=== PATIENT | female | born 1970 | race Caucasian/White ===

== ENCOUNTER 2020-01-11 13:20 | Outpatient (REF) | payer OTHER, SELFPAY | END 2020-01-11 13:21 | disposition home or self-care (01) | LOC: HO.LAB 13:20 | PROVIDERS: PCP Family Medicine; Visit Provider Internal Medicine | DX: Z20.828 Contact with and (suspected) exposure to other viral communicable diseases (principal) | CPT/HCPCS: C9803; U0003 ==

== ENCOUNTER 2020-12-12 12:24 | Outpatient (REF) | payer MEDICAID, SELFPAY | END 2020-12-12 12:25 | disposition home or self-care (01) | LOC: HO.LAB 12:24 | PROVIDERS: PCP Family Medicine; Visit Provider Internal Medicine | DX: Z20.822 Contact with and (suspected) exposure to COVID-19 (principal) | CPT/HCPCS: C9803; U0003; U0005 ==

== ENCOUNTER 2020-12-20 11:20 | Outpatient (REF) | payer MEDICAID, SELFPAY | END 2020-12-20 11:21 | disposition home or self-care (01) | LOC: HO.LAB 11:20 | PROVIDERS: PCP Family Medicine; Visit Provider Internal Medicine | DX: Z20.822 Contact with and (suspected) exposure to COVID-19 (principal) | CPT/HCPCS: C9803; U0003; U0005 ==

== ENCOUNTER 2021-02-26 10:32 | Outpatient (REF) | payer MEDICAID, SELFPAY ==
--- NOTE | ~2021-02-26 | MM_ITS ---
EXAMINATION: MM SCREENING DIGITAL BREAST TOMOSYNTHESIS, BILATERAL CLINICAL INFORMATION: Screening. Asymptomatic. The lifetime risk of breast cancer based on the Tyrer-Cuzick Model is 6%. COMPARISON: Mammography: 12/16/2018, 02/19/2015, 08/07/2014, 07/09/2014; right breast ultrasound 08/07/2014. TECHNIQUE: Digital breast tomosynthesis is performed in both the craniocaudal and mediolateral oblique views along with computer-aided detection (CAD). Synthesized 2D images are generated from the tomosynthesis. FINDINGS: There are scattered areas of fibroglandular density (ACR BI-RADS breast composition Category b). There are no significant masses, abnormal calcifications, or other abnormalities. No developing density. No significant changes. The axilla and skin contours are unremarkable. MM/MM tomosynthesis screening BI IMPRESSION: No mammographic evidence of malignancy. ASSESSMENT: BI-RADS 1: Negative RECOMMENDATION: Routine annual mammography screening. This patient's information was entered into a reminder system with a target due date for their next mammogram.
== END 2021-02-26 10:33 | disposition home or self-care (01) ==
LOC: HO.MAMMO 10:32
PROVIDERS: Visit Provider Family Medicine
DX: Z12.31 Encounter for screening mammogram for malignant neoplasm of breast (principal)
CPT/HCPCS: 77063; 77067

== ENCOUNTER → 2021-03-26 09:41 | Outpatient (BNVA) | payer MEDICAID, SELFPAY | PROVIDERS: PCP Family Medicine; Referring Provider Family Medicine; Visit Provider Nurse Practitioner Family | DX: K58.1 Irritable bowel syndrome with constipation (principal); K21.9 Gastro-esophageal reflux disease without esophagitis; R14.0 Abdominal distension (gaseous); E55.9 Vitamin D deficiency, unspecified | CPT/HCPCS: 99202 ==

== ENCOUNTER 2021-04-18 17:00 | Outpatient (RCR) | payer MEDICAID, SELFPAY | END 2021-05-02 11:32 | disposition home or self-care (01) | LOC: HO.PT 17:00 | PROVIDERS: PCP Family Medicine; Visit Provider Family Medicine | DX: M72.2 Plantar fascial fibromatosis (principal) | CPT/HCPCS: 97110; 97140; 97162 ==

== ENCOUNTER 2021-04-26 09:57 | Outpatient (REF) | payer MEDICAID, SELFPAY ==
[2021-04-26 11:25] LABS: TSH reflex Free T4 0.96 uIU/mL (0.32-4.0)
[2021-04-26 11:37] LABS: Folate 14.4 ng/mL (> or = 4.0); Vitamin B12 892 pg/mL (200-900)
[2021-04-29 15:17] LABS: Transglutaminase Ab IgG 1.2 U/mL; Transglutaminase IgA <1.0 U/mL
[2021-05-02 11:47] LABS: Vitamin D 25-OH, D2 <4 ng/mL; Vitamin D 25-OH, D3 31 ng/mL; Vitamin D 25-OH, Total 31 ng/mL (30-100)
== END 2021-04-26 09:58 | disposition home or self-care (01) ==
LOC: HO.LAB 09:57
PROVIDERS: PCP Family Medicine; Visit Provider Nurse Practitioner Family
DX: R10.11 Right upper quadrant pain (principal); R14.0 Abdominal distension (gaseous); E55.9 Vitamin D deficiency, unspecified; R19.7 Diarrhea, unspecified; K21.9 Gastro-esophageal reflux disease without esophagitis
CPT/HCPCS: 36415; 82306; 82607; 82746; 84443; 86364; 87338

== ENCOUNTER 2021-04-30 08:18 | Outpatient (REF) | payer MEDICAID, SELFPAY ==
[2021-04-30 09:42] LABS: Hematocrit 41.9 % (37.0-47.0); Hemoglobin 13.4 g/dl (12.0-16.0); Mean Corpuscular Volume 90.7 fL (80.0-98.0); Mean Platelet Volume 12.4 fL (9.4-12.3); Platelet Count 251 X10*3/uL (160-400); Red Blood Count 4.62 X10*6/uL (4.20-5.50); Red Cell Distribution Width 14.2 % (11.0-16.0); White Blood Count 7.1 X10*3/uL (4.8-10.8)
[2021-04-30 10:22] LABS: Alanine Aminotransferase 19 U/L (0-31); Albumin Level 3.8 g/dL (3.5-5.0); Alkaline Phosphatase 81 U/L (39-117); Anion Gap 8 (12-20); Aspartate Amino Transferase 20 U/L (5-31); Bilirubin Total 0.4 mg/dL (0.0-1.0); Blood Urea Nitrogen 9 mg/dL (9-16); Calcium 9.4 mg/dL (8.4-10.2); Carbon Dioxide 31 mmol/L (22-29); Chloride 107 mmol/L (96-108); Estimated Glomerular Filt Rate > 60; Glucose Random 97 mg/dL (60-115); Sodium 141 mmol/L (135-145); Total Protein 6.8 g/dL (6.5-8.0)
== END 2021-04-30 08:19 | disposition home or self-care (01) ==
LOC: HO.LAB 08:18
PROVIDERS: PCP Family Medicine; Referring Provider Family Medicine; Visit Provider Nurse Practitioner Family
DX: K58.1 Irritable bowel syndrome with constipation (principal); K21.9 Gastro-esophageal reflux disease without esophagitis
CPT/HCPCS: 36415; 80053; 85027; 99212

== ENCOUNTER 2021-06-18 10:05 | Outpatient (REF) | payer MEDICAID, SELFPAY ==
--- NOTE | ~2021-06-18 | XR_ITS ---
EXAMINATION: XR FOOT, LEFT CLINICAL INFORMATION: Pain in the left foot. COMPARISON: Left ankle x-ray September 2015. TECHNIQUE: AP, lateral, and oblique views of the left foot. FINDINGS: Small plantar calcaneal spur. Bones, joints and soft tissues otherwise unremarkable. XR/XR foot LT min 3V IMPRESSION: Small plantar calcaneal spur.
== END 2021-06-18 10:06 | disposition home or self-care (01) ==
LOC: HO.XRAY 10:05
PROVIDERS: Absent Provider Family Medicine; PCP Family Medicine; Visit Provider Emergency Medicine
DX: M79.672 Pain in left foot (principal)
CPT/HCPCS: 73630

== ENCOUNTER 2021-07-12 09:35 | Day surgery (SDC) | payer MEDICAID, SELFPAY ==
[2021-07-08 10:09] VITALS: BMI 32.8
--- NOTE | 2021-07-11 12:05 | P.CONAN_ITS ---
Documented by User: Cindy James NP 07/11/21 12:06 HPI - Anesthesia Eval Consult details Narrative: 51yo F for Upper Endoscopy and Colonoscopy [facility] Past Medical History Medical History (Updated 07/08/21 @ 10:02 by Tamiko Madrid RN) Asthma Elevated cholesterol Fibromyalgia Gastritis History of COVID-19 HTN (hypertension) Family History Family History (Updated 03/26/21 @ 10:28 by Solange Bowden) Mother HTN (hypertension) Brother HTN (hypertension) Surgical History Surgical History (Updated 07/08/21 @ 10:02 by Tamiko Madrid RN) History of esophagogastroduodenoscopy (EGD) Hx of meniscectomy of right knee Social History Social History Alcohol intake: never Patient Tobacco Use Status: Never used Tobacco Substance Use Type Other:: last used yesterday Substance Use Frequency: Daily Are you DNR?: No Advance Directives: No Advance Directives Information Provided: Yes Recently lost weight without trying: No Meds Allergies Allergy/AdvReac Type Severity Reaction Status Date / Time trazodone [TRAZODONE] Allergy Severe SEIZURE Verified 04/30/21 08:23 tramadol Allergy Unknown seizures Verified 04/30/21 08:23 Home Medications Medication Instructions Recorded Confirmed Last Taken Type amlodipine 10 mg tablet 10 mg PO DAILY 03/26/21 03/26/21 Unknown History cholecalciferol (vitamin D3) 50 50 mcg PO DAILY 03/26/21 03/26/21 Unknown History mcg (2,000 unit) capsule mecobalamin (vitamin B12) 1,000 1,000 mcg SUBLINGUAL BEDTIME 03/26/21 03/26/21 Unknown History mcg disintegrating tablet,sublingual pregabalin 150 mg capsule (Lyrica) 150 mg PO BID 03/26/21 03/26/21 Unknown History quetiapine 50 mg tablet (Seroquel) 50 mg PO BEDTIME 03/26/21 03/26/21 Unknown [facility] Exam Exam Date and Time: July 11, 2021 1205 Height,Weight and Vital Signs: Height 5 ft 7 in Weight 94.971 kg Pertinent Lab Results Pertinent Lab Results: Laboratory Tests 04/30/21 04/30/21 09:15 09:15 WBC 7.1 Hgb 13.4 Hct 41.9 Plt Count 251 Sodium 141 Potassium 5.0 Chloride 107 Carbon Dioxide 31 H BUN 9 Creatinine 0.83 Assessment and Plan Assessment Anesthesia Assessment: Chart Reviewed Documented by User: Shirley Rod MD 07/12/21 10:59 [facility] Past Medical History Medical History (Updated 07/08/21 @ 10:02 by Tamiko Madrid, CHYNA) Asthma Elevated cholesterol Fibromyalgia Gastritis History of COVID-19 HTN (hypertension) Family History Family History (Updated 03/26/21 @ 10:28 by Solange Bowden) Mother HTN (hypertension) Brother HTN (hypertension) Family history of problems with anesthesia: No Surgical History Surgical History (Updated 07/08/21 @ 10:02 by Tamiko Madrid RN) History of esophagogastroduodenoscopy (EGD) Hx of meniscectomy of right knee History of Problems with Anesthesia: No Social History Social History Alcohol intake: never Patient Tobacco Use Status: Never used Tobacco Substance Use Type Other:: last used yesterday Substance Use Frequency: Daily Are you DNR?: No Advance Directives: No Advance Directives Information Provided: Yes Recently lost weight without trying: No Meds Allergies Allergy/AdvReac Type Severity Reaction Status Date / Time trazodone [TRAZODONE] Allergy Severe SEIZURE Verified 04/30/21 08:23 tramadol Allergy Unknown seizures Verified 04/30/21 08:23 Home Medications Medication Instructions Recorded Confirmed Last Taken Type amlodipine 10 mg tablet 10 mg PO DAILY 03/26/21 03/26/21 Unknown History cholecalciferol (vitamin D3) 50 50 mcg PO DAILY 03/26/21 03/26/21 Unknown History mcg (2,000 unit) capsule mecobalamin (vitamin B12) 1,000 1,000 mcg SUBLINGUAL BEDTIME 03/26/21 03/26/21 Unknown History mcg disintegrating tablet,sublingual pregabalin 150 mg capsule (Lyrica) 150 mg PO BID 03/26/21 03/26/21 Unknown History quetiapine 50 mg tablet (Seroquel) 50 mg PO BEDTIME 03/26/21 03/26/21 Unknown History Exam Airway Mallampati Class: II TM Dist: >3cm Neck ROM: Full Heart: rrr Lungs: cta Assessment and Plan Assessment Anesthesia Assessment: Anesthesia Plan Discussed and Chart Reviewed Final Anesthetic Review Family History of Problems with Anesthesia: No History of Problems with Anesthesia: No NPO: Yes ASA Class: II Final Preanesthetic Review: No Changes in Pt Med Stat, Meds/Allgs Chart Reviewed and Consent Obtained/Reviewed Patient Risk: Intermediate Procedure Risk: Intermediate Anesthetic Plan Anesthetic Plan: MAC: Disposition: Standard PACU
[2021-07-12 10:50] VITALS: BMI 34.4
--- NOTE | 2021-07-12 10:56 | MHC.SHP ---
Pre-Procedural Eval Section A Date of Service: 07/12/21 The History & Physical has been completed within 30 days and I have reviewed it.: No Section B Chief Complaint: screening,reflux Details of Present Illness: Colon cancer screen, GERD, IBS Relevant Family History (Specify if Yes): No Relevant Social History: None Present Medications: see Short Stay Collaborative assessment Medical History: Significant History (asthma, fibromyalgia, history of COVID 19 infection) History of Previous Operations: Relevant previous surgery/procedure and date(s) (History of EGD) Allergies: Allergies Allergy/AdvReac Type Severity Reaction Status Date / Time trazodone [TRAZODONE] Allergy Severe SEIZURE Verified 04/30/21 08:23 tramadol Allergy Unknown seizures Verified 04/30/21 08:23 Review of Systems Sugical H&P ROS: Negative: Constitution, Cardiovascular, Respiratory and Gastrointestinal Exam Surgical H&P Exam: Normal: Heart, Normal: Lungs, Normal: Extremities and Normal: Abdomen Plan Diagnosis/Plan: Unchanged I have reviewed the history and physical and performed a pertinent physical examination on my patient. No changes have occurred unless specified.
--- NOTE | 2021-07-12 11:09 | P.BOP_ITS ---
Brief Operative Note Date of Service: 07/12/21 Pre-op diagnosis: Colon cancer screening, GERD, IBS Post-op diagnosis: other (gastritis, colon polyps, hemorrhoids) Procedure: FLEXIBLE TRANSORAL UPPER GASTROINTESTINAL ENDOSCOPY WITH BIOPSIES AND COLONOSCOPY TILL CECUM WITH BIOPSIES AND SNARE POLYPECTOMY UPPER ENDOSCOPY Consent: Indications for the procedure and potential complications of bleeding, perforation, reaction to medications and missed diagnosis were discussed with the patient and informed consent was obtained. Instrument: Olympus GIF H 190 mid size upper endoscope Monitoring: Vital signs and clinical assessment, continuous EKG monitoring, Pulse oximetry, Carbon Dioxide monitoring and blood pressure monitoring were done throughout the procedure. Procedure: The patient was placed in the left lateral decubitis position and pre-procedure medications were administered and a bite block was placed. The endoscope was inserted into the mouth and advanced under direct vision to the third part of duodenum. A careful inspection was made as the upper endoscope was withdrawn including a retroflexed examination of the proximal stomach; Findings and interventions are described below. Findings: Larynx: Normal Esophagus: GE junction at 40 cms. No esophagitis or Roman's. Stomach: Moderate diffuse gastric erythema with chronic appearing 1-2 mm erosions in the antrum. Biopsies were obtained from the antrum and body of the stomach. Grade 2 flap valve on retroflexed examination of the cardia. Duodenum: Normal bulb and descending duodenum. Biopsies were obtained from 3rd part of the duodenum to check for celiac sprue Intervention: Biopsies as noted above COLONOSCOPY PROCEDURE NOTE Consent: Indications for the procedure and potential complications of bleeding, perforation, reaction to medications and missed diagnosis were discussed with the patient and informed consent was obtained. Instrument: Olympus PCF H 190 L variable stiffness pediatric colonoscope Monitoring: Vital signs and clinical assessment, intermittent blood pressure monitoring, continuous EKG monitoring, Pulse oximetry and Carbon Dioxide monitoring were done throughout the procedure. Colon withdrawl time was 24 minutes. Procedure: The patient was placed in the left lateral decubitis position and pre-procedure medications were administered. After a digital rectal examination of the ano-rectum, the video colonoscope was inserted into the rectum and advanced through the colon to the cecum. The colonoscope was slowly withdrawn in a retrograde panoramic fashion and the colon mucosa was carefully examined including a retroflexed view of the rectum. Findings and interventions are described below. Procedure Difficulty: : Without difficulty Findings: Terminal Ileum: Distal 5 cms was examined and appeared normal Cecum: Normal Ascending Colon: Normal Transverse Colon: A 10 mm sessile polyp in the proximal TC removed with a cold snare. Residual polyp was removed with a cold biopsy Descending Colon: Normal Sigmoid Colon: A 7-8 mm sessile polyp removed with the cold snare Rectum: Normal Ano-rectum: Moderate internal hemorrhoids Colon preparation: Good to Fair despite copious irrigation Impression and Post Procedure Diagnosis: Endoscopy Findings: STOMACH: Moderate diffuse gastric erythema with chronic appearing 1-2 mm erosions in the antrum. Biopsies were obtained from the antrum and body of the stomach. DUODENUM: Normal - biopsied to check for celiac sprue Colonoscopy Findings: One small and one medium sized polyps removed Random biopsies obtained from the right colon. Moderate hemorrhoids on retroflexed exam. Plan: Await pathology results Patient has an appointment on 07/26/21 in the GI Clinic with Janel Lai FNP- BC . Repeat Colonoscopy interval based on path results - in 3 years if polyps are adenomatous and due to fair prep. Above findings were reviewed with the patient and colon polyps and GERD handouts were given in the discharge area Surgeon: Mary Ortega MD Anesthesia: MAC (Dr Gunn) Was an Society Reporter used for this Procedure?: Yes Society Reporter: Debbie Elizabeth Estimated blood loss (mL): 0 Pathology: other (A. SMALL BOWEL BXS, R/O CELIAC B. GASTRIC ANTRUM BXS, R/O H. PYLORI C. GASTRIC BODY BXS D. TRANSVERSE COLON POLYP E. RANDOM RIGHT COLON F. SIGMOID COLON POLYP) Condition: stable Disposition: PACU
--- NOTE | 2021-07-12 11:10 | P.OP_ITS ---
Operative Note Operative Note Date of Service: 07/12/21 Narrative: Pre-op diagnosis: Colon cancer screening, GERD, IBS Post-op diagnosis:?other (gastritis, colon polyps, hemorrhoids) Procedure: FLEXIBLE TRANSORAL UPPER GASTROINTESTINAL ENDOSCOPY WITH BIOPSIES AND COLONOSCOPY TILL CECUM WITH BIOPSIES AND SNARE POLYPECTOMY UPPER ENDOSCOPY Consent:?Indications for the procedure and potential complications of bleeding, perforation, reaction to medications and missed diagnosis were discussed with the patient and informed consent was obtained. Instrument:?Olympus GIF H 190 mid size upper endoscope Monitoring: Vital signs and clinical assessment, continuous EKG monitoring, Pulse oximetry, Carbon Dioxide monitoring and blood pressure monitoring were done throughout the procedure. Procedure:?The patient was placed in the left lateral decubitis position and pre-procedure medications were administered and a bite block was placed. The endoscope was inserted into the mouth and advanced under direct vision to the third part of duodenum. A careful inspection was made as the upper endoscope was withdrawn including a retroflexed examination of the proximal stomach; Findings and interventions are described below. Findings: Larynx:? Normal Esophagus:?GE junction at 40 cms. No esophagitis or Roman's. Stomach:?Moderate diffuse gastric erythema with chronic appearing 1-2 mm erosions in the antrum. Biopsies were obtained from the antrum and body of the stomach. Grade 2 flap valve on retroflexed examination of the cardia. Duodenum:?Normal bulb and descending duodenum.? Biopsies were obtained from 3rd part of the duodenum to check for celiac sprue Intervention:?Biopsies as noted above COLONOSCOPY PROCEDURE NOTE Consent:?Indications for the procedure and potential complications of bleeding, perforation, reaction to medications and missed diagnosis were discussed with the patient and informed consent was obtained. Instrument:?Olympus PCF H 190 L variable stiffness pediatric colonoscope Monitoring:?Vital signs and clinical assessment, intermittent blood pressure monitoring, continuous EKG monitoring, Pulse oximetry and Carbon Dioxide monitoring were done throughout the procedure. Colon withdrawl time was 24 minutes. Procedure:?The patient was placed in the left lateral decubitis position and pre-procedure medications were administered. After a digital rectal examination of the ano-rectum, the video colonoscope was inserted into the rectum and advanced through the colon to the cecum. The colonoscope was slowly withdrawn in a retrograde panoramic fashion and the colon mucosa was carefully examined including a retroflexed view of the rectum. Findings and interventions are described below. Procedure Difficulty:?: Without difficulty Findings: Terminal Ileum: Distal 5 cms was examined and appeared normal Cecum:? Normal Ascending Colon:??Normal Transverse Colon:??A 10 mm sessile polyp in the proximal TC removed with a cold snare.? Residual polyp was removed with a cold biopsy Descending Colon:? Normal Sigmoid Colon:??A 7-8 mm sessile polyp removed with the cold snare Rectum:??Normal Ano-rectum:??Moderate internal hemorrhoids Colon preparation:? Good to Fair despite copious irrigation Impression and Post Procedure Diagnosis: Endoscopy Findings: STOMACH: Moderate diffuse gastric erythema with chronic appearing 1-2 mm erosions in the antrum. Biopsies were obtained from the antrum and body of the stomach. DUODENUM: Normal - biopsied to check for celiac sprue Colonoscopy Findings: One small and one medium sized polyps removed Random biopsies obtained from the right colon. Moderate hemorrhoids on retroflexed exam. Plan: Await pathology results Patient has an appointment on 07/26/21 in the GI Clinic with Janel Lai FNP- [place] . Repeat Colonoscopy interval based on path results - in 3 years if polyps are adenomatous and due to fair prep. Above findings were reviewed with the patient and colon polyps and GERD handouts were given in the discharge area Surgeon: Mary Ortega MD Anesthesia:?MAC (Dr Gunn) Was an Mortician Helper used for this Procedure?:?Yes Mortician Helper:?Debbie Elizabeth Estimated blood loss (mL):?0 Pathology:?other (A. SMALL BOWEL BXS, R/O CELIAC? B. GASTRIC ANTRUM BXS, R/O H. PYLORI? C. GASTRIC BODY BXS? D. TRANSVERSE COLON POLYP? E. RANDOM RIGHT COLON? F. SIGMOID COLON POLYP) Condition:?stable Disposition:?PACU
[2021-07-12] MEDS: Lactated Ringers 1,000 ML 100 ML IVCONT (11:11)
[2021-07-12 12:05] VITALS: BP 128/73; PULSE 67; RESP 16; TEMP 36.2; O2SAT 97
[2021-07-12 12:20] VITALS: BP 147/79; PULSE 56; RESP 16; TEMP 36.2; O2SAT 100
== END 2021-07-12 12:52 | disposition home or self-care (01) ==
PROVIDERS: PCP Family Medicine; Visit Provider Internal Medicine Gastroenterology
PROC: (CPT 45385; principal; 2021-07-12 11:40)
DX: Z12.11 Encounter for screening for malignant neoplasm of colon (principal); D12.5 Benign neoplasm of sigmoid colon; K63.5 Polyp of colon; K58.1 Irritable bowel syndrome with constipation; K21.9 Gastro-esophageal reflux disease without esophagitis; K29.50 Unspecified chronic gastritis without bleeding; K64.8 Other hemorrhoids; I10 Essential (primary) hypertension; J45.909 Unspecified asthma, uncomplicated; E78.00 Pure hypercholesterolemia, unspecified; M79.7 Fibromyalgia; Z79.899 Other long term (current) drug therapy; Z88.8 Allergy status to other drugs, medicaments and biological substances; Z86.16 Personal history of COVID-19
CPT/HCPCS: 45385; 45380; 43239; 88305; 88342

== ENCOUNTER → 2021-09-05 16:14 | Outpatient (BNVA) | payer MEDICAID, SELFPAY | PROVIDERS: PCP Family Medicine; Visit Provider Nurse Practitioner Family | DX: K58.0 Irritable bowel syndrome with diarrhea (principal); D12.5 Benign neoplasm of sigmoid colon; K21.9 Gastro-esophageal reflux disease without esophagitis; E11.9 Type 2 diabetes mellitus without complications; Z98.890 Other specified postprocedural states | CPT/HCPCS: 99212 ==

== ENCOUNTER 2021-12-10 10:50 | Outpatient (REF) | payer MEDICAID, SELFPAY | END 2021-12-10 10:51 | disposition home or self-care (01) | LOC: HO.XRAY 10:50 | PROVIDERS: PCP Family Medicine; Visit Provider Emergency Medicine | DX: M54.41 Lumbago with sciatica, right side (principal) | CPT/HCPCS: 72110 ==

== ENCOUNTER 2022-03-27 09:39 | Outpatient (REF) | payer MEDICAID, SELFPAY ==
[2022-03-27 10:42] LABS: Estimated Average Glucose 123 mg/dL; Hemoglobin A1c % 5.9 %
[2022-03-27 11:16] LABS: Lipase 20 U/L (8-78)
== END 2022-03-27 09:40 | disposition home or self-care (01) ==
LOC: HO.LAB 09:39
PROVIDERS: PCP Family Medicine; Visit Provider Nurse Practitioner Family
DX: E11.9 Type 2 diabetes mellitus without complications (principal); R10.9 Unspecified abdominal pain
CPT/HCPCS: 36415; 83036; 83690

== ENCOUNTER 2022-03-29 12:01 | Outpatient (REF) | payer MEDICAID, SELFPAY ==
[2022-04-05 17:17] LABS: Pancreatic Elastase-1 >500 mcg/g
== END 2022-03-29 12:02 | disposition home or self-care (01) ==
LOC: HO.LNP 12:01
PROVIDERS: Visit Provider Nurse Practitioner Family
DX: K21.9 Gastro-esophageal reflux disease without esophagitis (principal); R10.9 Unspecified abdominal pain
CPT/HCPCS: 82656; 87338

== ENCOUNTER → 2022-04-21 10:18 | Outpatient (BNVA) | payer MEDICAID, SELFPAY | PROVIDERS: PCP Family Medicine; Visit Provider Nurse Practitioner Family | DX: K58.2 Mixed irritable bowel syndrome (principal); K21.9 Gastro-esophageal reflux disease without esophagitis | CPT/HCPCS: 99212 ==

== ENCOUNTER 2022-04-30 02:58 | Emergency (ER) | payer MEDICAID, SELFPAY ==
[2022-04-30 03:19] VITALS: BP 127/84; PULSE 72; RESP 18; TEMP 36.6; O2SAT 97; BMI 37.5
--- NOTE | 2022-04-30 03:57 | ED.NECK ---
HPI - Neck Pain/Injury General Chief Complaint: Neck Pain/Injury Stated Complaint: Neck pain into back Time Seen by Provider: 04/30/22 03:57 Source: patient Mode of arrival: ambulatory Limitations: no limitations History of Present Illness HPI Narrative: Patient with history of fibromyalgia woke of with pain upper back similar to that in the past no muscle weakness no paresthesia no fever no chills no URI symptoms Related Data Home Medications Medication Instructions Recorded Confirmed amlodipine 10 mg tablet 10 mg PO DAILY 03/26/21 03/26/21 cholecalciferol (vitamin D3) 50 50 mcg PO DAILY 03/26/21 03/26/21 mcg (2,000 unit) capsule mecobalamin (vitamin B12) 1,000 1,000 mcg sublingual BEDTIME 03/26/21 03/26/21 mcg disintegrating tablet,sublingual pregabalin 150 mg capsule (Lyrica) 150 mg PO BID 03/26/21 03/26/21 quetiapine 50 mg tablet (Seroquel) 50 mg PO BEDTIME 03/26/21 03/26/21 Previous Rx's Medication Instructions Recorded sennosides 8.6 mg tablet (Natural 8.6 mg PO BEDTIME constipation #30 07/24/21 Senna Laxative) tabs methylcellulose (laxative) 500 mg 500 mg PO DAILY #30 tabs 10/04/21 tablet (Citrucel) esomeprazole magnesium 40 mg 40 mg PO DAILY #30 caps 04/21/22 capsule,delayed release (Nexium) polyethylene glycol 3350 17 17 g PO DAILY #510 grams 04/21/22 gram/dose oral powder (Miralax) simethicone 125 mg capsule (Gas 125 mg PO TID-QID PRN abdominal 04/21/22 Relief (simethicone)) distention #120 caps tramadol 50 mg tablet 50 mg PO Q6H PRN pain #20 tabs 04/30/22 Allergies Allergy/AdvReac Type Severity Reaction Status Date / Time trazodone [TRAZODONE] Allergy Severe SEIZURE Verified 04/30/22 03:24 Review of Systems Review of Systems: Yes all other systems are reviewed and are negative PMFSH Past Medical History Medical History Asthma Elevated cholesterol Fibromyalgia Gastritis History of COVID-19 HTN (hypertension) Tubular adenoma Surgical History History of esophagogastroduodenoscopy (EGD) Hx of colonoscopy Hx of meniscectomy of right knee Family History Family History Mother HTN (hypertension) Brother HTN (hypertension) Social History Social History Alcohol intake: current Alcohol intake frequency: a few times a week Alcohol type: beer Patient Tobacco Use Status: Never used Tobacco Smoked in Last 30 Days: Yes Use of substances other than those prescribed or required for medical reasons: No Advance Directives: No Advance Directives Information Provided: Yes Physical Exam Vital Signs: Vital Signs: Last Vital Signs Temp 98 F 04/30/22 03:59 Pulse 63 04/30/22 03:59 Resp 15 04/30/22 03:59 BP 147/88 H 04/30/22 03:59 Pulse Ox 97 04/30/22 03:59 O2 Del Method 04/30/22 03:59 BMI result Body Mass Index 37.5 Appearance: Alert. Oriented X3. No acute distress. Eyes: PERRLA, No Nystagmus ENT: Pharynx normal. Oral Mucosa moist Neck: Normal inspection. Neck supple. No midline tenderness diffuse tenderness trapezius area bilaterally CVS: Normal heart rate and rhythm. Pulses normal. Respiratory: No respiratory distress. Equal air entry bilateral, no wheezing/rales/rhonchi Abdomen: Soft and nontender. Bowel sounds are present, Skin: Skin warm and dry. Normal skin color. Normal skin turgor. Extremities: No lower extremity edema. No calf tenderness Neuro: Oriented X 3. No motor deficit. No sensory deficit.No cerebellar signs , cranial nerves II-XII intact Medications Administered Discontinued Medications Generic Name Dose Route Start Last Admin Trade Name Freq PRN Reason Stop Dose Admin Cyclobenzaprine HCl 10 mg 04/30/22 04:12 04/30/22 04:22 Cyclobenzaprine Hcl 10 Mg Tablet PO 04/30/22 04:13 10 mg ONCE ONE Administration Morphine Sulfate 4 mg 04/30/22 04:12 04/30/22 04:23 Morphine Sulfate 4 Mg/Ml Cartridge IM 04/30/22 04:13 4 mg ONCE ONE Administration Protocol Tramadol HCl 50 mg 04/30/22 04:12 04/30/22 04:22 Tramadol Hcl 50 Mg Tablet PO 04/30/22 04:13 50 mg ONCE ONE Administration Medical Decision Making Medical Decision Making [facility] Narrative: Patient with fibromyalgia with pain in upper back area discharge patient home on tramadol patient is on Lyrica Discharge Plan Discharge Clinical Impression: Fibromyalgia Patient Disposition: Home, Self-Care Instructions: Fibromyalgia (ED) Additional Instructions: Continue Lyrica Tramadol for increased pain as needed For the PCP Prescriptions: New tramadol 50 mg tablet 50 mg PO Q6H PRN (Reason: pain) Qty: 20 0RF No Action sennosides [Natural Senna Laxative] 8.6 mg tablet 8.6 mg PO BEDTIME Qty: 30 3RF Citrucel 500 mg tablet 500 mg PO DAILY Qty: 30 2RF Rx Instructions: take it with full glass of water esomeprazole magnesium [Nexium] 40 mg capsule,delayed release(DR/EC) 40 mg PO DAILY Qty: 30 5RF simethicone [Gas Relief (simethicone)] 125 mg capsule 125 mg PO TID-QID PRN (Reason: abdominal distention) Qty: 120 2RF polyethylene glycol 3350 [Miralax] 17 gram/dose powder 17 g PO DAILY Qty: 510 2RF pregabalin [Lyrica] 150 mg capsule 150 mg PO BID cholecalciferol (vitamin D3) 50 mcg (2,000 unit) capsule 50 mcg PO DAILY mecobalamin (vitamin B12) 1,000 mcg tablet,disintegrating 1,000 mcg sublingual BEDTIME Rx Instructions: place tablet under tongue and allow to dissolve for at least30 secs before swallowing amlodipine 10 mg tablet 10 mg PO DAILY quetiapine [Seroquel] 50 mg tablet 50 mg PO BEDTIME Stand Alone Forms: Work/School Release Interventions: ED Discharge Assessment Last Done: 04/30/22 05:21 Discharge Date/Time: 04/30/22 05:22
[2022-04-30 03:59] VITALS: BP 147/88; PULSE 63; RESP 15; TEMP 36.6; O2SAT 97
[2022-04-30] MEDS: Cyclobenzaprine HCl 10 MG TABLET PO (04:22)
[2022-04-30] MEDS: traMADoL HCL 50 MG TABLET PO (04:22)
[2022-04-30] MEDS: Morphine Sulfate 4 MG/ML CARTRIDGE IM (04:23)
== END 2022-04-30 05:22 | disposition home or self-care (01) ==
PROVIDERS: Emergency Provider Internal Medicine; PCP Family Medicine
DX: M54.2 Cervicalgia (principal); M79.7 Fibromyalgia; Z79.899 Other long term (current) drug therapy
CPT/HCPCS: 96372; 99284; J2270

== ENCOUNTER 2022-08-13 10:14 | Emergency (ER) | payer MEDICAID, SELFPAY ==
[2022-08-13 11:32] VITALS: BP 146/90; PULSE 65; RESP 16; TEMP 36; O2SAT 96; BMI 38.7
--- NOTE | 2022-08-13 11:37 | ED.GENADULT ---
HPI - General Adult General Chief complaint: General Medical Stated complaint: sharp neck/ side pain History of Present Illness HPI narrative: 52-year-old female with past medical history significant for fibromyalgia presents for evaluation of right shoulder pain. She states her symptoms started yesterday. Her pain radiates to the right side of her head and into her right lower back. She reports some numbness and tingling in the right arm Reports history of similar Denies any heavy lifting, trauma to head or neck. She took 1 Flexeril earlier without any improvement Her pain is an 10/16 Related Data Home Medications Medication Instructions Recorded Confirmed amlodipine 10 mg tablet 10 mg PO DAILY 03/26/21 03/26/21 cholecalciferol (vitamin D3) 50 50 mcg PO DAILY 03/26/21 03/26/21 mcg (2,000 unit) capsule mecobalamin (vitamin B12) 1,000 1,000 mcg sublingual BEDTIME 03/26/21 03/26/21 mcg disintegrating tablet,sublingual pregabalin 150 mg capsule (Lyrica) 150 mg PO BID 03/26/21 03/26/21 quetiapine 50 mg tablet (Seroquel) 50 mg PO BEDTIME 03/26/21 03/26/21 Previous Rx's Medication Instructions Recorded sennosides 8.6 mg tablet (Natural 8.6 mg PO BEDTIME constipation #30 07/24/21 Senna Laxative) tabs methylcellulose (laxative) 500 mg 500 mg PO DAILY #30 tabs 10/04/21 tablet (Citrucel) esomeprazole magnesium 40 mg 40 mg PO DAILY #30 caps 04/21/22 capsule,delayed release (Nexium) simethicone 125 mg capsule (Gas 125 mg PO TID-QID PRN abdominal 04/21/22 Relief (simethicone)) distention #120 caps tramadol 50 mg tablet 50 mg PO Q6H PRN pain #20 tabs 04/30/22 polyethylene glycol 3350 17 17 g PO DAILY #510 grams 08/05/22 gram/dose oral powder (Miralax) cyclobenzaprine 10 mg tablet 10 mg PO TID PRN muscle spasm #15 08/13/22 tabs ibuprofen 600 mg tablet 600 mg PO TID PRN pain #15 tabs 08/13/22 Allergies Allergy/AdvReac Type Severity Reaction Status Date / Time trazodone [TRAZODONE] Allergy Severe SEIZURE Verified 04/30/22 03:24 Review of Systems Constitutional: Constitutional: Reports headache(s) ENT: Reports headache(s) and Reports neck pain Musculoskeletal: Musculoskeletal: Reports muscle cramps, Reports neck pain, Reports numbness and Reports stiffness Neurologic: Reports headache(s) and Reports numbness PMFSH Past Medical History Medical History Asthma Elevated cholesterol Fibromyalgia Gastritis History of COVID-19 HTN (hypertension) Tubular adenoma Surgical History History of esophagogastroduodenoscopy (EGD) Hx of colonoscopy Hx of meniscectomy of right knee Family History Family History Mother HTN (hypertension) Brother HTN (hypertension) Social History Social History Alcohol intake: current Alcohol intake frequency: a few times a week Alcohol type: beer Patient Tobacco Use Status: Never used Tobacco Physical Exam ED Vital Signs: Vital Signs - 24 hr 08/13/22 11:32 Temperature 96.8 F Pulse Rate 65 Respiratory Rate 16 Blood Pressure 146/90 H Pulse Oximetry 96 Oxygen Delivery Method Room Air BMI result Body Mass Index 38.7 Const General: healthy appearing, comfortable, no acute distress, alert and awake Nutritional Appearance: well nourished Orientation/consciousness: patient oriented x3 HENMT Head: Yes normocephalic and Yes atraumatic Eyes Eyelids: Yes eyelids normal Conjunctivae: conjunctivae normal Sclerae: sclerae normal Corneas: corneas normal Pupils: Equal, round and reactive pupils present EOM: EOMs intact bilaterally Neck Neck: Yes full ROM Resp Effort & Inspection: normal respiratory effort, no audible wheezes and not labored Back/Spine/Pelvis Other: Tenderness in the right trapezius muscle group. No obvious deformities. Moving all extremities well including the right upper extremity. No spinal tenderness Skin General skin exam: no rashes or lesions noted Neuro General: patient oriented x3 Cranial nerves: Yes Equal, round and reactive pupils present and Yes Bilaterally intact EOM present Cognition (Neuro): normal cognition Extrem Other: Moving all extremities well without any obvious deformities Medical Decision Making Medical Decision Making MDM Narrative: 52-year-old female presents for evaluation of right-sided cervical pain, trapezius muscle group pain that radiates up into her neck, consistent with tension headache. Patient has a negative neuro exam. There was no trauma, no indication for emergent imaging at this time. We will treat with ibuprofen in addition to her Flexeril. Differential Diagnosis Muscle strain Spasmodic torticollis Trapezius muscle group tenderness Cervical strain Tension headache Discharge Plan Discharge Clinical Impression: Strain of cervical portion of right trapezius muscle, Acute tension headache Patient Disposition: Home, Self-Care Instructions: Acute Headache (ED) Additional Instructions: Use ibuprofen as needed for your pain. You may use Flexeril as needed for muscle spasms Use warm compresses to the sore area Follow-up with your primary doctor Prescriptions: New ibuprofen 600 mg tablet 600 mg PO TID PRN (Reason: pain) Qty: 15 0RF cyclobenzaprine 10 mg tablet 10 mg PO TID PRN (Reason: muscle spasm) Qty: 15 0RF No Action sennosides [Natural Senna Laxative] 8.6 mg tablet 8.6 mg PO BEDTIME Qty: 30 3RF Citrucel 500 mg tablet 500 mg PO DAILY Qty: 30 2RF Rx Instructions: take it with full glass of water polyethylene glycol 3350 [Miralax] 17 gram/dose powder 17 g PO DAILY Qty: 510 6RF tramadol 50 mg tablet 50 mg PO Q6H PRN (Reason: pain) Qty: 20 0RF esomeprazole magnesium [Nexium] 40 mg capsule,delayed release(DR/EC) 40 mg PO DAILY Qty: 30 5RF simethicone [Gas Relief (simethicone)] 125 mg capsule 125 mg PO TID-QID PRN (Reason: abdominal distention) Qty: 120 2RF pregabalin [Lyrica] 150 mg capsule 150 mg PO BID cholecalciferol (vitamin D3) 50 mcg (2,000 unit) capsule 50 mcg PO DAILY mecobalamin (vitamin B12) 1,000 mcg tablet,disintegrating 1,000 mcg sublingual BEDTIME Rx Instructions: place tablet under tongue and allow to dissolve for at least30 secs before swallowing amlodipine 10 mg tablet 10 mg PO DAILY quetiapine [Seroquel] 50 mg tablet 50 mg PO BEDTIME
== END 2022-08-13 11:51 | disposition home or self-care (01) ==
PROVIDERS: Emergency Provider Internal Medicine; PCP Family Medicine
DX: S46.811A Strain of other muscles, fascia and tendons at shoulder and upper arm level, right arm, initial encounter (principal); X58.XXXA Exposure to other specified factors, initial encounter; G44.209 Tension-type headache, unspecified, not intractable; I10 Essential (primary) hypertension; E78.5 Hyperlipidemia, unspecified; Z79.899 Other long term (current) drug therapy; Y93.9 Activity, unspecified; Y92.9 Unspecified place or not applicable; Y99.9 Unspecified external cause status
CPT/HCPCS: 99282; 99283

== ENCOUNTER 2022-11-05 14:19 | Outpatient (REF) | payer MEDICAID, SELFPAY ==
--- NOTE | 2022-11-05 14:27 | EMG_ITS ---
Chief complaint: Right hand numbness, neck pain, history of fibromyalgia Reason for referral: Evaluate for Carpal Tunnel Syndrome Referred by: Dr. Robert Bahena Procedure done: Right upper extremity NCS/EMG Precautions and/or limitations: None The limb temperature was monitored continuously and remained between 32-36 degrees C during the performance of the NCS. Nerve Conduction Studies Anti Sensory Summary Table ?Stim Site NR Onset (ms) Norm Onset (ms) Peak (ms) Norm Peak (ms) O-P Amp (?V) Norm O-P Amp Site1 Site2 Delta-0 (ms) Dist (cm) Mert (m/s) Norm Mert (m/s) Right Median Anti Sensory (2nd Digit) Wrist ? 3.5 4.1 <3.6 14.5 >10 Wrist 2nd Digit 3.5 14.0 40 Right Radial Anti Sensory (Thumb) Forearm ? 1.9 2.3 <3.1 15.9 Forearm Thumb 1.9 0.0 Right Ulnar Anti Sensory (5th Digit) Wrist ? 2.6 3.1 <3.7 15.3 >15.0 Wrist 5th Digit 2.6 14.0 54 Motor Summary Table ?Stim Site NR Onset (ms) Norm Onset (ms) O-P Amp (mV) Norm O-P Amp iAmp (mV) Amp (1st) (%) Site1 Site2 Delta-0 (ms) Dist (cm) Mert (m/s) Norm Mert (m/s) Right Median Motor (Abd Poll Brev) Wrist ? 4.3 <3.9 7.8 >4.5 9.6 100.0 Elbow Wrist 3.6 20.0 56 >45 Elbow ? 7.9 7.9 9.7 101.3 Right Ulnar Motor Run #2 (Abd Dig Minimi) Wrist ? 2.7 <3.0 6.1 >5 7.3 100.0 B Elbow Wrist 2.9 19.0 66 >45 B Elbow ? 5.6 6.1 7.4 100.0 A Elbow B Elbow 1.4 10.0 71 >45 A Elbow ? 7.0 5.9 7.5 96.7 EMG ?Side Muscle Nerve Root Ins Act Fibs Psw Amp Dur Poly Recrt Int Pat Comment Right FlexCarRad Median C6-7 Nml Nml Nml Nml Nml 0 Nml Complete Right Biceps Musculocut C5-6 Nml Nml Nml Nml Nml 0 Nml Complete Right Triceps Radial C6-7-8 Nml Nml Nml Nml Nml 0 Nml Complete Right Deltoid Axillary C5-6 Nml Nml Nml Nml Nml 0 Nml Complete Right Abd Poll Brev Median C8-T1 Nml Nml Nml Nml Nml 0 Nml Complete Paraspinal EMG ?Side Muscle Nerve Root Ins Act Fibs Psw Comment Right Cervical Upper Rami Nml Nml Nml Right Cervical Mid Rami Nml Nml Nml Right Cervical Lower Rami Nml Nml Nml FINDINGS: Right median motor nerve showed prolonged distal latency, normal amplitude and normal conduction velocity. Right median sensory nerve showed prolonged peak latency. All other nerves tested were within normal. Concentric needle EMG was performed in selected muscles of the right upper extremity and cervical paraspinals. Study did not reveal signs of electric abnormalities as shown in the table below. IMPRESSION: 1. This is an abnormal study. 2. There is electrodiagnostic evidence for right moderate-severe median neuropathy at the wrists, consistent with carpal tunnel syndrome. 3. There is no electrodiagnostic evidence for ulnar neuropathy, brachial plexopathy, or cervical radiculopathy. Thank you for your kind referral. Deysi Ruvalcaba MD, EL Board Certified, [place] [employer] and [employer] (ABPMR) Board Certified, [place] Board [employer] Electro[employer] (ABEM) [facility]
== END 2022-11-05 14:20 | disposition home or self-care (01) ==
LOC: HO.NEURO 14:19
PROVIDERS: PCP Family Medicine; Visit Provider Family Medicine
DX: R20.0 Anesthesia of skin (principal); R20.2 Paresthesia of skin
CPT/HCPCS: 95886; 95909

== ENCOUNTER 2022-12-17 09:53 | Outpatient (AMB) | payer MEDICAID, SELFPAY ==
[2022-12-17 10:08] VITALS: BMI 38.7
--- NOTE | 2022-12-17 10:08 | MHC.OFFVIS ---
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 States she is experiencing numbness and tingling for the past 2 months and has worsen. Patient has seen her PCP who Rx'd hand brace and reports brace helps at night time. Denies past hand injections or therapy. EMG done. Allergies trazodone [TRAZODONE] Allergy (Severe, Verified 12/17/22 10:17) SEIZURE Medication List - Last Reconciled 12/17/22 by Deysi Ruvalcaba MD amlodipine 10 mg PO DAILY cholecalciferol (vitamin D3) 50 mcg PO DAILY cyclobenzaprine 10 mg PO TID PRN esomeprazole magnesium (Nexium) 40 mg PO DAILY ibuprofen 600 mg PO TID PRN mecobalamin (vitamin B12) 1,000 mcg sublingual BEDTIME methylcellulose (laxative) (Citrucel) 500 mg PO DAILY polyethylene glycol 3350 (Miralax) 17 grams PO DAILY pregabalin (Lyrica) 150 mg PO BID quetiapine (Seroquel) 50 mg PO BEDTIME sennosides (Natural Senna Laxative) 8.6 mg PO BEDTIME simethicone (Gas Relief (simethicone)) 125 mg PO TID-QID PRN tramadol 50 mg PO Q6H PRN HPI HPI Comments History of Present Illness Details Pain on wrist and elbow. 3rd and 4th fingers numb. Drops things. Bothering her for more than 6 months, before that more on and off. Treatment done so far: wrist splints at night help with pain NSAIDs but can't take half-way due to gastritis PFSH Medical History (Updated 12/17/22 @ 10:47 by Deysi Ruvalcaba MD) Carpal tunnel syndrome of right wrist Tubular adenoma Fibromyalgia History of COVID-19 Gastritis Elevated cholesterol HTN (hypertension) Asthma Surgical History Hx of colonoscopy Hx of meniscectomy of right knee History of esophagogastroduodenoscopy (EGD) Family History Mother HTN (hypertension) Brother HTN (hypertension) Social History Alcohol intake: current Alcohol intake frequency: a few times a week Alcohol type: beer Patient Tobacco Use Status: Never used Tobacco Review of Systems Const All systems reviewed & are unremarkable except as noted in HPI and below Physical Exam Vital Signs: BMI result Body Mass Index 38.7 Constitutional: Patient appears to be in no acute distress, well nourished and well developed. MSK: Inspection reveals appropriate head and neck positioning. No pain with palpation over the neck musculature. Cervical ROM was full. Spurling's sign negative. Bilateral shoulder ROM WNL. No ligamentous laxity or crepitance. No increased effusion. Hawkin's test is negative. No joint effusion noted. No deformity noted. No intrinsic hand weakness noted. No atrophy noted. Aria test right positive. Tender on right CMC joint. Carpal compression test positive right. Tinel sign negative. Mildly tender on right common extensor tendons. No tenderness or bursitis on elbow. Strength is 5/5 in all muscle groups tested. No increased tone noted. Neurological: Neurologic examination of the upper and lower extremities was nonfocal with intact sensation, muscle stretch reflexes and without focal motor deficits . Kendrick?s negative bilaterally. Gait is non-antalgic without loss of balance. Results Reviewed Results Reviewed: EMG done by me: FINDINGS: Right median motor nerve showed prolonged distal latency, normal amplitude and normal conduction velocity. Right median sensory nerve showed prolonged peak latency. All other nerves tested were within normal. Concentric needle EMG was performed in selected muscles of the right upper extremity and cervical paraspinals. Study did not reveal signs of electric abnormalities as shown in the table below. IMPRESSION: 1. This is an abnormal study. 2. There is electrodiagnostic evidence for right moderate-severe median neuropathy at the wrists, consistent with carpal tunnel syndrome. 3. There is no electrodiagnostic evidence for ulnar neuropathy, brachial plexopathy, or cervical radiculopathy. Assessment & Plan Assessment & Plan (1) Wrist pain, right: Code(s): M25.531 - Pain in right wrist (2) Carpal tunnel syndrome of right wrist: Code(s): G56.01 - Carpal tunnel syndrome, right upper limb (3) De Quervain's tenosynovitis, right: Code(s): M65.4 - Radial styloid tenosynovitis [de Quervain] (4) Right tennis elbow: Code(s): M77.11 - Lateral epicondylitis, right elbow Plan I believe the numbness is from the Carpal Tunnel Syndrome as documented in the EMG done. However the pain could be multifactorial, right de Quervain tenosynovitis, CMC joint arthritis and a secondary lateral epicondylitis. We agreed to do conservative treatment of Carpal Tunnel Syndrome 1st and also address the other issues before considering surgery. Continue wrist splints at night. Referring her to OT. X-ray of right hand/wrist today. Wear a counterforce brace on the right. We might consider injection as temporary relief. Assessment and plan discussed with patient, and patient was agreeable. All questions were answered thoroughly. Follow-up 2 months. Deysi Ruvalcaba MD, EL Board Certified, [place] [employer] and [employer] (ABPMR) Board Certified, [place] [employer] (ABEM) Orders: Orders XR hand RT min 3V Today G56.01 - Carpal tunnel syndrome, right upper limb, M25.531 - Pain in right wrist, M65.4 - Radial styloid tenosynovitis [de Quervain] OT Evaluation and Treatment Today G56.01 - Carpal tunnel syndrome, right upper limb, M25.531 - Pain in right wrist, M65.4 - Radial styloid tenosynovitis [de Quervain], M77.11 - Lateral epicondylitis, right elbow Coding Level of Care Code Est Pt Level 4 (20683) Diagnoses Wrist pain, right M25.531 Carpal tunnel syndrome of right wrist G56.01 De Quervain's tenosynovitis, right M65.4 Right tennis elbow M77.11
== END 2022-12-17 12:06 | disposition home or self-care (01) ==
PROVIDERS: PCP Family Medicine; Visit Provider Physical Medicine & Rehabilitation
DX: M25.531 Pain in right wrist (principal); G56.01 Carpal tunnel syndrome, right upper limb; M65.4 Radial styloid tenosynovitis [de Quervain]; M77.11 Lateral epicondylitis, right elbow
CPT/HCPCS: 99214

== ENCOUNTER 2022-12-17 09:53 | Outpatient (REF) | payer MEDICAID, SELFPAY ==
--- NOTE | ~2022-12-17 | XR_ITS ---
EXAMINATION: XR HAND, RIGHT CLINICAL INFORMATION: Pain COMPARISON: None available. TECHNIQUE: PA, lateral, and oblique views of the right hand. FINDINGS: No acute visible fracture or dislocation. Mild multi joint arthritic changes. 1 mm lucent focus along the radial margin of the distal radial metadiaphysis with sclerotic rim nonspecific though may reflect an osteoid osteoma. Joint spaces and alignment are otherwise maintained. Soft tissues are unremarkable. XR/XR hand RT min 3V IMPRESSION: 1. No acute visible fracture or dislocation. 2. Mild multi joint arthritic changes. 3. 1 mm lucent focus along the radial margin of the distal radial metadiaphysis with sclerotic rim nonspecific though may reflect an osteoid osteoma.
== END 2022-12-17 09:54 | disposition home or self-care (01) ==
LOC: HO.HOSX 09:53
PROVIDERS: PCP Family Medicine; Visit Provider Physical Medicine & Rehabilitation
DX: G56.01 Carpal tunnel syndrome, right upper limb (principal); M25.531 Pain in right wrist; M65.4 Radial styloid tenosynovitis [de Quervain]; M77.11 Lateral epicondylitis, right elbow
CPT/HCPCS: 73130; 99202; 99212

== ENCOUNTER 2023-03-30 15:12 | Outpatient (AMB) | payer MEDICAID, SELFPAY ==
--- NOTE | 2023-03-30 15:19 | A.OFFVIS_ITS ---
Intake Vital Signs 03/30/23 15:20 Height 5 ft 6 in Weight 240 lb BMI 38.7 Intake Visit Reasons: OV-right hand CTS discuss surgery Intake Note: oJdi a 53 year old female presents today for a follow up of right hand CTS. Patient reports that she was last seen with Dr. Lara who ordered an EMG and discussed results. She would like to discuss surgical options today. Allergies trazodone [TRAZODONE] Allergy (Severe, Verified 03/30/23 15:20) SEIZURE Medication List - Last Reconciled 03/30/23 by Ishan Wyman PA-C amlodipine 10 mg PO DAILY cholecalciferol (vitamin D3) 50 mcg PO DAILY cyclobenzaprine 10 mg PO TID PRN esomeprazole magnesium (Nexium) 40 mg PO DAILY ibuprofen 600 mg PO TID PRN mecobalamin (vitamin B12) 1,000 mcg sublingual BEDTIME methylcellulose (laxative) (Citrucel) 500 mg PO DAILY polyethylene glycol 3350 (Miralax) 17 grams PO DAILY pregabalin (Lyrica) 150 mg PO BID quetiapine (Seroquel) 50 mg PO BEDTIME sennosides (Natural Senna Laxative) 8.6 mg PO BEDTIME simethicone (Gas Relief (simethicone)) 125 mg PO TID-QID PRN tramadol 50 mg PO Q6H PRN HPI OV-right hand CTS discuss surgery HPI Details 53-year-old right hand dominant female alberto finnegan returns to the office today for a follow-up of right hand. She was seen with Dr. Lara who ordered an EMG and discussed results. She would like to discuss surgical options today. SHe states her symptoms have been present for a little under a year but have been worsening over the last 2 months. She states her symptoms are not constant. She does not have a history of diabetes. 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 [facility] Medical History (Updated 12/17/22 @ 10:47 by Deysi Ruvalcaba MD) Carpal tunnel syndrome of right wrist Tubular adenoma Fibromyalgia History of COVID-19 Gastritis Elevated cholesterol HTN (hypertension) Asthma Surgical History Hx of colonoscopy Hx of meniscectomy of right knee History of esophagogastroduodenoscopy (EGD) Family History Mother HTN (hypertension) Brother HTN (hypertension) Social History Alcohol intake: current Alcohol intake frequency: a few times a week Alcohol type: beer Patient Tobacco Use Status: Never used Tobacco Review of Systems Const All systems reviewed & are unremarkable except as noted in HPI and below Physical Exam Vital Signs: BMI result Body Mass Index 38.7 Const General: cooperative and no acute distress Orientation/consciousness: patient oriented x3 Resp Effort & Inspection: normal respiratory effort and able to speak in complete sentences Cardio Peripheral pulses: Peripheral pulses 2+ throughout Neuro General: patient oriented x3 Extrem Other: Right wrist: Normal to inspection. Tenderness over the carpal canal. Numbness and tingling over the median nerve distribution of the right hand. Able to make a full fist and fully extend all fingers. Positive Tinel's. Results Reviewed Results Reviewed: EMG/NCS 11/05/22 IMPRESSION: 1. This is an abnormal study. 2. There is electrodiagnostic evidence for right moderate-severe median neuropathy at the wrists, consistent with carpal tunnel syndrome. 3. There is no electrodiagnostic evidence for ulnar neuropathy, brachial plexopathy, or cervical radiculopathy. Assessment & Plan Assessment & Plan (1) Carpal tunnel syndrome of right wrist: Code(s): G56.01 - Carpal tunnel syndrome, right upper limb Plan We discussed options which include conservative vs operative treatment. Since the patient has been symptomatic for several months and it is impacting their daily life, the decision was made to undergo right carpal tunnel release. We discussed risk, benefits and alternatives. Risk including but not limited to infection, weakness, stiffness, ongoing numbness or tingling. The patient does understand all this and would like to proceed with right carpal tunnel release with Dr. Alcala. They will be booked accordingly. Patient Instructions: Scribed for Ishan Wyman PA-C, by Russ Harvey medical record clerk, on 03/30/2023 at 3:15 PM EST. IIshan PA-C, have personally reviewed and agree with the information entered by the scribe. Coding Level of Care Code Est Pt Level 3 (04470) Diagnoses Carpal tunnel syndrome of right wrist G56.01
[2023-03-30 15:20] VITALS: BMI 38.7
== END 2023-03-30 19:21 | disposition home or self-care (01) ==
PROVIDERS: PCP Family Medicine; Visit Provider Physician Assistant
DX: G56.01 Carpal tunnel syndrome, right upper limb (principal)
CPT/HCPCS: 99213

== ENCOUNTER → 2023-03-30 15:12 | Outpatient (BNVA) | payer MEDICAID, SELFPAY | PROVIDERS: PCP Family Medicine; Visit Provider Physician Assistant | DX: G56.01 Carpal tunnel syndrome, right upper limb (principal) | CPT/HCPCS: 99212 ==

== ENCOUNTER 2023-06-04 09:40 | Day surgery (SDC) | payer MEDICAID, SELFPAY ==
--- NOTE | 2023-06-04 09:42 | W.PM.OPN ---
Operative Note Operative Note Date of Service: 06/04/23 Narrative: Preop diagnosis: 1. Right Carpal tunnel syndrome Postop diagnosis: same Procedure: 1. Right Carpal tunnel release Surgeon: Marisel Alcala MD Anesthesia: local block using 1% lidocaine with epinephrine Findings: Thickened transverse carpal ligament. EBL: Less than 5 mL Specimens: None Complications: None Disposition: Brought to recovery room in stable condition Plan: Follow-up for 10-14 days for wound check and suture removal Indications: The patient is 53 years old, with right carpal tunnel syndrome that has been unresponsive to nonoperative management. The risks and benefits of operative treatment including but not limited to risk of damage to blood vessels, nerves, tendons, infection, persistent pain, persistent symptoms, or possible need for additional surgery were discussed with the patient and the patient wishes to proceed with surgery. Procedure: Once consent was obtained a local block was performed using a combination of 1% lidocaine with epinephrine. The patient was then brought back to the operating suite and placed on the operative table in supine position. The right upper extremity was prepped and draped in a standard surgical fashion. Once assured that we had a good block, a 2.0 cm longitudinal incision was made centered over the carpal tunnel. The incision was made through the skin to the subcutaneous tissues using a #15 blade. Dissection was made down to the level of the transverse carpal ligament with care being taken to protect the palmar cutaneous nerve. Once the transverse carpal ligament was clearly visualized, a longitudinal incision was made in the transverse carpal ligament 1st using a #15 blade, then using tenotomy scissors under direct visualization. Care was taken to look for and protect the motor branch of the median nerve when seen in this area. Once satisfied with our carpal tunnel release the wound was copiously irrigated with normal saline and hemostasis was obtained with a brief period of local pressure. The skin edges were reapproximated with some 5.0 nylon suture material and a sterile dressing was applied. The patient appears to have tolerated the procedure well and with no complications. All digits were well vascularized at the conclusion of the case.
[2023-06-04 09:57] VITALS: BP 118/71; PULSE 67; RESP 18; TEMP 36.2; O2SAT 96; BMI 34.6
--- NOTE | 2023-06-04 10:43 | MHC.SHP ---
Pre-Procedural Eval Section A - 24 Hr Update-Section A only Date of Service: 06/04/23 The patient is an INPATIENT: No Changes since office visit: No Cold of Flu in the past 2 weeks, No New Medical Problems, No Changes in Medication and No Patient answered all questions The patient has been examined within 24 hours of the surgical procedure. The History & Physical has been completed within 30 days and I have reviewed it.: Yes Section B - Complete if H&P > 30 days Chief Complaint: Carpal tunnel syndrome, right upper limb Allergies: Allergies Allergy/AdvReac Type Severity Reaction Status Date / Time trazodone [TRAZODONE] Allergy Severe SEIZURE Verified 03/30/23 15:20 Exam Exam Comment: Right carpal tunnel syndrome, intermittent but daily Plan Diagnosis/Plan: Unchanged I have reviewed the history and physical and performed a pertinent physical examination on my patient. No changes have occurred unless specified. Time Spent With Patient Time: Total time managing care of this patient today ____ minutes.
[2023-06-04 12:50] VITALS: BP 139/74; PULSE 75; RESP 16; O2SAT 98
[2023-06-04 14:57] VITALS: BP 139/74; PULSE 75; RESP 16; O2SAT 98
== END 2023-06-04 11:25 | disposition home or self-care (01) ==
PROVIDERS: PCP Family Medicine; Visit Provider Orthopaedic Surgery
PROC: (CPT 64721; principal; 2023-06-04 12:10)
DX: G56.01 Carpal tunnel syndrome, right upper limb (principal); M79.7 Fibromyalgia; I10 Essential (primary) hypertension; E78.00 Pure hypercholesterolemia, unspecified; J45.909 Unspecified asthma, uncomplicated; Z86.16 Personal history of COVID-19; Z79.899 Other long term (current) drug therapy; Z79.1 Long term (current) use of non-steroidal anti-inflammatories (NSAID); Z88.8 Allergy status to other drugs, medicaments and biological substances
CPT/HCPCS: 64721; J0171

== ENCOUNTER → 2023-06-04 09:40 | Outpatient (BNV) | payer MEDICAID, SELFPAY | PROVIDERS: PCP Family Medicine; Visit Provider Orthopaedic Surgery | DX: G56.01 Carpal tunnel syndrome, right upper limb (principal) | CPT/HCPCS: 64721 ==

== ENCOUNTER 2023-06-17 14:22 | Outpatient (AMB) | payer MEDICAID, SELFPAY ==
[2023-06-17 14:36] VITALS: BMI 34.6
--- NOTE | 2023-06-17 14:36 | A.OFFVIS_ITS ---
Intake Vital Signs 06/17/23 14:36 Height 5 ft 7 in Weight 221 lb BMI 34.6 Intake Visit Reasons: PO-Rt CTS 06/04/23 Intake Note: Jodi 53 yr old female presents today for her PO visit for her right hand CTR 06/04/[address] Alcala. States symptoms haven't changed yet, however patient is doing well. She communicates that she still feels numb on the volar aspect of the wrist where the incision site is. Sutures removed and steri strips applied. Allergies trazodone [TRAZODONE] Allergy (Severe, Verified 06/17/23 14:36) SEIZURE HPI PO-Rt CTS 06/04/23 HPI Details Jodi is a 53 year old right hand dominant woman who presents S/P right carpal tunnel release, DOS: 06/04/23. She says she is doing well and has had good improvement in her sensation. She noticed that she does have some numbness right around the incision. [facility] Medical History (Updated 12/17/22 @ 10:47 by Deysi Ruvalcaba MD) Carpal tunnel syndrome of right wrist Tubular adenoma Fibromyalgia History of COVID-19 Gastritis Elevated cholesterol HTN (hypertension) Asthma Surgical History Hx of colonoscopy Hx of meniscectomy of right knee History of esophagogastroduodenoscopy (EGD) Family History Mother HTN (hypertension) Brother HTN (hypertension) Social History Alcohol intake: current Alcohol intake frequency: a few times a week Alcohol type: beer Patient Tobacco Use Status: Never used Tobacco Review of Systems Const All systems reviewed & are unremarkable except as noted in HPI and below Physical Exam Vital Signs: BMI result Body Mass Index 34.6 Const General: no acute distress and alert Orientation/consciousness: patient oriented x3 Neuro General: patient oriented x3 Extrem Other: The patient was alert oriented and in no acute distress The incision is healing well with no erythema drainage or evidence of infection. Sutures removed and Steri-Strips applied She can make a fist and extend all her digits Not normal sensation in the median nerve distribution Cap refill is brisk Nerve Conduction Study: IMPRESSION: 1. This is an abnormal study. 2. There is electrodiagnostic evidence for right moderate-severe median neuropathy at the wrists, consistent with carpal tunnel syndrome. 3. There is no electrodiagnostic evidence for ulnar neuropathy, brachial plexopathy, or cervical radiculopathy. Deysi Ruvalcaba MD, EL 11/05/22 Psych Appearance: grossly normal Affect: normal affect Attitude: cooperative Assessment & Plan Assessment & Plan (1) Carpal tunnel syndrome of right wrist: Code(s): G56.01 - Carpal tunnel syndrome, right upper limb Plan Assessment & Plan: 1. Right carpal tunnel syndrome, S/P release DOS: 06/04/23 Pre-operative symptoms intermittent but daily Now with normal sensation and good resolution of her nighttime symptoms The patient appears to be doing well post-operatively I educated her about the post-operative course I explained the signs and symptoms of infection, if the patient develops any new or worsening erythema, drainage, pain, or warmth they should contact the clinic or attend the ED. I discussed activity modifications, she is to lift nothing heavier than a cellphone for the next two weeks She will perform gentle ROM exercises at home She should avoid any underwater activities for the next 5 days She should gently massage about the incision site to reduce the risk of hypersensitivity She can follow up prn Scribed for Marisel Alcala MD by Bartolome Mobley, medical record librarians teacher, on 06/17/23 at 2:45 PM, EST. Coding Level of Care Code Global (25596) Diagnoses Carpal tunnel syndrome of right wrist G56.01
== END 2023-06-17 15:15 | disposition home or self-care (01) ==
PROVIDERS: PCP Family Medicine; Visit Provider Orthopaedic Surgery
DX: G56.01 Carpal tunnel syndrome, right upper limb (principal)
CPT/HCPCS: 99024

== ENCOUNTER → 2023-06-17 14:22 | Outpatient (BNVA) | payer MEDICAID, SELFPAY | PROVIDERS: PCP Family Medicine; Visit Provider Orthopaedic Surgery | DX: G56.01 Carpal tunnel syndrome, right upper limb (principal) | CPT/HCPCS: 99212 ==

== ENCOUNTER 2023-07-09 09:15 | Outpatient (REF) | payer MEDICAID, SELFPAY ==
--- NOTE | ~2023-07-09 | MM_ITS ---
EXAMINATION: MM SCREENING DIGITAL BREAST TOMOSYNTHESIS, BILATERAL CLINICAL INFORMATION: Screening. Asymptomatic. COMPARISON: Mammography: 02/26/2021, 12/16/2018, 02/19/2015, 08/07/2014, 07/09/2014; right breast ultrasound 08/07/2014. TECHNIQUE: Digital breast tomosynthesis is performed in both the craniocaudal and mediolateral oblique views along with computer-aided detection (CAD). Synthesized 2D images are generated from the tomosynthesis. FINDINGS: There are scattered areas of fibroglandular density (ACR BI-RADS breast composition Category b). Stable intramammary lymph node right breast 12:00 axis, anterior one third. There are no suspicious masses, suspicious grouped calcifications, or areas of architectural distortion in either breast. The parenchymal pattern is stable from prior exams. There are no suspicious skin or axillary abnormalities. MM/MM tomosynthesis screening BI IMPRESSION: No mammographic evidence of malignancy. Significant interval change. ASSESSMENT: BI-RADS BI-RADS 2 - Benign Findings RECOMMENDATION: Routine annual mammography screening. 1 year F/U This examination should not preclude the clinical evaluation of a suspicious palpable abnormality. This patient's information was entered into a reminder system with a target due date for their next mammogram.
== END 2023-07-09 09:16 | disposition home or self-care (01) ==
LOC: HO.MAMMO 09:15
PROVIDERS: PCP Family Medicine; Visit Provider Family Medicine
DX: Z12.31 Encounter for screening mammogram for malignant neoplasm of breast (principal)
CPT/HCPCS: 77063; 77067

== ENCOUNTER → 2023-07-09 10:15 | Outpatient (BNV) | payer MEDICAID, SELFPAY | PROVIDERS: PCP Family Medicine; Visit Provider Radiology Diagnostic Radiology | DX: Z12.31 Encounter for screening mammogram for malignant neoplasm of breast (principal) | CPT/HCPCS: 77063; 77067 ==

== ENCOUNTER 2023-07-13 08:28 | Outpatient (REF) | payer MEDICAID, SELFPAY ==
[2023-07-13 11:27] LABS: MANUAL DIFF FLAG NO
[2023-07-13 11:36] LABS: Basophils Absolute Auto 0.1 X10*3/uL (0.0-0.2); Basophils Percent Auto 0.8 % (0-2); Eosinophils Absolute Auto 0.2 X10*3/uL (0.0-0.4); Eosinophils Percent Auto 2.9 % (0-4); Hematocrit 42.7 % (37.0-47.0); Imm Gran Abs Auto 0.01 X10*3/uL (0.00-0.03); Imm Gran Pct Auto 0.1 % (0.0-0.4); Lymphocytes Absolute Auto 3.2 X10*3/uL (1.2-4.9); Lymphocytes Percent Auto 40.4 % (20-40); Mean Corpuscular HGB Conc 32.8 g/dl (31.0-35.0); Mean Corpuscular Volume 88.6 fL (80.0-98.0); Mean Platelet Volume 12.7 fL (9.4-12.3); Monocytes Absolute Auto 0.7 X10*3/uL (0.1-1.2); Monocytes Percent Auto 8.3 % (2-11); Neutrophils Absolute Auto 3.7 x10*3/uL (2.0-8.3); Neutrophils Percent Auto 47.5 % (45-73); Platelet Count 254 X10*3/uL (160-400); Red Blood Count 4.82 X10*6/uL (4.20-5.50); Red Cell Distribution Width 14.4 % (11.0-16.0); White Blood Count 7.8 X10*3/uL (4.8-10.8)
[2023-07-13 11:48] LABS: B Type Natriuretic Peptide 46 pg/mL (<100)
[2023-07-13 11:54] LABS: Alanine Aminotransferase 16 U/L (0-31); Albumin Level 3.8 g/dL (3.5-5.0); Alkaline Phosphatase 86 U/L (39-117); Anion Gap 12 (12-20); Aspartate Amino Transferase 25 U/L (5-31); Bilirubin Direct < 0.2 mg/dL (0.0-0.5); Bilirubin Total 0.2 mg/dL (0.0-1.0); Blood Urea Nitrogen 9 mg/dL (9-16); Calcium 9.8 mg/dL (8.4-10.2); Carbon Dioxide 25 mmol/L (22-29); Chloride 110 mmol/L (96-108); Cholesterol 245 mg/dL (<200); Estimated Glomerular Filt Rate > 60; Glucose Random 110 mg/dL (60-115); HDL Cholesterol 35 mg/dL (>40); LDL Cholesterol Calculated 164 mg/dL (<100); Sodium 143 mmol/L (135-145); Total Protein 7.2 g/dL (6.5-8.0); Triglycerides 231 mg/dL (<150)
[2023-07-13 12:11] LABS: TSH reflex Free T4 1.67 uIU/mL (0.32-4.0)
[2023-07-13 12:19] LABS: Creatinine Urine 32.94 mg/dL; Microalbumin Urine < 5.0 mg/L
== END 2023-07-13 08:29 | disposition home or self-care (01) ==
LOC: HO.HHCL 08:28
PROVIDERS: Visit Provider Family Medicine
DX: E55.9 Vitamin D deficiency, unspecified (principal); R60.0 Localized edema; E78.5 Hyperlipidemia, unspecified
CPT/HCPCS: 36415; 80048; 80061; 80076; 82043; 82306; 82570; 83880; 84443; 85025

== ENCOUNTER 2023-08-28 09:40 | Outpatient (AMB) | payer MEDICAID, SELFPAY ==
--- NOTE | 2023-08-28 07:43 | A.OFFVIS_ITS ---
Intake Visit Reasons: LDCT SD Allergies trazodone [TRAZODONE] Allergy (Severe, Verified 06/17/23 14:36) SEIZURE HPI HPI LDCT SD: Details: Initial visit for this 53yo smoker with a 22PYH. Patient has been smoking since age 16 for 37 years at 1/2-3/4ppd. . Reports marijuana use. Denies second hand smoke exposure. Denies exposure to chemicals or substances like asbestos. . Denies known family history of lung cancer. Denies personal history of cancers. Denies chest CT in last year. . Denies recent travel outside the [place]. Denies recent respiratory illness or recent hospitalization for respiratory issues. Reports testing positive for COVID. Admits receiving COVID Vaccine. x3. . Denies fever, chills, new/worsening cough, hemoptysis, hoarseness or dysphagia. Denies significant chest pain, significant dyspnea or unintentional weight loss. Patient Lung Cancer Screening Questionnaire reviewed with patient by provider. . Shared Decision Making Completed. Patient meets criteria. Discussed in detail with patient, the risk vs benefit of LDCT screening. Patient consents to proceed with scan. Discussed smoking cessation. [facility] Medical History (Updated 08/28/23 @ 09:53 by Kisha Green PA-C) Fibromyalgia HTN (hypertension) Elevated cholesterol Asthma Nicotine dependence, cigarettes, uncomplicated History of COVID-19 Gastritis Tubular adenoma of colon Carpal tunnel syndrome of right wrist Surgical History (Updated 08/25/23 @ 11:55 by Kisha Green PA-C) History of carpal tunnel surgery of right wrist History of colonoscopy History of esophagogastroduodenoscopy (EGD) History of meniscectomy of right knee History of bilateral salpingectomy Family History Mother HTN (hypertension) Brother HTN (hypertension) Social History (Updated 08/28/23 @ 09:54 by Kisha Green PA-C) Alcohol intake: current Alcohol intake frequency: a few times a week Alcohol type: beer Patient Tobacco Use Status: Current everyday Tobacco user Years Smoked: (onset 16yo, 1/2-3/4ppd x 37yrs - 22pyh) Assessment & Plan Assessment & Plan (1) Nicotine dependence, cigarettes, uncomplicated: Comment: (onset 16yo, 1/2-3/4ppd x 37yrs - 22pyh) Code(s): F17.210 - Nicotine dependence, cigarettes, uncomplicated Category: Medical Plan: - SDM visit completed today in office. - Patient meets criteria for LDCT for lung cancer screening purposes and is asymptomatic. - Smoking cessation counseling offered. Patients can always call [phone]. - Will arrange for a LDCT scan of the chest for screening purposes at [facility]. - Risks, benefits, and alternatives were discussed in detail and the patient agrees to proceed. - Risks discussed include but are not limited to: radiation exposure, anxiety during testing and while awaiting results, false negatives, false positives and possibility of additional intervention such as further imaging or surgical procedures for benign disease. - Benefits are obviously detection of lung cancer at an early stage which can lead to improved outcomes. - Discussed the importance of screening program compliance with adherence to yearly LDCT scan as scheduled - or sooner interval scans for personalized screening regimen. - Discussed follow up plan. Our office will send a letter discussing results and if needed set up phone call and office visit based on CT findings. - Patient educated on results categorization and the management decisions for suspicious findings potentially found on the screening LDCT scan. Any patient with a Lung RADS score of 3 or 4 will be reviewed by a multidisciplinary team at [facility] to form a plan of action in regards to scan findings. - If further work up is warranted for a suspicious lung finding this will be followed by the Lung Cancer Screening program in conjunction with the Thoracic Surgery Department at [facility]. - A copy of the office note and LDCT will be sent to the patient's PCP - as well as documentation on any associated further plans of care. - Incidental findings on LDCT are the PCP's responsibility. These findings are indicated with an S finding on the LDCT Assessment. A note discussing the findings will be sent to the PCP who is then responsible for further management. - All questions answered.? Coding Level of Care Code Lung Cancer Screening G0296 Diagnoses Nicotine dependence, cigarettes, uncomplicated F17.210
== END 2023-08-28 10:00 | disposition home or self-care (01) ==
PROVIDERS: PCP Family Medicine; Referring Provider Family Medicine; Visit Provider Physician Assistant Medical
DX: F17.210 Nicotine dependence, cigarettes, uncomplicated (principal)
CPT/HCPCS: G0296

== ENCOUNTER → 2023-08-28 09:40 | Outpatient (BNVA) | payer MEDICAID, SELFPAY | PROVIDERS: PCP Family Medicine; Visit Provider Physician Assistant Medical | DX: F17.210 Nicotine dependence, cigarettes, uncomplicated (principal); Z12.2 Encounter for screening for malignant neoplasm of respiratory organs | CPT/HCPCS: G0296 ==

== ENCOUNTER 2023-08-28 10:09 | Outpatient (REF) | payer MEDICAID, SELFPAY ==
--- NOTE | ~2023-08-28 | CT_ITS ---
EXAMINATION: CT LOW-DOSE SCREENING CHEST WITHOUT CONTRAST CLINICAL INFORMATION: Nicotine dependence, cigarettes, uncomplicated. The patient is a current smoker with a 29 pack-year history of smoking. COMPARISON: Chest x-ray 09/14/2018. TECHNIQUE: Multidetector volumetric CT imaging of the chest is performed on a Siemens SOMATOM Definition scanner without contrast using low dose technique. Additional 2D coronal and sagittal reformatted images and axial 3D maximum intensity projection (MIP) images are generated on the CT workstation. This CT examination was performed using dose optimization techniques as appropriate, variously including the following: *Automated exposure control *Adjustment of mA and/or kV according to patient size (this includes techniques or standardized protocols for targeted exams where dose is matched to indication/reason for exam; i.e. extremities or head) *Use of iterative reconstruction technique TOTAL EXAM DLP: 58 mGy-cm. CTDIvol: 1.85 mGy. FINDINGS: PULMONARY NODULES: No suspicious pulmonary nodules. There is a tiny punctate left lower lobe calcified granuloma. There is a 3 mm perifissural nodule in the right lower lobe (5:197) LUNGS: Lungs bilaterally symmetrically expanded. No focal lung nodule or mass. No effusion or pneumothorax. Central airways patent. MEDIASTINUM: No mediastinal, hilar or axillary adenopathy or free fluid collection. There is a calcified left hilar lymph node present. CORONARY ARTERY CALCIFICATION: None visualized on this study. THYROID GLAND: Unremarkable to the extent seen. CARDIOVASCULAR STRUCTURES: Aortic and heart size normal. No pericardial effusion. CHEST WALL/AXILLA: Unremarkable. UPPER ABDOMEN: Included portions of the solid organs in the upper abdomen unremarkable on noncontrast imaging. OSSEOUS STRUCTURES: No suspicious focal findings. CT/CT lung screening IMPRESSION: 1. No evidence of pulmonary malignancy. 2. Evidence of prior granulomatous disease. 3. Incidental findings (s category): No incidental findings. ASSESSMENT: Lung-RADS Category 2: Benign appearance or behavior of nodules. N/A RECOMMENDATION: Continued routine annual low-dose CT lung screening in 1 year is recommended. An order for CT CHEST LOW DOSE CANCER SCREENING ([id number]) can be placed.
== END 2023-08-28 10:10 | disposition home or self-care (01) ==
LOC: HO.CT 10:09
PROVIDERS: PCP Family Medicine; Visit Provider Physician Assistant Medical
DX: Z12.2 Encounter for screening for malignant neoplasm of respiratory organs (principal); F17.210 Nicotine dependence, cigarettes, uncomplicated
CPT/HCPCS: 71271; G0296

== ENCOUNTER 2023-12-28 09:51 | Outpatient (REF) | payer MEDICAID, SELFPAY ==
[2023-12-28 12:33] LABS: Alanine Aminotransferase 25 U/L (0-31); Alkaline Phosphatase 93 U/L (39-117); Aspartate Amino Transferase 29 U/L (5-31); Bilirubin Direct 0.1 mg/dL (0.0-0.5); Bilirubin Total 0.4 mg/dL (0.0-1.0); Cholesterol 120 mg/dL (<200); HDL Cholesterol 28 mg/dL (>40); LDL Cholesterol Calculated 66 mg/dL (<100); Total Protein 7.2 g/dL (6.5-8.0); Triglycerides 134 mg/dL (<150)
== END 2023-12-28 09:52 | disposition home or self-care (01) ==
LOC: HO.HHCL 09:51
PROVIDERS: Visit Provider Family Medicine
DX: E78.5 Hyperlipidemia, unspecified (principal)
CPT/HCPCS: 36415; 80061; 80076

== ENCOUNTER 2024-01-27 17:59 | Outpatient (REF) | payer MEDICAID, SELFPAY | END 2024-01-27 18:00 | disposition home or self-care (01) | LOC: HO.HHCLNP 17:59 | PROVIDERS: Visit Provider Student in an Organized Health Care Education/Training Program | DX: R39.9 Unspecified symptoms and signs involving the genitourinary system (principal) | CPT/HCPCS: 87086 ==

== ENCOUNTER 2024-02-20 22:10 | Emergency (ER) | payer MEDICAID, SELFPAY ==
--- NOTE | ~2024-02-20 | CT_ITS ---
EXAMINATION: CT ABDOMEN AND PELVIS WITHOUT CONTRAST CLINICAL INFORMATION: Abdominal pain, nausea and leukocytosis. COMPARISON: CT abdomen and pelvis dated 08/26/2018. TECHNIQUE: Multidetector volumetric imaging was performed from the superior aspect of the liver through the pubic symphysis. Sagittal and coronal reformatted images were obtained on the technologist's workstation. This CT examination was performed using dose optimization techniques as appropriate, variously including the following: *Automated exposure control *Adjustment of mA and/or kV according to patient size (this includes techniques or standardized protocols for targeted exams where dose is matched to indication/reason for exam; i.e. extremities or head) *Use of iterative reconstruction technique DLP: 7:30 mGy-cm FINDINGS: LUNG BASES: The visualized lung bases are unremarkable. LIVER, GALLBLADDER, AND BILIARY TREE: The liver is normal in size, shape, and attenuation. No focal hepatic lesion or biliary ductal dilatation is present. The gallbladder is unremarkable with no evidence of radiopaque gallstones, gallbladder wall thickening, or obvious pericholecystic inflammatory changes. PANCREAS: Unremarkable. SPLEEN: Unremarkable. ADRENAL GLANDS: Unremarkable. KIDNEYS AND URETERS: The kidneys are normal in size, shape, and attenuation. No hydronephrosis, hydroureter, or calculi seen. No perinephric stranding. BLADDER: Unremarkable. GASTROINTESTINAL TRACT: There is a fat halo sign of the ascending colon and the hepatic flexure, which can be associated with inflammatory bowel disease. There is no pericolonic fat stranding or pericolic abscess to suggest that this is active. There is no obstruction, free intraperitoneal air or abscess. No diverticulosis or diverticulitis is seen. The vermiform appendix is unremarkable. ABDOMINAL WALL: No significant hernia is appreciated. LYMPH NODES: There are shotty, nonpathologically enlarged mesenteric, para-aortic and iliac chain lymph nodes. There is mild fat stranding of the mesenteric root ( michelle mesentery ; 3:49). No sizable abdominopelvic lymphadenopathy is seen. VASCULAR: There is mild aortoiliac atherosclerotic calcification. No abdominal aortic aneurysm is seen. PELVIC VISCERA: The uterus and adnexa are unremarkable. OSSEOUS STRUCTURES: There is multi-level thoracolumbar endplate arthropathy. No acute or aggressive osseous finding is noted. CT/CT abdomen pelvis wo IV con IMPRESSION: 1. There is a fat halo sign of the ascending colon, which can be seen associated with inflammatory bowel disease. There is no paracolic fat stranding or abscess to suggest this is active. 2. Subtle fat stranding of the central mesentery is seen, with nonpathologically enlarged mesenteric lymph nodes, a michelle mesentery appearance. This has a broad differential which includes mesenteric adenitis. It has been described with lymphoma although typically there is a history of lymphoma or evidence of lymphadenopathy elsewhere, not seen on this patient. In the absence of symptoms, it is of uncertain etiology or clinical significance. If there is continued clinical concern, a follow-up CT scan could be obtained in 3-6 months. 3. No bowel obstruction, free intraperitoneal air or abscess is seen. There is no appendicitis or colitis. 4. No urinary calculus or obstruction is seen. 5. There is no abdominopelvic mass or ascites. 6. There are degenerative changes of the spine, without aggressive osseous lesion. Fleischner guidelines were followed. Electronically signed by: Cosme Bishop MD 02/21/2024 12:29 AM MIRIAN
[2024-02-20 22:16] VITALS: BP 176/116; PULSE 97; O2SAT 99
[2024-02-20 22:19] VITALS: PULSE 83; RESP 18; TEMP 36.6; O2SAT 94; BMI 35.7
[2024-02-20 22:24] VITALS: BP 176/108; PULSE 81; RESP 18
[2024-02-20 22:49] LABS: MANUAL DIFF FLAG NO
[2024-02-20 22:59] LABS: Anion Gap 16 (12-20); Blood Urea Nitrogen 10 mg/dL (9-16); Calcium 9.4 mg/dL (8.4-10.2); Carbon Dioxide 22 mmol/L (22-29); Chloride 107 mmol/L (96-108); Creatinine Clr Calc Pharmacy 91.4; Estimated Glomerular Filt Rate > 60; Glucose Random 162 mg/dL (60-115); Potassium 3.4 mmol/L (3.3-5.1); Sodium 142 mmol/L (135-145)
[2024-02-20 23:00] LABS: Basophils Absolute Auto 0.1 X10*3/uL (0.0-0.2); Basophils Percent Auto 0.3 % (0-2); Eosinophils Absolute Auto 0.1 X10*3/uL (0.0-0.4); Eosinophils Percent Auto 0.4 % (0-4); Hematocrit 44.2 % (37.0-47.0); Hemoglobin 14.7 g/dl (12.0-16.0); Imm Gran Abs Auto 0.16 X10*3/uL (0.00-0.03); Lymphocytes Absolute Auto 3.4 X10*3/uL (1.2-4.9); Lymphocytes Percent Auto 20.6 % (20-40); Mean Corpuscular HGB Conc 33.3 g/dl (31.0-35.0); Mean Corpuscular Hemoglobin 28.7 pg (27.0-33.0); Mean Corpuscular Volume 86.3 fL (80.0-98.0); Mean Platelet Volume 12.5 fL (9.4-12.3); Monocytes Absolute Auto 0.9 X10*3/uL (0.1-1.2); Monocytes Percent Auto 5.6 % (2-11); Neutrophils Absolute Auto 11.9 x10*3/uL (2.0-8.3); Neutrophils Percent Auto 72.1 % (45-73); Platelet Count 222 X10*3/uL (160-400); Red Blood Count 5.12 X10*6/uL (4.20-5.50); Red Cell Distribution Width 14.1 % (11.0-16.0); White Blood Count 16.5 X10*3/uL (4.8-10.8)
--- NOTE | 2024-02-20 23:04 | ED.NAVMDI ---
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 Rosa HPI Narrative: 54-year-old female came in for evaluation of nausea, vomiting, and nonbloody watery diarrhea with abdominal pain shortly after ate pizza for lunch today. No other sick contacts, no recent travel, no recent use of antibiotic patient is complaining mostly of epigastric pain with nausea and vomiting. Related Data Home Medications ?Medication ?Instructions ?Recorded ?Confirmed amlodipine 10 mg tablet 10 mg PO DAILY 03/26/21 06/04/23 cholecalciferol (vitamin D3) 50 50 mcg PO DAILY 03/26/21 06/04/23 mcg (2,000 unit) capsule mecobalamin (vitamin B12) 1,000 1,000 mcg sublingual BEDTIME 03/26/21 06/04/23 mcg disintegrating tablet,sublingual pregabalin 150 mg capsule (Lyrica) 150 mg PO BID 03/26/21 06/04/23 quetiapine 50 mg tablet (Seroquel) 50 mg PO BEDTIME 03/26/21 06/04/23 Previous Rx's ?Medication ?Instructions ?Recorded sennosides 8.6 mg tablet (Natural 8.6 mg PO BEDTIME constipation #30 07/24/21 Senna Laxative) tabs methylcellulose (laxative) 500 mg 500 mg PO DAILY #30 tabs 10/04/21 tablet (Citrucel) simethicone 125 mg capsule (Gas 125 mg PO TID-QID PRN abdominal 04/21/22 Relief (simethicone)) distention #120 caps tramadol 50 mg tablet 50 mg PO Q6H PRN pain #20 tabs 04/30/22 polyethylene glycol 3350 17 17 g PO DAILY #510 grams 08/05/22 gram/dose oral powder (Miralax) cyclobenzaprine 10 mg tablet 10 mg PO TID PRN muscle spasm #15 08/13/22 tabs ibuprofen 600 mg tablet 600 mg PO TID PRN pain #15 tabs 08/13/22 esomeprazole magnesium 40 mg 40 mg PO DAILY #30 caps 10/06/22 capsule,delayed release (Nexium) oxycodone-acetaminophen 5 mg-325 1 tab PO Q6H PRN pain #5 tabs 06/04/23 mg tablet Allergies Allergy/AdvReac Type Severity Reaction Status Date / Time trazodone [TRAZODONE] Allergy Severe SEIZURE Verified 02/20/24 22:20 Review of Systems Review of Systems: All other systems are reviewed and are negative Constitutional: Reports as per HPI and Reports no additional constitutional complaints Eyes: Reports as per HPI and Reports no additional eye complaints Reports system reviewed and no additional complaints, except as documented Cardiovascular: Reports as per HPI and Reports no additional cardiovascular complaints Respiratory: Reports as per HPI and Reports no additional respiratory complaints Gastrointestinal: Reports as per HPI and Reports no additional gastrointestinal complaints Genitourinary: Reports no additional female genitourinary complaints Musculoskeletal: Reports no additional musculoskeletal complaints Skin/Breast: Reports system reviewed and no additional complaints, except as docu Psychiatric: Reports no additional psychiatric complaints Endocrine: Reports no additional endocrine complaints Hematologic/Lymphatic: Reports no additional hematologic/lymphatic complaints Allergic/Immunologic: Reports no additional allergic/immunologic complaints Reports system reviewed and no additional complaints, except as documented and Reports Abnormal speech present [facility] Past Medical History Medical History Fibromyalgia HTN (hypertension) Elevated cholesterol Asthma Nicotine dependence, cigarettes, uncomplicated History of COVID-19 Gastritis Tubular adenoma of colon Carpal tunnel syndrome of right wrist Surgical History History of carpal tunnel surgery of right wrist History of colonoscopy History of esophagogastroduodenoscopy (EGD) History of meniscectomy of right knee History of bilateral salpingectomy Family History Family History Mother HTN (hypertension) Brother HTN (hypertension) Social History Social History Alcohol intake: current Alcohol intake frequency: a few times a week Alcohol type: beer Patient Tobacco Use Status: Current everyday Tobacco user Years Smoked: (onset 16yo, 1/2-3/4ppd x 37yrs - 22pyh) Advance Directives: No Advance Directives Information Provided: No Physical Exam Vital Signs: Vital Signs: Last Vital Signs Temp 98.9 F 02/21/24 00:18 Pulse 90 02/21/24 00:18 Resp 20 02/21/24 00:18 BP 146/82 H 02/21/24 00:18 Pulse Ox 94 02/21/24 00:18 O2 Del Method Room Air 02/21/24 00:18 BMI result Body Mass Index 35.7 Vital signs have been reviewed and appear to be correct. Blood pressure elevated. Heart rate normal. Respiratory rate normal. Temperature normal. Oxygen saturation normal. Appearance: Alert. Oriented X3. No acute distress. Head: Normal external exam. Normocephalic. Atraumatic. No Ashley signs noted. No raccoon eyes noted Eyes: PERRLA. EOMI. Conjunctiva and sclera normal. Eyelids normal. ENT: TM's Normal. Pharynx normal. Uvula midline. Moist mucous membranes. No trismus noted. No drooling noted. No muffled voice noted. Neck: Normal inspection. Neck supple. FROM. No adenopathy. Thyroid Normal. No meningeal signs. No neck mass noted. CVS: Normal heart rate and rhythm. Heart sound normal. No murmurs noted. Pulses normal throughout. Respiratory: No respiratory distress. Painless inspiration. Breath sounds normal. No wheezes/rales/rhonchi noted. Chest nontender. No accessory muscle usage noted or decreased air movement noted. Abdomen: Soft and nontender. Bowel sounds normal in all 4 quadrants. No distention noted. No organomegaly noted. No visible injury noted. Back: No CVA tenderness. Full range of motion noted. Skin: Skin warm and dry. Normal skin color. Normal skin turgor. No rashes/lesions/lacerations noted. Extremities: No lower extremity edema. Extremities exhibit normal range of motion. Extremities nontender. Neuro: Oriented X 3. Cranial nerve exam: II-XII are grossly intact No motor deficit. No sensory deficit. Reflexes normal. Course Reevaluation(s) Reevaluation #1: A 54-year-old female s/p gastroenteritis. Patient feels better with IV hydration, improvement of patient's symptoms and able to tolerate p.o. intake no abdominal pain or tenderness. CT of the abdomen and pelvis suggesting Time: 01:07 Medications Administered Discontinued Medications Generic Name Dose Route Start Last Admin Trade Name Freq PRN Reason Stop Dose Admin Al Hydroxide/Mg Hydroxide 30 ml 02/20/24 23:00 02/20/24 23:52 Magnesium Hydrox/Alum Hydrox 30 Ml Oral.Susp PO 02/20/24 23:01 30 ml ONCE ONE Administration Famotidine 20 mg 02/20/24 23:00 02/20/24 23:19 Famotidine/Pf 20 Mg/2 Ml Vial IVPUSH 02/20/24 23:01 20 mg ONCE ONE Administration Sodium Chloride 1,000 mls @ 999 mls/hr 02/20/24 23:00 02/20/24 23:19 Ns IV 02/21/24 00:00 999 mls/hr .Q1H1M ONE Administration Loperamide HCl 2 mg 02/20/24 23:00 02/20/24 23:52 Loperamide Hcl 2 Mg Capsule PO 02/20/24 23:01 2 mg ONCE ONE Administration Ondansetron HCl 4 mg 02/20/24 23:00 02/20/24 23:19 Ondansetron Hcl 4 Mg/2 Ml Vial IVPUSH 02/20/24 23:01 4 mg ONCE ONE Administration Medical Decision Making Differential Diagnosis Differential Diagnoses: The differential diagnosis associated with the presentation includes ( Gastroenteritis, food poisoning, gastritis, electrolyte derangement, dehydration, severe anemia.) Admission/Observation Consideration of admission/observation: Escalation of care including admission/observation considered Lab Data MDM Lab Attestation statement: I reviewed the patient's lab results. 02/20/24 22:43 02/20/24 22:43 Labs: Lab Results 02/20/24 Range/Units 22:43 WBC 16.5 H (4.8-10.8) X10*3/uL RBC 5.12 (4.20-5.50) X10*6/uL Hgb 14.7 (12.0-16.0) g/dl Hct 44.2 (37.0-47.0) % MCV 86.3 (80.0-98.0) fL MCH 28.7 (27.0-33.0) pg MCHC 33.3 (31.0-35.0) g/dl RDW 14.1 (11.0-16.0) % Plt Count 222 (160-400) X10*3/uL MPV 12.5 H (9.4-12.3) fL Immature Gran % (Auto) 1.0 H (0.0-0.4) % Neut % (Auto) 72.1 (45-73) % Lymph % (Auto) 20.6 (20-40) % [place] % (Auto) 5.6 (2-11) % Eos % (Auto) 0.4 (0-4) % Baso % (Auto) 0.3 (0-2) % Lymph # (Auto) 3.4 (1.2-4.9) X10*3/uL [place] # (Auto) 0.9 (0.1-1.2) X10*3/uL Eos # (Auto) 0.1 (0.0-0.4) X10*3/uL Baso # (Auto) 0.1 (0.0-0.2) X10*3/uL Abs Immat Gran (auto) 0.16 H (0.00-0.03) X10*3/uL Absolute Neuts (auto) 11.9 H (2.0-8.3) x10*3/uL Absolute Nucleated RBC 0.000 (0.0-0.012) X10*3/uL Nucleated RBC % (auto) 0.0 (0.0-0.2) /100WBC Sodium 142 (135-145) mmol/L Potassium 3.4 (3.3-5.1) mmol/L Chloride 107 (96-108) mmol/L Carbon Dioxide 22 (22-29) mmol/L Anion Gap 16 (12-20) BUN 10 (9-16) mg/dL Creatinine 0.85 (0.5-1.4) mg/dL Estim Creat Clear Calc 91.4 Estimated GFR > 60 Random Glucose 162 H (60-115) mg/dL Calcium 9.4 (8.4-10.2) mg/dL Total Bilirubin 0.4 (0.0-1.0) mg/dL Direct Bilirubin 0.2 (0.0-0.5) mg/dL AST 33 H (5-31) U/L ALT 29 (0-31) U/L Alkaline Phosphatase 116 (39-117) U/L Total Protein 8.0 (6.5-8.0) g/dL Albumin 4.3 (3.5-5.0) g/dL Lipase 17 (8-78) U/L Independent Interpretation I performed an independent interpretation of an: CT Scan ( abdomen and pelvis:. There is a fat halo sign of the ascending colon, which can be seen associated with inflammatory bowel disease. There is no paracolic fat stranding or abscess to suggest this is active. 2. Subtle fat stranding of the central mesentery is seen, with nonpathologically enlarg) Radiology Impression Discussion of test interpretation with radiology: I have reviewed the radiologist's reading. Discharge Plan Discharge Clinical Impression: Gastroenteritis Patient Disposition: Home, Self-Care Instructions: Gastroenteritis (ED) Prescriptions: No Action sennosides [Natural Senna Laxative] 8.6 mg tablet 8.6 mg PO BEDTIME Qty: 30 3RF Citrucel 500 mg tablet 500 mg PO DAILY Qty: 30 2RF Rx Instructions: take it with full glass of water polyethylene glycol 3350 [Miralax] 17 gram/dose powder 17 g PO DAILY Qty: 510 6RF esomeprazole magnesium [Nexium] 40 mg capsule,delayed release(DR/EC) 40 mg PO DAILY Qty: 30 5RF tramadol 50 mg tablet 50 mg PO Q6H PRN (Reason: pain) Qty: 20 0RF ibuprofen 600 mg tablet 600 mg PO TID PRN (Reason: pain) Qty: 15 0RF cyclobenzaprine 10 mg tablet 10 mg PO TID PRN (Reason: muscle spasm) Qty: 15 0RF oxycodone-acetaminophen 5-325 mg tablet 1 tab PO Q6H PRN (Reason: pain) Qty: 5 0RF Rx Instructions: Partial Fill upon patient request. simethicone [Gas Relief (simethicone)] 125 mg capsule 125 mg PO TID-QID PRN (Reason: abdominal distention) Qty: 120 2RF pregabalin [Lyrica] 150 mg capsule 150 mg PO BID cholecalciferol (vitamin D3) 50 mcg (2,000 unit) capsule 50 mcg PO DAILY mecobalamin (vitamin B12) 1,000 mcg tablet,disintegrating 1,000 mcg sublingual BEDTIME Rx Instructions: place tablet under tongue and allow to dissolve for at least30 secs before swallowing amlodipine 10 mg tablet 10 mg PO DAILY quetiapine [Seroquel] 50 mg tablet 50 mg PO BEDTIME Referrals: [facility] [Primary Care Provider] - Print Language: Greenlandic
[2024-02-20] MEDS: Famotidine/PF 20 MG/2 ML VIAL IVPUSH (23:19)
[2024-02-20] MEDS: 0.9 % Sodium Chloride 1,000 ML 999 ML IV (23:19)
[2024-02-20] MEDS: ondansetron HCL 4 MG/2 ML VIAL IVPUSH (23:19)
[2024-02-20] MEDS: Loperamide HCl 2 MG CAPSULE PO (23:52)
[2024-02-20] MEDS: Magnesium Hydrox/Alum Hydrox 30 ML ORAL.SUSP PO (23:52)
[2024-02-21 00:06] LABS: Alanine Aminotransferase 29 U/L (0-31); Albumin Level 4.3 g/dL (3.5-5.0); Alkaline Phosphatase 116 U/L (39-117); Aspartate Amino Transferase 33 U/L (5-31); Bilirubin Direct 0.2 mg/dL (0.0-0.5); Bilirubin Total 0.4 mg/dL (0.0-1.0); Lipase 17 U/L (8-78)
--- NOTE | 2024-02-21 00:11 | PC.NURSE ---
this rn assumed care of pt @ 2300 pt medicated according to mar
[2024-02-21 00:18] VITALS: BP 146/82; PULSE 90; RESP 20; TEMP 37.2; O2SAT 94
[2024-02-21 01:10] VITALS: BP 161/92; PULSE 90; RESP 16; TEMP 37.3; O2SAT 94
[2024-02-21 01:11] VITALS: BP 161/92; PULSE 90; RESP 16; TEMP 37.3; O2SAT 94
== END 2024-02-21 01:13 | disposition home or self-care (01) ==
PROVIDERS: Emergency Provider Emergency Medicine
DX: K52.9 Noninfective gastroenteritis and colitis, unspecified (principal); R11.2 Nausea with vomiting, unspecified; D72.829 Elevated white blood cell count, unspecified; R10.9 Unspecified abdominal pain
CPT/HCPCS: 36415; 74176; 80048; 80076; 83690; 85025; 96361; 96374; 96375; 99284; J2405

== ENCOUNTER 2024-03-29 09:37 | Outpatient (REF) | payer MEDICAID, SELFPAY ==
[2024-03-29 11:25] LABS: MANUAL DIFF FLAG NO
[2024-03-29 11:30] LABS: Basophils Absolute Auto 0.1 X10*3/uL (0.0-0.2); Basophils Percent Auto 0.8 % (0-2); Eosinophils Absolute Auto 0.3 X10*3/uL (0.0-0.4); Eosinophils Percent Auto 2.7 % (0-4); Hemoglobin 13.1 g/dl (12.0-16.0); Imm Gran Abs Auto 0.02 X10*3/uL (0.00-0.03); Imm Gran Pct Auto 0.2 % (0.0-0.4); Lymphocytes Absolute Auto 4.2 X10*3/uL (1.2-4.9); Lymphocytes Percent Auto 45.3 % (20-40); Mean Corpuscular HGB Conc 32.8 g/dl (31.0-35.0); Mean Corpuscular Hemoglobin 28.7 pg (27.0-33.0); Mean Corpuscular Volume 87.7 fL (80.0-98.0); Mean Platelet Volume 12.7 fL (9.4-12.3); Monocytes Absolute Auto 0.9 X10*3/uL (0.1-1.2); Monocytes Percent Auto 9.7 % (2-11); Neutrophils Absolute Auto 3.9 x10*3/uL (2.0-8.3); Neutrophils Percent Auto 41.3 % (45-73); Platelet Count 223 X10*3/uL (160-400); Red Blood Count 4.56 X10*6/uL (4.20-5.50); Red Cell Distribution Width 14.4 % (11.0-16.0); White Blood Count 9.3 X10*3/uL (4.8-10.8)
[2024-03-29 11:31] LABS: Appearance Urine Turbid; Color Urine Yellow; Glucose Urine UA Negative (Negative); Leukocyte Esterase Urine Moderate (2+) (Negative); Nitrite Urine Negative (Negative); Specific Gravity - Urine 1.015 (1.005-1.025); UMIC TRIGGER UA YES; Urine Blood Trace (Negative); Urine Ketones Negative (Negative); Urine Protein Negative (Neg-Trace)
[2024-03-29 11:35] LABS: Bacteria Urine 4+ (None Seen); Hyaline Casts Urine 0-2 /LPF (0-2); Squamous Epithelial Cell Urine >20 /HPF (0-2)
[2024-03-29 11:47] LABS: Rheumatoid Factor < 13.0 IU/mL (<15.0)
[2024-03-29 12:05] LABS: Alanine Aminotransferase 31 U/L (0-31); Albumin Level 3.8 g/dL (3.5-5.0); Alkaline Phosphatase 98 U/L (39-117); Anion Gap 10 (12-20); Aspartate Amino Transferase 34 U/L (5-31); Bilirubin Direct 0.2 mg/dL (0.0-0.5); Bilirubin Total 0.5 mg/dL (0.0-1.0); Blood Urea Nitrogen 8 mg/dL (9-16); Calcium 8.8 mg/dL (8.4-10.2); Carbon Dioxide 30 mmol/L (22-29); Chloride 107 mmol/L (96-108); Cholesterol 135 mg/dL (<200); Estimated Glomerular Filt Rate > 60; Glucose Random 103 mg/dL (60-115); HDL Cholesterol 32 mg/dL (>40); LDL Cholesterol Calculated 80 mg/dL (<100); Lactate Dehydrogenase 196 U/L (122-220); Potassium 4.3 mmol/L (3.3-5.1); Sodium 143 mmol/L (135-145); Total Protein 7.2 g/dL (6.5-8.0); Triglycerides 119 mg/dL (<150)
[2024-03-29 12:12] LABS: TSH reflex Free T4 0.77 uIU/mL (0.32-4.0)
[2024-03-29 12:14] LABS: Erythrocyte Sedimentation Rate 7 MM/HR (0-20)
[2024-04-01 13:58] LABS: Anti Nuclear Antibody Pattern Nuclear, Speckled; Anti Nuclear Antibody Screen POSITIVE (NEGATIVE); Anti Nuclear Antibody Titer 1:40 titer
== END 2024-03-29 09:38 | disposition home or self-care (01) ==
LOC: HO.HHCL 09:37
PROVIDERS: Visit Provider Family Medicine
DX: R93.5 Abnormal findings on diagnostic imaging of other abdominal regions, including retroperitoneum (principal); E78.5 Hyperlipidemia, unspecified; L65.9 Nonscarring hair loss, unspecified; M54.9 Dorsalgia, unspecified
CPT/HCPCS: 36415; 80048; 80061; 80076; 81001; 83615; 84443; 85025; 85652; 86038; 86039; 86140; 86431

== ENCOUNTER 2024-05-25 07:32 | Outpatient (REF) | payer MEDICAID, SELFPAY ==
--- NOTE | ~2024-05-25 | CT_ITS ---
CLINICAL HISTORY: PAIN CT abdomen and pelvis with contrast Comparison: CT/SR - CT ABDOMEN PELVIS WO IV CON - 02/20/24 23:[address] - ABD PELV W IV CON ONLY [id number] - 08/26/18 18:[address]/REG/SR - ABD PELV W IV CON ONLY [id number] - 08/26/18 18:18 EDT Findings: No consolidation at the lung bases. Unremarkable gallbladder and bladder. The solid organs are normal. No bowel dilation. Unchanged increased submucosal fat in the proximal colon which could be secondary to body habitus or chronic inflammation. A normal appendix is identified. No aneurysm. Moderate calcified atherosclerotic disease. No lymphadenopathy. 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 No ascites. No acute osseous abnormality. Impression: No acute findings. This document has been electronically signed by: Chrissie Fuentes MD on 05/26/2024 15:30:16
[2024-05-25] MEDS: Barium Sulfate Oral (Vanilla) 450 ML ORAL.SUSP PO ×2 (11:10)
[2024-05-25] MEDS: iohexoL 350 MG/ML 100 ML INFUS..BTL IV (11:10)
[2024-05-25 13:00] LABS: Creatinine POC 0.9 mg/dL (0.5-1.4); GFR POC > 60
== END 2024-05-25 07:33 | disposition home or self-care (01) ==
LOC: HO.CT 07:32
PROVIDERS: PCP Family Medicine; Visit Provider Family Medicine
DX: R93.5 Abnormal findings on diagnostic imaging of other abdominal regions, including retroperitoneum (principal); R52 Pain, unspecified
CPT/HCPCS: 74177; 82565; Q9967

== ENCOUNTER → 2024-05-25 07:35 | Outpatient (BNV) | payer MEDICAID, SELFPAY | PROVIDERS: PCP Family Medicine; Visit Provider Radiology Diagnostic Radiology | DX: R10.9 Unspecified abdominal pain (principal) | CPT/HCPCS: 74177 ==

== ENCOUNTER 2024-07-11 10:21 | Outpatient (REF) | payer MEDICAID, SELFPAY ==
--- NOTE | ~2024-07-11 | XR_ITS ---
EXAMINATION: XR LUMBOSACRAL SPINE CLINICAL INFORMATION: chornic back pian COMPARISON: December 10, 2021 TECHNIQUE: Three views of the lumbosacral spine. FINDINGS: Dextroconvex curvature apex at L2. Multilevel marginal osteophyte formation and endplate sclerosis throughout the axial skeleton. No acute cortical disruption or gross malalignment. Vascular calcifications, aorta. XR/XR lumbar spine 2-3V IMPRESSION: Scoliosis and multilevel thoracolumbar spondylosis without acute fracture or gross listhesis. Stable. Electronically signed by: Pepito Mckinnon MD 07/11/2024 12:30 PM EDT
--- NOTE | ~2024-07-11 | XR_ITS ---
EXAMINATION: XR CERVICAL SPINE CLINICAL INFORMATION: chornic back pain COMPARISON: December 10, 2015. TECHNIQUE: 3 views of the cervical spine were obtained. FINDINGS: Craniocervical junction is intact. Marginal osteophyte formation and endplate sclerosis and decreased intervertebral disc height at C5-6 and C6-7 levels. No acute cortical disruption. Questionable grade 1 retrolisthesis C6-7. Upper airways patent. XR/XR cervical spine 3V IMPRESSION: Cervical spondylosis C5-6 and C6-7 levels with the questionable grade 1 retrolisthesis C6-7. Electronically signed by: Pepito Mckinnon MD 07/11/2024 12:31 PM EDT
--- NOTE | ~2024-07-11 | XR_ITS ---
EXAMINATION: XR THORACIC SPINE CLINICAL INFORMATION: chornic back pain COMPARISON: September 24, 2018. TECHNIQUE: 3 views of the thoracic spine were obtained. FINDINGS: S-shaped curvature of the thoracolumbar spine. Marginal osteophyte formation at T11-T12. Marginal osteophyte formation and endplate sclerosis in the mid thoracic spine. No acute cortical disruption or gross malalignment. No lytic or blastic lesions. . XR/XR thoracic spine 3V IMPRESSION: Mild scoliosis, thoracolumbar spine and mild to moderate multilevel thoracic spondylosis. No gross change. Electronically signed by: Pepito Mckinnon MD 07/11/2024 12:32 PM EDT
[2024-07-11 11:36] LABS: Estimated Average Glucose 131 mg/dL; Hemoglobin A1C 143.1633 umol/L; Hemoglobin A1c % 6.2 % (<6.0); Total Hemoglobin (HGBA1C) 3231.2803 umol/L
--- OUTSIDE RECORDS SUMMARY | 2024-07-11 11:42 | XMS_ITS | Encounter Summary ---
Author Organization [employer] Address [address] [place] [address] Care Team Providers Care Staffing Recruiter Name Role Phone Karina Wood MD Primary Care Provider Amy Shukla PharmD Unavailable [phone] Marisel Alcala MD Unavailable [phone] Janel Lai Unavailable Encounter Details Date Type Department Care Team (Late st Contact Info) Description 03/31/2022 Orders Only [facility] [address], [place] [phone] Gauri Negron LPN Social History Tobacco Use Types Packs/Day Years Used Date Smoking Tobacco: Never Assessed Comments Unknown Sex and Gender Information Value Date Recorded Sex Assigned at Female 01/06/2022 10:14 AM EDT Legal Sex Female 10:14 AM EDT Gender Identity Female 01/06/2022 10:14 AM EDT Sexual Orientation Straight 01/06/2022 10 :14 AM EDT documented as of this encounter Plan of Treatment Not on file documented as of this encounter Visit Diagnoses Not on filedocumented in this encounter Care Teams Staffing Recruiter Relationship Specialty Start Date End Date Karina Wood MD [address], [place] [phone] PCP - General Family Medicine 10/03/16 Amy Shukla, PharmD [address], [place] [phone] Pharmacist Internal Medicine 07/17/22 01/05/23 Marisel Alcala MD [address] [place] [address] Orthopaedic Surgery 03/31/24 Janel Lai [address] [place] [address] Gastroenterology 03/31/24 documented as of this encounter
--- OUTSIDE RECORDS SUMMARY | 2024-07-11 11:42 | XMS_ITS | Clinical Summary ---
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 ibuprofen 600 MG tabletIndicatio ns:Fibromyalgia TAKE 1 TABLET BY MOUTH THREE TIMES A DAY IF NEEDED 90 tablet 11/07/19 23 Active senna (Senokot) 8.6 MG tabletIndicatio ns:Constipation , unspecified constipation type Take 1 tablet (8.6 mg) by mouth if needed at bedtime for constipation . 120 tablet 3 12/02/19 23 Active polyvinyl alcohol (Liquifilm Tears) 1.4 % ophthalmic solutionIndicat ions:Dry eyes one drop in each eye 3-4 times a day 15 mL 3 12/02/19 23 Active cyclobenzaprine (Flexeril) 10 MG tabletIndicatio ns:Fibromyalgia TAKE 1 TABLET BY MOUTH THREE TIMES DAILY IN THE MORNING, AT NOON, AND AT BEDTIME NEEDED FOR MUSCLE SPASMS 90 tablet 04/06/19 24 Active nicotine (Nicoderm, Step 2) 14 MG/24HR patchIndication s:Nicotine Dependence Place 1 patch on the skin 1 (one) time each day at the same time. 30 patch 3 07/10/19 24 Active nicotine polacrilex (Nicorette) 4 MG gumIndications: Tobacco abuse Chew 1 each (4 mg) if needed for smoking cessation. 100 each 07/12/19 24 Active atorvastatin (Lipitor) 40 MG tabletIndicatio ns:Dyslipidemia Take 1 tablet (40 mg) by mouth Once per day. 30 tablet 11 07/15/19 24 025 Active QUEtiapine (SEROquel) 50 MG tabletIndicatio ns:Fibromyalgia TAKE 1 TABLET BY MOUTH AT BEDTIME 90 tablet 3 11/26/19 24 Active cyanocobalamin (Vitamin B-12) 1000 MCG tabletIndicatio ns:B12 deficiency TAKE 1 TABLET BY MOUTH EVERY DAY 90 tablet 3 12/08/19 24 Active lisinopril 10 MG tabletIndicatio ns:Essential hypertension TAKE 1 TABLET BY MOUTH EVERY MORNING 90 tablet 3 12/31/19 24 Active esomeprazole (NexIUM) [address] capsuleIndicati ons:Gastroesoph ageal reflux disease, unspecified whether esophagitis present TAKE 1 CAPSULE BY MOUTH EVERY DAY 90 capsule 1 01/19/20 24 Active D3-1000 25 MCG (1000 UT) capsuleIndicati ons:Vitamin D deficiency TAKE 1 CAPSULE BY MOUTH EVERY MORNING 90 capsule 3 02/10/20 24 Active Ventolin HFA 108 (90 Base) MCG/ACT inhalerIndicati ons:Mild intermittent asthma without complication INHALE 2 PUFFS BY MOUTH EVERY 4 HOURS NEEDED FOR WHEEZING OR SHORTNESS OF BREATH 18 g 3 04/08/19 25 Active pregabalin (Lyrica) 150 MG capsuleIndicati ons:Fibromyalgi a TAKE 1 CAPSULE BY MOUTH TWICE DAILY 60 capsule 04/12/19 25 Active pregabalin (Lyrica) 200 MG capsuleIndicati ons:Fibromyalgi a Take 1 capsule (200 mg) by mouth 2 times daily. Dose increased 05/11/24 60 capsule 3 05/12/19 25 026 Active magnesium oxide 250 MG tabletIndicatio ns:Fibromyalgia Take 1 tablet (250 mg) by mouth at bedtime. 90 tablet 06/29/19 25 Active oxyCODONE-aceta minophen (Percocet) 5-325 MG tablet Take 1 tablet by mouth every 6 (six) hours if needed. 06/04/19 24 025 Discontinued(Me d list cleanup (will not trigger notification to Pharmacy)) magnesium oxide 250 MG tabletIndicatio ns:Fibromyalgia TAKE 1 TABLET BY MOUTH AT BEDTIME 90 tablet 04/05/19 025 Discontinued(Re order (will not trigger notification to Pharmacy)) Active Problems Problem Noted Date Diagnosed Date Chronic midline back pain 07/11/2024 Atherosclerotic vascular disease 05/27/2024 Overview (05/27/2024): CT done 05/2024 incidentally showed Moderate calcified atherosclerotic disease. -lifestyle modification discussed Low back pain at multiple sites 04/13/2024 Overview (04/13/2024): Likely musculoskeletal. Non-focal, normal motor exam without neurological deficits. No back pain red-flags: bowel/bladder incontinence, IVDU, urinary retention, saddle anesthesia, and significant motor deficits. -Recommend ibuprofen and muscle relaxer prn. -referral to pain managment -Acupuncture clinic offered. -Lifting precaution sand stretching reviewed. -ER precaution discussed. Assessment & Plan (04/13/2024 12:27 PM EST): Likely musculoskeletal. Non-focal, normal motor exam without neurological deficits. No back pain red-flags: bowel/bladder incontinence, IVDU, urinary retention, saddle anesthesia, and significant motor deficits. -Recommend ibuprofen and muscle relaxer prn. -referral to pain managment -Acupuncture clinic offered. -Lifting precaution sand stretching reviewed. -ER precaution discussed. Total body pain 03/25/2024 Overview (03/25/2024): Reports new total body pains, different from chronic fibromyalgia pains. -ordered labs to evaluate for inflammation, thyroid abnormality, RA and BMP/CBC. 03/25/24 -also has repeat abdominal CT ordered for previous found abnormality and will evaluate for source of total body pains as well. 03/25/24. Assessment & Plan (03/25/2024 10:29 AM EST): Reports new total body pains, different from chronic fibromyalgia pains. -ordered labs to evaluate for inflammation, thyroid abnormality, RA and BMP/CBC. 03/25/24 -also has repeat abdominal CT ordered for previous found abnormality and will evaluate for source of total body pains as well. 03/25/24. Hair loss 03/25/2024 Overview (03/25/2024): Reported generalized hair loss. Dicussed hormonal changes as a contributing factor. Recommended to no always keep hair in a ponytail. Will keep monitoring and follow-up. Assessment & Plan (03/25/2024 10:26 AM EST): Reported generalized hair loss. Dicussed hormonal changes as a contributing factor. Recommended to no always keep hair in a ponytail. Will keep monitoring and follow-up. Acute midline back pain 03/25/2024 Overview (07/11/2024): Reports new acute back pain that radiates down her spine. Unable to evaluate given Televisit. Given previous abnormal CT, ordered repeat abdominal CT and will evaluate spine as well 03/25/24. -additionally ordered UA, inflammatory markers and TSH 03/25/24, TSH was normal, UA contaminated, no culture available. Inflammatory markers normal, except MARIA ISABEL positive. Assessment & Plan (03/25/2024 10:25 AM EST): Reports new acute back pain that radiates down her spine. Unable to evaluate given Televisit. Given previous abnormal CT, ordered repeat abdominal CT and will evaluate spine as well 03/25/24. -additionally ordered UA, inflammatory markers and TSH 03/25/24. Abnormal CT of the abdomen 02/22/2024 Overview (07/11/2024): CT/CT abdomen pelvis wo IV con done in ER 02/21/24 for abdominal pain revealed fat halo sign of the ascending colon, which can be seen associated with inflammatory bowel disease. There is no paracolic fat stranding or abscess to suggest this is active. Subtle fat stranding of the central mesentery is seen, with nonpathologically enlarged mesenteric lymph nodes, a michelle mesentery appearance. This has a broad differential which includes mesenteric adenitis. It has been described with lymphoma although typically there is a history of lymphoma or evidence of lymphadenopathy elsewhere, not seen on this patient. In the absence of symptoms, it is of uncertain etiology or clinical significance. If there is continued clinical concern, a follow-up CT scan could be obtained in 3-6 months. No bowel obstruction, free intraperitoneal air or abscess is seen. There is no appendicitis or colitis. No urinary calculus or obstruction is seen. There is no abdominopelvic mass or ascites. There are degenerative changes of the spine, without aggressive osseous lesion. -ordered repeat given suspicion of deferred pain. Denies any abdominal pain03/25/24 -Repeat CT 05/2024 Moderate calcified atherosclerotic disease. No lymphadenopathy. 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 No ascites. Assessment & Plan (05/11/2024 1:48 PM EST): CT/CT abdomen pelvis wo IV con done in ER 02/21/24 for abdominal pain revealed fat halo sign of the ascending colon, which can be seen associated with inflammatory bowel disease. There is no paracolic fat stranding or abscess to suggest this is active. Subtle fat stranding of the central mesentery is seen, with nonpathologically enlarged mesenteric lymph nodes, a michelle mesentery appearance. This has a broad differential which includes mesenteric adenitis. It has been described with lymphoma although typically there is a history of lymphoma or evidence of lymphadenopathy elsewhere, not seen on this patient. In the absence of symptoms, it is of uncertain etiology or clinical significance. If there is continued clinical concern, a follow-up CT scan could be obtained in 3-6 months. 3. No bowel obstruction, free intraperitoneal air or abscess is seen. There is no appendicitis or colitis. 4. No urinary calculus or obstruction is seen. 5. There is no abdominopelvic mass or ascites. 6. There are degenerative changes of the spine, without aggressive osseous lesion. -ordered repeat given suspicion of deferred pain. Denies any abdominal pain. 03/25/24 Assessment & Plan (03/25/2024 10:21 AM EST): CT/CT abdomen pelvis wo IV con done in ER 02/21/24 for abdominal pain revealed fat halo sign of the ascending colon, which can be seen associated with inflammatory bowel disease. There is no paracolic fat stranding or abscess to suggest this is active. Subtle fat stranding of the central mesentery is seen, with nonpathologically enlarged mesenteric lymph nodes, a michelle mesentery appearance. This has a broad differential which includes mesenteric adenitis. It has been described with lymphoma although typically there is a history of lymphoma or evidence of lymphadenopathy elsewhere, not seen on this patient. In the absence of symptoms, it is of uncertain etiology or clinical significance. If there is continued clinical concern, a follow-up CT scan could be obtained in 3-6 months. 3. No bowel obstruction, free intraperitoneal air or abscess is seen. There is no appendicitis or colitis. 4. No urinary calculus or obstruction is seen. 5. There is no abdominopelvic mass or ascites. 6. There are degenerative changes of the spine, without aggressive osseous lesion. -ordered repeat given suspicion of deferred pain. Denies any abdominal pain. 03/25/24 Class 1 obesity due to exces s calories with body mass index (BMI) of 33.0 to 33.9 in adult 12/28/2023 Overview (12/28/2023): Pt is drinking approx. a 2L bottle of soda/day. -recommended drinking with ice to decrease amount of intake as well as using a smaller cup. -discussed titrating the bottle to last longer than 1 day and then increasing the titration. Assessment & Plan (03/25/2024 10:20 AM EST): Pt is drinking approx. a 2L bottle of soda/day. -recommended drinking with ice to decrease amount of intake as well as using a smaller cup. -discussed titrating the bottle to last longer than 1 day and then increasing the titration. Assessment & Plan (12/28/2023 9:32 AM EDT): Pt is drinking approx. a 2L bottle of soda/day. -recommended drinking with ice to decrease amount of intake as well as using a smaller cup. -discussed titrating the bottle to last longer than 1 day and then increasing the titration. Bilateral lower extremity edema 12/28/2023 Overview (12/28/2023): Bilateral lower extremity edema, acute on chronic. Differential includes chronic venous insufficiency, medication induced, capillary dilation from warmer weather, lymphedema, and lipedema. Less likely but also on differential is fluid overload from untreated FREEDOM or heart failure, low oncotic pressure, DVT, neuromuscular causes, cellulitis, ruptured popliteal cyst, or May Thurner syndrome. -Stemmers sign negative (able to pinch skin on the dorsum of foot) -No evidence of heart failure or untreated FREEDOM, JVP flat, lungs clear -Wells score -No evidence of cellulitis or ruptured popliteal cyst -Reveiwed chronic veous insufficiency is the most common cuse. Edema may be a sign cardiopulmonary, renal, hepatic, or thyroid dysfunction. -Management includes compression, elevation, and avoidance of exacerbating medications. -Compression stockings -Advised diuretics may not be helpful in the absence of volume overload. They are not effective at mitigating edema caused by calcium channel blockers. Assessment & Plan (12/28/2023 9:37 AM EDT): Bilateral lower extremity edema, acute on chronic. Differential includes chronic venous insufficiency, medication induced, capillary dilation from warmer weather, lymphedema, and lipedema. Less likely but also on differential is fluid overload from untreated FREEDOM or heart failure, low oncotic pressure, DVT, neuromuscular causes, cellulitis, ruptured popliteal cyst, or May Thurner syndrome. -Stemmers sign negative (able to pinch skin on the dorsum of foot) -No evidence of heart failure or untreated FREEDOM, JVP flat, lungs clear -Wells score -No evidence of cellulitis or ruptured popliteal cyst -Reveiwed chronic veous insufficiency is the most common cuse. Edema may be a sign cardiopulmonary, renal, hepatic, or thyroid dysfunction. -Management includes compression, elevation, and avoidance of exacerbating medications. -Compression stockings -Advised diuretics may not be helpful in the absence of volume overload. They are not effective at mitigating edema caused by calcium channel blockers. Cardiac risk counseling 07/15/2023 Overview (12/28/2023): The 10-year ASCVD risk score (Lewis QUAN, et al., 2019) is: 13.2% Values used to calculate the score: Age: 53 years Sex: Female Is Non- : No Diabetic: No Tobacco smoker: Yes Systolic Blood Pressure: 140 mmHg Is BP treated: Yes HDL Cholesterol: 35 mg/dL Total Cholesterol: 245 mg/dL -Atherosclerotic Cardiovascular Disease (ASCVD) Risk Calculator is intended for a person age 40-79 without ASCVD and with LDL-cholesterol < 190/mg/dl to assesses the chances of developing heart disease over the next 10 years. -ACC/AHA risk categories based on a person's estimated 10-year risk of CVD: ?Low - <5 percent ?Borderline risk - 5 to 7.4 percent ?Intermediate risk- 7.5 to 19.9 percent ?High risk- >=20 percent -Tobacco cessation: denies interest at this time 12/28/23 -Statin therapy: atorvastatin 40mg started 07/15/23 with goal LDL < 100, recheck FLP and LFTs 6 weeks -Importance of moderate physical activity and nutrition interventions discussed. -Ordered repeat LFT's and FLP. 12/28/23 Assessment & Plan (12/28/2023 9:35 AM EDT): The 10-year ASCVD risk score (Lewis QUAN, et al., 2019) is: 13.2% Values used to calculate the score: Age: 53 years Sex: Female Is Non- : No Diabetic: No Tobacco smoker: Yes Systolic Blood Pressure: 140 mmHg Is BP treated: Yes HDL Cholesterol: 35 mg/dL Total Cholesterol: 245 mg/dL -Atherosclerotic Cardiovascular Disease (ASCVD) Risk Calculator is intended for a person age 40-79 without ASCVD and with LDL-cholesterol < 190/mg/dl to assesses the chances of developing heart disease over the next 10 years. -ACC/AHA risk categories based on a person's estimated 10-year risk of CVD: ?Low - <5 percent ?Borderline risk - 5 to 7.4 percent ?Intermediate risk- 7.5 to 19.9 percent ?High risk- >=20 percent -Tobacco cessation: denies interest at this time 12/28/23 -Statin therapy: atorvastatin 40mg started 07/15/23 with goal LDL < 100, recheck FLP and LFTs 6 weeks -Importance of moderate physical activity and nutrition interventions discussed. -Ordered repeat LFT's and FLP. 12/28/23 Moderate anxiety 07/14/2023 De Quervain's tenosynovitis, right 06/05/2023 Right tennis elbow 06/05/2023 Strain of cervical portion of right trapezius mu scle 06/05/2023 Tubular adenoma 06/05/2023 Episode of recurrent major depressive disorder 0 06/05/2023 Overview (06/05/2023): - Referral place to [facility] for further management 06/05/23 Assessment & Plan (06/05/2023 11:01 AM EDT): - Referral place to behavioral health for further management 06/05/23 Other specified health status 08/27/2022 Overview (06/05/2023): -next physical exam due after 06/04/24 -eye care facilitated by [facility] -dental home is [facility] - Health care proxy paperwork completed by the patient 06/05/23 Assessment & Plan (06/05/2023 10:58 AM EDT): -next physical exam due after 06/04/24 -eye care facilitated by [facility] -dental home is [facility] -Health care proxy paperwork completed by the patient 06/05/23 Assessment & Plan (12/01/2022 9:06 AM EDT): -next physical exam due after 12/2022 -eye care facilitated by -dental home is Assessment & Plan (08/27/2022 8:59 AM EDT): Next PE due 12/2022. Torticollis 07/03/2022 Assessment & Plan (07/03/2022 5:27 PM EDT): Pt c/o pain in her right side of neck tender w palpation over specific area of neck ,worse w movement , no alarming findings and normal neuro exam Seems muscular in nature -alarm signs and symptoms explained -advised to get new pillow if previous is old and to have adequate postures -warm compresses advised and a soft collar -tylenol prn-advise to try 500 mg q8h but can increase to 1 gr if needed --today gave 1 dose of tylenol in office an wait x 30 min to eval x SE -reported in the past but pt was feeling fine w no SE. -ok to continue taking her chronic muscle relaxant -advised x PT if symptoms persist but wants to hold x now Tobacco abuse 07/03/2022 Overview (12/28/2023): -Cigg/day: 10 -Age started: 17-quit for 7 years -Total years smokin -Pack year history: 21.75 -Discussed starting Chantix 08/27/22. -Declines Chantix as she tried Chantix in the past and reports unpleasant side effects (anxiety and shaking) Encouraged smoking cessation resources such as pharmacomtherapy, [facility] smoking cessation group, and [facility] pharmacy smoking cessation clinic Discussed [facility] recommends annual lung cancer screening with low dose CT in people who meet the following criteria: -ages 50 to 80 years. -have a 20 pack-year smoking history. -currently smoke cigarettes or quit within the past 15 years. -LDCT 08/28/23 No evidence of pulmonary malignancy. Repeat in 1 year. Assessment & Plan (12/28/2023 9:38 AM EDT): -Cigg/day: 10 -Age started: 17-quit for 7 years -Total years smokin -Pack year history: 21.75 -Discussed starting Chantix 08/27/22. -Declines Chantix as she tried Chantix in the past and reports unpleasant side effects (anxiety and shaking) Encouraged smoking cessation resources such as pharmacomtherapy, [facility] smoking cessation group, and [facility] pharmacy smoking cessation clinic Discussed [facility]PSTF recommends annual lung cancer screening with low dose CT in people who meet the following criteria: -ages 50 to 80 years. -have a 20 pack-year smoking history. -currently smoke cigarettes or quit within the past 15 years. -LDCT 08/28/23 No evidence of pulmonary malignancy. Repeat in 1 year. Assessment & Plan (07/10/2023 11:39 AM EDT): -Cigg/day: 10 -Age started: 17-quit for 7 years -Total years smokin -Pack year history: 21.75 -Discussed starting Chantix 08/27/22. -Declines Chantix as she tried Chantix in the past and reports unpleasant side effects (anxiety and shaking) Encouraged smoking cessation resources such as pharmacomtherapy, [facility] smoking cessation group, and [facility] pharmacy smoking cessation clinic [facility]ed [facility] recommends annual lung cancer screening with low dose CT in people who meet the following criteria: -ages 50 to 80 years. -have a 20 pack-year smoking history. -currently smoke cigarettes or quit within the past 15 years. -LDCT: Referral placed 07/10/23 Assessment & Plan (06/05/2023 10:55 AM EDT): -10-12 cigarettes a day. -Discussed starting Chantix 08/27/22. Encouraged smoking cessation resources such as pharmacomtherapy, [facility] smoking cessation group, and [facility] pharmacy smoking cessation clinic Discussed [facility] recommends annual lung cancer screening with low dose CT in people who meet the following criteria: -ages 50 to 80 years. -have a 20 pack-year smoking history. -currently smoke cigarettes or quit within the past 15 years. Assessment & Plan (08/27/2022 9:58 AM EDT): -10-12 cigarettes a day. -Discussed starting Chantix 08/27/22. Assessment & Plan (07/03/2022 5:32 PM EDT): Pt w hx of smoking > 30 years at least 10 cigarettes a day PQT a day 15- w no indication x lung ca screening at this point -discussed about smoking cessation and pt is interested in attend to program x it-referred today Essential hypertension 05/09/2022 Overview (08/27/2022): -Blood pressure is at goal -Continue lifestyle modifications -Continue current medications Assessment & Plan (12/28/2023 9:36 AM EDT): -Blood pressure is at goal -Continue lifestyle modifications -Continue current medications Assessment & Plan (08/27/2022 9:09 AM EDT): -Blood pressure is at goal -Continue lifestyle modifications -Continue current medications Assessment & Plan (07/03/2022 5:35 PM EDT): Noted elevated BP today BUT pt not took BP med this morning -advised to be complaint w meds and to schedule a f up visit w her PCP to f BP -states has all meds refilled -referred today to opthalmologist Prediabetes 05/09/2022 Overview (12/01/2022): A1c 5.7% 02/08/2021. She is currently drinking 2L pepsi/day and 4 coffees with 2.5 tsp sugar/day. Motivational interviewing done. She wants to switch to tea and slowly cut down on Pepsi. She likes water. -Continue lisinopril 10mg daily. Assessment & Plan (12/01/2022 9:06 AM EDT): A1c 5.7% 02/08/2021. She is currently drinking 2L pepsi/day and 4 coffees with 2.5 tsp sugar/day. Motivational interviewing done. She wants to switch to tea and slowly cut down on Pepsi. She likes water. -Continue lisinopril 10mg daily. Assessment & Plan (08/27/2022 9:32 AM EDT): A1c 5.7% 02/08/2021. She is currently drinking 2L pepsi/day and 4 coffees with 2.5 tsp sugar/day. Motivational interviewing done. She wants to switch to tea and slowly cut down on Pepsi. She likes water. -Continue lisinopril 10mg daily. Transaminitis 05/09/2022 Overview (03/31/2024): Lab Results Component Value Date AST 34 (H) 03/29/2024 AST 33 (H) 02/20/2024 AST 14 08/27/2022 ALT 31 03/29/2024 ALT 29 02/20/2024 ALT 17 08/27/2022 ALT 35 (H) 02/08/2021 TOTALBILIRUB 0.5 03/29/2024 TOTALBILIRUB 0.4 02/20/2024 PLT 223 03/29/2024 CREATININE 0.79 03/29/2024 CREATININE 0.83 04/30/2021 NA 143 03/29/2024 -Possibly from EtOH at time of draw. Denies regular EtOh , recheck with Hep C Assessment & Plan (08/27/2022 8:58 AM EDT): Possibly from EtOH at time of draw. Denies regular EtOh , recheck with Hep C Cobalamin deficiency 10/22/2021 Fibromyalgia 10/22/2021 Overview (05/11/2024): Pt has chronic pain syndrome. Multiple work up are normal. I explained different treatment strategies for fibromyalgia. Continue Lyrica 150mg bid There is moderate evidence for efficacy for aerobic exercise, cognitive behavioral therapy, patient education, and group therapy. There is also evidence for acupuncture, hypnotherapy, biofeedback and balneotherapy. There is some weaker evidence for chiropractic therapy, massage, electrotherapy and ultrasound. There is no evidence that trigger point injections or opioids are beneficial in fibromyalgia. Pharmacologic options include muscle relaxants, gabapentin, pregabalin, and duloxetine, but are the lest effective of all strategies. Pt was counseled on the importance of exercise, adequate sleep, control of depression and or anxiety and stress management. Recommended acupuncture clinic. We discussed somatic healing, bio feedback and watching self hypnosis on youtube. Given new pain, will order labs to work-up for RA as well as underlying infections. 03/25/24 -Lyrica increased to 200 bid 05/11/24 -Given MARIA ISABEL pos will refer to to rheumatology -referred to [facility] -has pain management -acupuncture advised Assessment & Plan (05/16/2024 1:02 PM EDT): Pt attended and participated in chronic pain group today - good engagement with group model of care - continue to use combination of non-pharmacological modalities to address pain - followup in one week for nurition Assessment & Plan (05/11/2024 11:28 AM EST): Pt has chronic pain syndrome. Multiple work up are normal. I explained different treatment strategies for fibromyalgia. Continue Lyrica 150mg bid There is moderate evidence for efficacy for aerobic exercise, cognitive behavioral therapy, patient education, and group therapy. There is also evidence for acupuncture, hypnotherapy, biofeedback and balneotherapy. There is some weaker evidence for chiropractic therapy, massage, electrotherapy and ultrasound. There is no evidence that trigger point injections or opioids are beneficial in fibromyalgia. Pharmacologic options include muscle relaxants, gabapentin, pregabalin, and duloxetine, but are the lest effective of all strategies. Pt was counseled on the importance of exercise, adequate sleep, control of depression and or anxiety and stress management. Recommended acupuncture clinic. We discussed somatic healing, bio feedback and watching self hypnosis on youtube. Given new pain, will order labs to work-up for RA as well as underlying infections. 03/25/24 -Lyrica increased to 200 bid 05/11/24 -Given MARIA ISABEL pos will refer to to rheumatology -referred to [facility] pain group -has pain management -acupuncture advised Assessment & Plan (03/25/2024 10:20 AM EST): Pt has chronic pain syndrome. Multiple work up are normal. I explained different treatment strategies for fibromyalgia. Continue Lyrica 150mg bid There is moderate evidence for efficacy for aerobic exercise, cognitive behavioral therapy, patient education, and group therapy. There is also evidence for acupuncture, hypnotherapy, biofeedback and balneotherapy. There is some weaker evidence for chiropractic therapy, massage, electrotherapy and ultrasound. There is no evidence that trigger point injections or opioids are beneficial in fibromyalgia. Pharmacologic options include muscle relaxants, gabapentin, pregabalin, and duloxetine, but are the lest effective of all strategies. Pt was counseled on the importance of exercise, adequate sleep, control of depression and or anxiety and stress management. Recommended acupuncture clinic. We discussed somatic healing, bio feedback and watching self hypnosis on youtube. Given new pain, will order labs to work-up for RA as well as underlying infections. 03/25/24 Assessment & Plan (12/28/2023 9:37 AM EDT): Pt has chronic pain syndrome. Multiple work up are normal. I explained different treatment strategies for fibromyalgia. Continue Lyrica 150mg bid There is moderate evidence for efficacy for aerobic exercise, cognitive behavioral therapy, patient education, and group therapy. There is also evidence for acupuncture, hypnotherapy, biofeedback and balneotherapy. There is some weaker evidence for chiropractic therapy, massage, electrotherapy and ultrasound. There is no evidence that trigger point injections or opioids are beneficial in fibromyalgia. Pharmacologic options include muscle relaxants, gabapentin, pregabalin, and duloxetine, but are the lest effective of all strategies. Pt was counseled on the importance of exercise, adequate sleep, control of depression and or anxiety and stress management. Recommended acupuncture clinic. We discussed somatic healing, bio feedback and watching self hypnosis on youtube. Assessment & Plan (06/05/2023 11:06 AM EDT): Pt has chronic pain syndrome. Multiple work up are normal. I explained different treatment strategies for fibromyalgia. Continue Lyrica 150mg bid There is moderate evidence for efficacy for aerobic exercise, cognitive behavioral therapy, patient education, and group therapy. There is also evidence for acupuncture, hypnotherapy, biofeedback and balneotherapy. There is some weaker evidence for chiropractic therapy, massage, electrotherapy and ultrasound. There is no evidence that trigger point injections or opioids are beneficial in fibromyalgia. Pharmacologic options include muscle relaxants, gabapentin, pregabalin, and duloxetine, but are the lest effective of all strategies. Pt was counseled on the importance of exercise, adequate sleep, control of depression and or anxiety and stress management. Recommended acupuncture clinic. We discussed somatic healing, bio feedback and watching self hypnosis on youtube. Assessment & Plan (12/01/2022 9:19 AM EDT): Pt has chronic pain syndrome. Multiple work up are normal. I explained different treatment strategies for fibromyalgia. Continue Lyrica 150mg bid There is moderate evidence for efficacy for aerobic exercise, cognitive behavioral therapy, patient education, and group therapy. There is also evidence for acupuncture, hypnotherapy, biofeedback and balneotherapy. There is some weaker evidence for chiropractic therapy, massage, electrotherapy and ultrasound. There is no evidence that trigger point injections or opioids are beneficial in fibromyalgia. Pharmacologic options include muscle relaxants, gabapentin, pregabalin, and duloxetine, but are the lest effective of all strategies. Pt was counseled on the importance of exercise, adequate sleep, control of depression and or anxiety and stress management. Assessment & Plan (08/27/2022 8:57 AM EDT): Pt has chronic pain syndrome. Multiple work up are normal. I explained different treatment strategies for fibromyalgia. Continue Lyrica 150mg bid There is moderate evidence for efficacy for aerobic exercise, cognitive behavioral therapy, patient education, and group therapy. There is also evidence for acupuncture, hypnotherapy, biofeedback and balneotherapy. There is some weaker evidence for chiropractic therapy, massage, electrotherapy and ultrasound. There is no evidence that trigger point injections or opioids are beneficial in fibromyalgia. Pharmacologic options include muscle relaxants, gabapentin, pregabalin, and duloxetine, but are the lest effective of all strategies. Pt was counseled on the importance of exercise, adequate sleep, control of depression and or anxiety and stress management. Gastroesophageal reflux disease 10/22/2021 Vitamin D deficiency 10/22/2021 Mild intermittent asthma 12/08/2016 Overview (03/25/2024): Well-controlled on Ventolin HFA 108 (90 Base) MCG/ACT inhaler Assessment & Plan (03/25/2024 10:19 AM EST): Well-controlled on Ventolin HFA 108 (90 Base) MCG/ACT inhaler Carpal tunnel syndrome 09/27/2012 Overview (06/05/2023): No improvement with conservative management, NSAID's, or braces. She has carpel tunnel syndrom documented from 2011. 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 Seen by hand specialist Ishan Wyman PA-C 03/30/23: Since the patient has been symptomatic for several months and it is impacting their daily life, the decision was made to undergo right carpal tunnel release with Dr. Alcala. S/p Right carpal tunnel release on 06/05/23, recovering well. Assessment & Plan (06/05/2023 10:49 AM EDT): No improvement with conservative management, NSAID's, or braces. She has carpel tunnel syndrom documented from 2011. 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 Seen by hand specialist Ishan Wyman PA-C 03/30/23: Since the patient has been symptomatic for several months and it is impacting their daily life, the decision was made to undergo right carpal tunnel release with Dr. Alcala. S/p Right carpal tunnel release on 06/05/23, recovering well. Assessment & Plan (12/01/2022 9:18 AM EDT): No improvement with conservative management, NSAID's, or braces. She has carpel tunnel syndrom documented from 2011. 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 Referral to hand specialist place 12/01/2022. Assessment & Plan (10/16/2022 11:53 AM EDT): No improvement with conservative management, NSAID's, or braces. She has carpel tunnel syndrom documented from 2011. Will check status of nerve conduction study. F/u 6 weeks. Dyslipidemia 02/27/2012 Overview (03/31/2024): Lab Results Component Value Date CHOL 135 03/29/2024 CHOL 120 12/28/2023 CHOL 245 (H) 07/13/2023 TRIG 119 03/29/2024 TRIG 134 12/28/2023 TRIG 231 (H) 07/13/2023 TRIG 173 (H) 08/27/2022 HDL 32 (L) 03/29/2024 HDL 28 (L) 12/28/2023 HDL 35 (L) 07/13/2023 LDLCHOLCAL 80 03/29/2024 LDLCHOLCAL 66 12/28/2023 LDLCHOLCAL 164 (H) 07/13/2023 -continue lifestyle modification -ASCVD risk 16%, intermediate risk. -atorvastatin 40mg started with LDL at goal Assessment & Plan (12/28/2023 9:35 AM EDT): Lab Results Component Value Date CHOLESTEROL 230 (H) 08/27/2022 LDLCHOL 163 (H) 08/27/2022 LDLCHOL 159 (H) 02/08/2021 LDLCHOL 164 (H) 12/09/2019 LDLCHOL 164 (H) 12/09/2019 TRIG 231 (H) 07/13/2023 TRIG 173 (H) 08/27/2022 HDLCHOL 34 (L) 08/27/2022 CHOLHDLRAT 6.8 (H) 08/27/2022 -ASCVD risk 16%, intermediate risk. -atorvastatin 40mg started with goal LDL < 100, recheck FLP LFTs 6 weeks -Ordered repeat FLP and LFT's. Assessment & Plan (12/01/2022 9:05 AM EDT): Lab Results Component Value Date CHOLESTEROL 230 (H) 08/27/2022 LDLCHOL 163 (H) 08/27/2022 LDLCHOL 159 (H) 02/08/2021 LDLCHOL 164 (H) 12/09/2019 LDLCHOL 164 (H) 12/09/2019 TRIG 173 (H) 08/27/2022 HDLCHOL 34 (L) 08/27/2022 CHOLHDLRAT 6.8 (H) 08/27/2022 Diet controlled, no indication for statin at this time. -continue lifestyle modifications Assessment & Plan (08/27/2022 9:32 AM EDT): Lab Results Component Value Date CHOLESTEROL 229 (H) 02/08/2021 LDLCHOL 159 (H) 02/08/2021 LDLCHOL 164 (H) 12/09/2019 LDLCHOL 164 (H) 12/09/2019 HDLCHOL 34 (L) 02/08/2021 CHOLHDLRAT 6.7 (H) 02/08/2021 Diet controlled, no indication for statin at this time. Resolved Problems Problem Noted Date Diagnosed Date Resolved Date Moderate major depression 07/14/2023 Assessment & Plan (07/14/2023 3:52 PM EDT): PROGRESS NOTE: ID: Jodi is a 53 y.o. straight-identified cis-female (pronouns she/her/hers) with No previous hx of MH dx or sx No previous hx of MH services who presents for Anxiety and Depression. Hx of trauma in childhood and adulthood. During IBH Consult Jodi presenting with depressed mood, loss of interests/pleasure , changes in sleep difficulty falling asleep and difficulty staying asleep , trouble concentrating, fatigue/loss of energy, worthlessness and excessive worry/anxiety, difficulty controlling worry, easily fatigued, difficulty concentrating/Mind going blank , irritability, muscle tension, and sleep disturbance difficulty falling asleep and difficulty staying asleep ; for a period of 18+ mo, for all symptoms in the context of mother passed 7 years ago and she was in charge of her siblings and her children, currently only one working in her household and concern about sibling mentally ill . PLAN: New/Additional Services needed Off-site services for Behavioral Health Integration Plan External OP therapy referral and OP psychiatry Referral Patient Self Plan Patient to utilize skills provided in intervention , Comply with medication , and Patient to engage in OP therapy Compression fracture of vertebral column 12/17/2021 07/10/2023 Nicotine dependence 10/22/2021 07/04/19 23 Gastritis 02/27/2012 03/31/2024 Encounters Date Type Department Care Team Description 07/11/2024 9:45 AM EDT Office Visit [facility] [address] [place] [phone] Karina Wood MD Abnormal CT of the abdomen (Primary Dx); Atherosclerotic vascular disease; Positive depression screening; Tobacco abuse; Chronic midline back pain, unspecified back location; Prediabetes 07/11/2024 Travel 07/10/2024 Refill [facility] [address] [place] [address] Karina Wood MD Gastroesophageal reflux disease, unspecified whether esophagitis present 07/06/2024 Telephone [facility] [address] [place] [address] Karina Wood MD chart prep 06/28/2024 Refill [facility] [address] [place] [address] Karina Wood MD Fibromyalgia 06/15/2024 Telephone [facility] [address] [place] [address] Kairna Wood MD Thursday [facility] 05/27/2024 Telephone [facility] [address] [place] [address], [place] [address] Karina Wood MD Results 05/25/2024 Orders Only [facility] [place] [address] Karina Wood MD 05/20/2024 Telephone [facility] [place] [address] Karina Wood MD Schedule appt for Thursday pain group 05/20/2024 Population Health Risk Score [facility] ([facility] Department [address] [place] [phone] Provider, Population Health Generic 05/16/2024 11:00 AM EDT Office Visit [facility] [place] [address] Raya Jarquin MD Fibromyalgia (Primary Dx) 05/16/2024 Travel 05/11/2024 11:15 AM EST Office Visit [address] [address] Karina Wood MD Dyslipidemia (Primary Dx); Transaminitis; Total body pain; Fibromyalgia; Abnormal CT of the abdomen; Chronic pain syndrome; MARIA ISABEL positive; Screening mammogram for breast cancer 05/11/2024 Travel 05/10/2024 Refill [facility] [place] [place] [address] Karina Wood MD Fibromyalgia 05/04/[address] [address] Karina Wood MD Scheduling for pain group 04/13/2024 11:00 AM EST Office Visit [facility] [place] [address] Karina Wood MD Low back pain at multiple sites (Primary Dx); Encounter for immunization 04/13/2024 Travel from Last 3 Months Immunizations Name Administration Dates Next Due Hep A, Adult 04/13/2024 Hep B, adult 08/27/2022,12/16/2018,09/23/2018 Influenza injectable quadriv alent IIV4 with preservative 12/04/2016,01/03/2016 Influenza injectable quadriv alent preservative free 12/01/2022,12/12/2021,12/26/2020,12/08,12/16/2018,02/08/2018,05/02/2015 Influenza, IIV3, injectable 12/07/2013, 8,03/26/2005 Influenza, Split (incl. malcolm fied surface antigen) 02/27/2012 Influenza, seasonal, injecta ble, preservative free 12/28/2023 Moderna Covid-19 Vaccine 12+ 02/14/2021,08/08/19 21,07/11/2020 Pfizer Covid-19 Vaccine 12+ 12/28/2023, 4 Pneumococcal Conjugate PCV 20 08/27/2022 Pneumococcal Polysaccharide PPSV23 09/08/2011 Pneumococcal, Unspecified 09/08/2011 TD (adult), 2 Lf tetanus tox oid, preservative free, adsorbed 01/20/2006 Td (adult), 5 Lf tetanus tox oid, preservative free, adsorbed 12/25/2014 Tdap 09/08/2011 Family History Medical History Relation Name Comments Hypertension Mother Liver cancer Mother Relation Name Status Comments Mother Social History Tobacco Use Types Packs/Day Years Used Date Smoking Tobacco: Every Day Cigarettes Passive Smoke Exposure: Current Smokeless Tobacco: Never Tobacco Cessation:Ready to Q uit: Not Asked; Counseling Given: Not Answered Alcohol Use Standard Drinks/Week Comments Never 0 (1 standard drink = 0.6 oz pur e alcohol) Alcohol Answer Date Recorded Frequency of Alcohol Consumption Not on file 12/28/2023 Average Number of Drinks Not on file 024 Frequency of Binge Drinking Not on file 12/08 Score 0 12/28/2023 Depression Answer Date Recorded Patient Health Questionnaire-9 Score 11 03/25/2024 Patient Health Questionnaire-9 Score 11 03/25/2024 Last PHQ-9: Questionnaire Data Not on file 0 03/25/2024 Housing Stability Answer Date Recorded What is your housing situation today? I have octavio akins 12/21/[address] you li ve. Do you have problems with any of the following? None of the above 12/21/2022 Food Insecurity Answer Date Recorded Within the past 12 months, y ou worried that your food would run out before you got money to buy more: Never True 05/11/2024 Within the past 12 months,th e food you bought just didn't last and you didn't have enough money to get more: Never True 07/2024 Transportation Answer Date Recorded In the past 12 months, has l ack of transportation kept you from medical appts, meetings, work or from getting things needed for daily living? No 12/21/2022 Utilities Answer Date Recorded In the past 12 months, has t he electric, gas, oil or water company threatened to shut off services in your home? No 12/21/2022 Depression Answer Date Recorded Patient Health Questionnaire-2 Score 4 03/25/2024 Internet Access Answer Date Recorded Internet Access Q1 No 05/11/2024 Internet Access Q2 I do not want or need it 07/2024 Comments Unknown Sex and Gender Information Value Date Recorded Sex Assigned at Female 01/06/2022 10:14 AM EDT Legal Sex Female 10:14 AM EDT Gender Identity Female 01/06/2022 10:14 AM EDT Sexual Orientation Straight 01/06/2022 10 :14 AM EDT Last Filed Vital Signs Vital Sign Reading Time Taken Comments Blood Pressure 133/74 07/11/2024 9:45 AM EDT Pulse 70 07/11/2024 9:45 AM EDT Temperature 36.2 ??C (97.1 ??F) 07/11/2024 9:45 AM ED T Respiratory Rate 21 07/11/2024 9:45 AM EDT Oxygen Saturation 98% 07/11/2024 9:45 AM EDT Inhaled Oxygen Concentration - - Weight 100 kg (221 lb) 07/11/2024 9:45 AM EDT Height 170.2 cm (5' 7 ) 07/11/2024 9:45 AM EDT Body Mass Index 34.61 07/11/2024 9:45 AM EDT Plan of Treatment Health Maintenance Due Date Last Done Comments CT Colonography 1971 FIT DNA/Cologuard 1971 FIT 1971 FOBT 1970 Sigmoidoscopy 1971 Zoster Vaccines (1 of 2) 2021 Diabetes: Hemoglobin A1C 06/04/2024 025, 06/05/2023, 03/27/2022, Additional history exists Mammogram 07/08/2024 07/09/2023, 02/07, 02/26/2021, Additional history exists DTaP/Tdap/Td Vaccines (3 - Td or Tdap) 12/25/2024 12/25/2014, 09/08/2011, 01/20/2006 Alcohol/Substance Use Screening 12/27/2024 12/28/2023 Depression Screening 03/25/2025 03/25/2024, 03/25/19 SDOH Screening 05/11/2025 05/11/2024 Tobacco Screening 07/11/2025 07/11/2024 Cervical Cancer Screening 12/26/2025 HPV/Cotest 12/26/2025 12/26/2020 Pap Smear 12/26/2025 12/26/2020, 12/26/2020 Colonoscopy 07/12/2026 07/12/2021 Colorectal Cancer Screening 07/12/2026 Lipid Panel 03/29/2029 03/29/2024, 12/08, 07/13/2023, Additional history exists RSV Patients and Patients Aged 60 years or older (1 - 1-dose 75+ series) 2046 HIV Screening Completed 08/27/2022, 12/09/2019 Hepatitis B Vaccines Completed 08/27/2022, 12/16/2018, 09/23/2018 Hepatitis C Screening Completed 08/27/2022, 017 Pneumococcal Vaccine: 50+ Years Completed 08/27/2022, 09/08/2011, 09/08/2011 COVID-19 Vaccine Completed 12/28/2023, , 02/14/2021, Additional history exists Influenza Vaccine Completed 12/28/2023, , 12/12/2021, Additional history exists Hepatitis A Vaccines Aged Out 04/13/2024 No long er eligible based on patient's age to complete this topic HIB Vaccines Aged Out No longer eligi ble based on patient's age to complete this topic HPV Vaccines Aged Out No longer eligi ble based on patient's age to complete this topic IPV Vaccines Aged Out No longer eligi ble based on patient's age to complete this topic Meningococcal Vaccine Aged Out No nhung artie eligible based on patient's age to complete this topic RSV under 20 months Aged Out No longe r eligible based on patient's age to complete this topic Rotavirus Vaccines Aged Out No longer eligible based on patient's age to complete this topic Goals Goal Patient Goal Type Associated Problems Recent Progress Patient-Stated? Author Smoking cessation General Amy Zazueta PharmD Procedures Procedure Name Priority Date/Time Associated Diagnosis Comments HEMOGLOBIN A1C Routine 07/11/2024 10:[address] ABDOMEN PELVIS W CONTRAST Routine 05/26/2024 3:[address] of the abdomen POCT CREATININE GFR Routine 05/25/2024 1 0:31 AM EDT LIPID PANEL, STANDARD Routine 03/29/2024 9:40 AM EST Dyslipidemia BI MAMMOGRAM SCREENING TOMOSYNTHESIS BILATERAL Routine 07/09/2023 9:45 AM EDT Breast cancer screening by mammogram HEPATITIS C AB W/REFL TO HCV RNA, QN, PCR Routine 08/27/2022 10:12 AM EDT Encounter for hepatitis C screening test for low risk patient HIV 1/2 ANTIGEN/ANTIBODY, FOURTH GENERATION W/RFL Routine 08/27/2022 10:12 AM EDT Routine screening for STI (sexually transmitted infection) HM COLONOSCOPY Routine 07/12/2021 HM PAP/HPV Routine 12/26/2020 PAP SMEAR Routine 12/26/2020 12:00 AM EDT from Last 3 Months or Most Recently Relevant to Health Maintenance Results * (ABNORMAL) Hemoglobin A1c (07/11/2024 10:22 AM EDT) Hemoglobin A1c 6.2(H) <6.0 % [facility] Comment:Hemoglobin A1C Refer ence Range Adults: 4.8 - 6.0 % Non diabetic: < 6.0 % Goal: < 7.0 %Additional Action Suggested: > 8.0 %Note: Hemoglobin A1c results are invalid for patients with abnormal amounts of HbF. Blood transfusions may impact the HbA1c concentration in the patient sample. Estimated Average Glucose 131 mg/dL [facility] Comment:eAG = Estimated ave rage glucose which is %A1C expressed asaverage glucose, using the formula of the [id number] Glucose study (ADAG), Diabetes Care, Vol.31,#8,Oct. 2007 Blood Venous blood specimen / Unknown 07/11/2024 10:22 AM EDT 07/11/2024 11:08 AM EDT us Karina Wood MD LAB BLOOD ORDERABLES Final Result [facility] [address] [place] [address] [phone] * CT Abdomen Pelvis w/ Contrast (05/26/2024 3:30 PM EDT) Anatomical Region Laterality Modality Body, Pelvis, Abdomen Computed T omography 05/26/2024 3:30 PM EDT Narrative 05/26/2024 3:31 PM EDT ? [facility] ?[address] ?[place] [address] ? CT Scan Report ? Signed ? Patient: Jodi Scott N ?MR#: [id number] ?? 98 ? : 1970 ?Acct:[id number] ? Age/Sex: 54 / F ?ADM Date: 05/25/24 ? Loc: HO.CT ? Attending Dr: Karina Wood MD ? Ordering Physician: Karina Wood MD ?? Date of Service: 05/25/24 ?? Procedure(s): CT abdomen pelvis w IV con ?? Accession Number(s): [id number] ? cc: Karina Wood MD ? Report Number: ?? [id number]: Total DLP = 1075.00 mGy-cm ? CLINICAL HISTORY: PAIN ? CT abdomen and pelvis with contrast ? Comparison: CT/SR - CT ABDOMEN PELVIS WO IV CON - 02/20/24 23:27 EST ?? CT - ABD PELV W IV CON ONLY [id number] - 08/26/18 18:31 EDT ?? CT/REG/SR - ABD PELV W IV CON ONLY [id number] - 08/26/18 18:18 EDT ? Findings: ?? No consolidation at the lung bases. ? Unremarkable gallbladder and bladder. The solid organs are normal. ? No bowel dilation. Unchanged increased submucosal fat in the proximal ?? colon which could be secondary to body habitus or chronic inflammation. A ?? normal appendix is identified. ? No aneurysm. Moderate calcified atherosclerotic disease. ?? No lymphadenopathy. Mild infiltration of the mesentery in the left upper ?? quadrant with associated nonenlarged lymph nodes, similar to the prior ?? study, which may indicate mesenteric panniculitis. ?? No ascites. ? No acute osseous abnormality. ? Impression: ?? No acute findings. ? This document has been electronically signed by: Chrissie Fuentes MD ?? on 05/26/2024 15:30:16 ? Dictated By: ?Chrissie Wheeler MD ? Signed By: ?<Electronically signed by Chrissie Wheeler MD in [place]> ? 05/26/24 1530 ? DD/ 1530 ? TD/TT: 05/26/24 1530 ? Batch Plant Supervisor: ? Procedure Note Ashlie, Dorian - 05/26/[address] [place] [address] [address] Scan Report Signed Patient: Jodi Scott NMR#: [id number] 98 : 1970Acct:[id number] Age/Sex: 54 / FADM Date: 05/25/24 Loc: HO.CT Attending Dr: Karina Wood MD Ordering Physician: Karina Wood MD Date of Service: 05/25/24 Procedure(s): CT abdomen pelvis w IV con Accession Number(s): [id number] cc: Karina Wood MD Report Number: [id number]: Total DLP = 1075.00 mGy-cm CLINICAL HISTORY: PAIN CT abdomen and pelvis with contrast Comparison: CT/SR - CT ABDOMEN PELVIS WO IV CON - 02/20/24 23:[address] - ABD PELV W IV CON ONLY [id number] - 08/26/18 18:[address]/REG/SR - ABD PELV W IV CON ONLY [id number] - 08/26/18 18:18 EDT Findings: No consolidation at the lung bases. Unremarkable gallbladder and bladder. The solid organs are normal. No bowel dilation. Unchanged increased submucosal fat in the proximal colon which could be secondary to body habitus or chronic inflammation. A normal appendix is identified. No aneurysm. Moderate calcified atherosclerotic disease. No lymphadenopathy. 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 No ascites. No acute osseous abnormality. Impression: No acute findings. This document has been electronically signed by: Chrissie Fuentes MD on 05/26/2024 15:30:16 Dictated By: Chrissie Wheeler MD Signed By: <Electronically signed by Chrissie Wheeler MD in OV> 05/26/24 1530 DD/ 1530 TD/TT: 05/26/24 1530 Batch Plant Supervisor: Karina Wood MD IMG CT PROCEDURES Final Re sult * POCT Creatinine GFR (05/25/2024 10:31 AM EDT) POCT Creatinine 0.9 0.5 - 1.4 mg/dL [facility] GFR POC >60 [facility] Comment:Chronic Kidney Disea se: Estimated GFR < 60 mL/min/1.72k3Kxbyac Kidney Disease: Estimated GFR < 15 mL/min/1.73m2 05/25/2024 10:3 1 AM EDT 05/25/2024 12:57 PM EDT Narrative [facility] - 05/25/2024 1:00 PM EDT [id number] Karina Wood MD LAB POINT OF CARE TEST DOC KED DEVICE ORDERABLES Final Result [facility] [address] [place] [phone] * (ABNORMAL) Lipid Panel, Standard (03/29/2024 9:40 AM EST) Triglycerides 119 <150 mg/dL [facility] Comment:Desirable Triglyceri de: less than 150 mg/dLBorderline High Triglyceride 150-199 mg/dLHigh Triglyceride: 200-499 mg/dLVery High Triglyceride: greater than or equal to 5OO mg/dL Cholesterol 135 <200 mg/dL [facility] Comment:Desirable Cholestero l: less than 200 mg/dLBorderline High Cholesterol: 200-239 mg/dLHigh Cholesterol: greater than 239 mg/dL LDL Cholesterol Calculated 80 <100 mg/dL [facility] Comment:Desirable LDL: less than 100 mg/dLNear Optimal/Above Optimal LDL: 110- 129 mg/dLBorderline High LDL: 130-159 mg/dLHigh LDL: 160-189 mg/dLVery High LDL: greater than or equal to 190 mg/dL HDL Cholesterol 32(L) >40 mg/dL [facility] Comment:Desirable HDL: great er than 40 mg/dL Note: This HDL assay may give artificially low results in patients with liver disease. Blood Venous blood specimen / Unknown 03/29/2024 9:40 AM EST 03/29/2024 11:17 AM EST Karina Wood MD LAB BLOOD ORDERABLES Final Result [facility] [address] [place] [phone] * BI Mammogram Screening Tomosynthesis Bilateral (07/09/2023 9:45 AM EDT) Anatomical Region Laterality Modality Breast Bilateral Mammography 07/09/2023 9:45 AM EDT Narrative 07/28/2023 11:03 AM EDT ? [facility] ? [address] ?[place] [address] ? Mammography Report ? Signed ? Patient: Scott,Jodi N ?MR#: [id number] ?? 98 ? : 1970 ?Acct:[id number] ? Age/Sex: 53 / F ?ADM Date: //24 ? Loc: HO.MAMMO ? Attending Dr: Karina Wood MD ? Ordering Physician: Karina Wood MD ?Results: 2B ?? enign Findings ? Date of Service: 07/09/23 ?Follow Up: 1 Year From Orig ?? inal Mammogram ? Procedure(s): MM tomosynthesis screening BI ?? Accession Number(s): [id number] ? cc: Karina Wood MD ? EXAMINATION: ?? MM SCREENING DIGITAL BREAST TOMOSYNTHESIS, BILATERAL ? CLINICAL INFORMATION: ? Screening. Asymptomatic. ? COMPARISON: ?? Mammography: 02/26/2021, 12/16/2018, 02/19/2015, 08/07/2014, ?? 07/09/2014; right breast ultrasound 08/07/2014. ?? TECHNIQUE: ?? Digital breast tomosynthesis is performed in both the craniocaudal and ?? mediolateral oblique views along with computer-aided detection (CAD). ?? Synthesized 2D images are generated from the tomosynthesis. ? FINDINGS: ?? There are scattered areas of fibroglandular density (ACR BI-RADS breast ?? composition Category b). ? Stable intramammary lymph node right breast 12:00 axis, anterior one ?? third. ??There are no suspicious masses, suspicious grouped ?? calcifications, or areas of architectural distortion in either breast. ?? The parenchymal pattern is stable from prior exams. There are no ?? suspicious skin or axillary abnormalities. ? MM/MM tomosynthesis screening BI ?? IMPRESSION: ?? No mammographic evidence of malignancy. Significant interval change. ? ASSESSMENT: ? BI-RADS BI-RADS 2 - Benign Findings ? RECOMMENDATION: ?? Routine annual mammography screening. ? 1 year F/U ? This examination should not preclude the clinical evaluation of a ?? suspicious palpable abnormality. ? This patient's information was entered into a reminder system with a ?? target due date for their next mammogram. ? Dictated By: ?Abdias Luna MD ? Signed By: ?<Electronically signed by Abdias Luna MD in OV> ?07/28/23 1100 ? DD/ 0945 ? TD/TT: ? Batch Plant Supervisor: ? Procedure Note Donotmaryinterpreter, Image - 07/28/2023 [facility] [address] [place] [address] Mammography Report Signed Patient: Jodi Scott NMR#: [id number] 98 : 1970Acct:[id number] Age/Sex: 53 / FADM Date: 07/09/23 Loc: HO.MAMMO Attending Dr: Karina Wood MD Ordering Physician: Karina Wood MDResults: 2B enign Findings Date of Service: 07/09/23Follow Up: 1 Year From Orig inal Mammogram Procedure(s): MM tomosynthesis screening BI Accession Number(s): [id number] cc: Karina Wood MD EXAMINATION: MM SCREENING DIGITAL BREAST TOMOSYNTHESIS, BILATERAL CLINICAL INFORMATION: Screening. Asymptomatic. COMPARISON: Mammography: 02/26/2021, 12/16/2018, 02/19/2015, 08/07/2014, 07/09/2014; right breast ultrasound 08/07/2014. TECHNIQUE: Digital breast tomosynthesis is performed in both the craniocaudal and mediolateral oblique views along with computer-aided detection (CAD). Synthesized 2D images are generated from the tomosynthesis. FINDINGS: There are scattered areas of fibroglandular density (ACR BI-RADS breast composition Category b). Stable intramammary lymph node right breast 12:00 axis, anterior one third. There are no suspicious masses, suspicious grouped calcifications, or areas of architectural distortion in either breast. The parenchymal pattern is stable from prior exams. There are no suspicious skin or axillary abnormalities. MM/MM tomosynthesis screening BI IMPRESSION: No mammographic evidence of malignancy. Significant interval change. ASSESSMENT: BI-RADS BI-RADS 2 - Benign Findings RECOMMENDATION: Routine annual mammography screening. 1 year F/U This examination should not preclude the clinical evaluation of a suspicious palpable abnormality. This patient's information was entered into a reminder system with a target due date for their next mammogram. Dictated By: Abdias Luna MD Signed By: <Electronically signed by Abdias Luna MD in OV> 07/28/23 1100 DD/ 0945 TD/TT: Batch Plant Supervisor: Karina Wood MD IMG BI PROCEDURES Final Re sult * Hepatitis C Antibody with Reflex to HCV, RNA, Quantitative, Real-Time PCR (08/27/2022 10:12 AM EDT) Hepatitis C Antibody NON-REACT FARHAN NON-REACT FARHAN [facility] Comment: HCV antibody was non-reactive. There is no laboratory evidence of HCV infection. In most cases, no further action is required. However, if recent HCV exposure is suspected, a test for HCV RNA (test code 45220) is suggested. For additional information please refer to http://education.[employer].Yodle/faq/ODU70t2 (This link is being provided for informational/ educational purposes only.) Blood Venous blood specimen / Unknown 08/27/2022 10:12 AM EDT 08/27/2022 10:13 AM EDT Narrative [facility] - 09/01/2022 12:38 AM EDT FASTING:YES REC'D IN [place]O FASTING: YES Karina Wood MD LAB BLOOD ORDERABLES Final Result [facility] [address] [place] [address], [place] [address] [facility] [address] [place] [address] * HIV-1/2 Antigen and Antibodies, Fourth Generation, with Reflexes (08/27/2022 10:12 AM EDT) HIV Antigen/Antibody, 4th Generation NON-REAC TIVE NON-REAC TIVE [facility] Comment: HIV-1 antigen and HIV-1/HIV-2 antibodies were not detected. There is no laboratory evidence of HIV infection. PLEASE NOTE: This information has been disclosed to you from records whose confidentiality may be protected by state law. ??If your state requires such protection, then the state law prohibits you from making any further disclosure of the information without the specific written consent of the person to whom it pertains, or as otherwise permitted by law. A general authorization for the release of medical or other information is NOT sufficient for this purpose. ?? For additional information please refer to http://education.[employer]/faq/IEH773 (This link is being provided for informational/ educational purposes only.) The performance of this assay has not been clinically validated in patients less than 2 years old. Blood Venous blood specimen / Unknown 08/27/2022 10:12 AM EDT 08/27/2022 10:13 AM EDT Narrative [facility] - 09/01/2022 12:38 AM EDT FASTING:YES REC'D IN PIC[place]O FASTING: YES Karina Wood MD LAB BLOOD ORDERABLES Final Result [facility] [address], [place] [address] [facility] [address] [place] [address] * Hm Colonoscopy (07/12/2021) Pathologist [facility] Colonoscopy tubular adenoma with Dr. Jordan Dhaliwal Mirtha Boyce MD HEALTH MAINTENANCE Final Result * Hm Pap Smear (12/26/2020) Pap Negative for intraephithelial lesion or malignancy Negative for intraephithelial lesion or malignancy, Other HPV Not Detected Undetected, Indeterminate, Quantitative, Not Detected Historical Provider HEALTH MAINTENANCE Final Result * Pap Smear (12/26/2020 12:00 AM EDT) Swab us Historical Provider LAB CYTOLOGY ORDERABLES F inal Result IMAGING from Last 3 Months or Most Recently Relevant to Health Maintenance Insurance [facility] C3 HSN FULL Care Teams Mixer Operator Vacuum Pan Salt Relationship Specialty Start Date End Date Nina, MD Karina [address] [place] [address] PCP - General Family Medicine 10/03/16 Marisel Alcala MD [address] [place] [address] Orthopaedic Surgery 03/31/24 Janel Lai [address] 3rd [place] [address] Gastroenterology 03/31/24
--- OUTSIDE RECORDS SUMMARY | 2024-07-11 11:42 | XMS_ITS | Encounter Summary ---
Author Organization [email or web address] Address [address] [facility] 7t [place] [address] Care Team Providers Care Photography Spotter Name Role Phone Karina Wood MD Primary Care Provider [phone] Amy Shukla PharmD Unavailable Marisel Alcala MD Unavailable [phone] Janel Lai Unavailable Encounter Details Date Type Department Care Team (Late st Contact Info) Description 04/11/2022 Abstract [facility] MEDICINE [address] [place] [address] Karina Wood MD [address] [place], [place] [phone] Social History Tobacco Use Types Packs/Day Years [...] on file documented as of this encounter Procedures Procedure Name Priority Date/Time Associated Diagnosis Comments COLONOSCOPY Routine 07/12/2021 MAMMOGRAPHY Routine 02/26/2021 PAP SMEAR Routine 12/26/2020 12:00 AM EDT documented in this encounter Results * Colonoscopy (07/12/2021) Colonoscopy tubular adenoma with Dr. Ortega Historical Provider HEALTH MAINTENANCE Final Result * Mammography (02/26/2021) HM Mammogram BIRADS 1 Anatomical Region Laterality Modality Other Historical Provider HEALTH MAINTENANCE Final Result * Pap Smear (12/26/2020 12:00 AM EDT) Swab Historical Provider LAB CYTOLOGY ORDERABLES F inal Result IMAGING documented in this encounter Visit Diagnoses Not on filedocumented in this encounter Care Teams Photography Spotter Relationship Specialty Start Date End Date Karina Wood MD [address] [place] [address] PCP - General Family Medicine 10/03/16 Amy Shukla, MalvinD [address] [place] [address] Pharmacist Internal Medicine 07/17/22 01/05/23 Marisel Alcala MD [address] [place] [address] Orthopaedic Surgery 03/31/24 Janel Lai [address]rd [place] [address] Gastroenterology 03/31/24 documented as of this encounter
--- OUTSIDE RECORDS SUMMARY | 2024-07-11 11:43 | XMS_ITS | Encounter Summary ---
Author Organization [employer] Address [address] [facility] 7t [place] [address] Care Team Providers Care Vacuum Evaporation Operator Name Role Phone Karina Wood MD Primary Care Provider [phone] Marisel Alcala MD Unavailable [phone] Janel Lai Unavailable Reason for Visit * Reason Onset Date Comments Nurse Triage 12/08/2023 Encounter Details Date Type Department Care Team (Late st Contact Info) Description 12/08/2023 Telephone [facility] MEDICINE [address] [place], [place] [phone] Karina Wood MD [address] [place], [place] [phone] Nurse Triage Social History Tobacco Use Types Packs/Day Years Used Date Smoking Tobacco: Every Day Cigarettes Passive Smoke Exposure: Current Smokeless Tobacco: Never Alcohol Use Standard Drinks/Week Comments Never 0 (1 standard drink = 0.6 oz pur e alcohol) Depression Answer Date Recorded Patient Health Questionnaire-9 Score 14 07/14/2023 Patient Health Questionnaire-9 Score 14 07/14/2023 Last PHQ-9: Questionnaire Data Not on file 0 07/14/2023 Housing Stability Answer Date Recorded What is your housing situation today? I have octavio akins 12/21/[address] you li ve. Do you have problems with any of the following? None of the above 12/21/2022 Food Insecurity Answer Date Recorded Within the past 12 months, y ou worried that your food would run out before you got money to buy more: Sometimes True 2023 Within the past 12 months,th e food you bought just didn't last and you didn't have enough money to get more: Sometimes True 05/27/2023 Transportation Answer Date Recorded In the past [...] Answer Date Recorded Patient Health Questionnaire-2 Score 6 07/14/2023 Comments Unknown Sex and Gender Information Value Date Recorded Sex Assigned at Female 01/06/2022 10:14 AM EDT Legal Sex Female 10:14 AM EDT Gender Identity Female 01/06/2022 10:14 AM EDT Sexual Orientation Straight 01/06/2022 10 :14 AM EDT documented as of this encounter Miscellaneous Notes * Telephone Encounter - Kelsey Thorne RN - 12/08/2023 1:11 PM EDT Triage call Pt reports upper abdominal discomfort with eating. Pt has dx of GERD Pt is advised to increase liquids, drink coffee, one cup in morning with breakfast. Cut back on soda during the day and replace with juice and 1/2 water. Try not to eat large meal at 930pm at night, try to have dinner by 8pm . Pt denies constipation. Pt is advised to try maalox or mylanta, follow instructions on bottle , when feels some mild discomfort. Home care is reviewed with Pt. Pt agrees with disposition, will try these suggestions and if needed will call back. Protocol Used: Abdominal Pain - Upper (Adult) Protocol-Based Disposition: Home Care Positive Triage Question: * Intermittent pains shoot into chest, with sour taste in mouth, AND symptoms same as previously diagnosed reflux and not tried antacids * All higher-acuity triage questions were negative Care Advice Discussed: * Reassurance and Education - Stomach Pain * Antacid Medicine * Drink Clear Fluids * Diet * Food Recommendations to Reduce Reflux * Reasons To Call Back - Severe pain present over 1 hour - Constant pain present over 2 hours - Moderate pains come and go for more than 24 hours - Mild pains come and go for more than 72 hours - You become worse * Telephone Encounter - Meghan Schmitt - 12/08/2023 12:47 PM EDT Symptom: Abdominal Pain - Female - Not Outcome: Schedule an appointment to be seen within 24 hours Reason: Caller denied all higher acuity questions The caller accepted this outcome. documented in this encounter Plan of Treatment Not on file documented as of this encounter Goals Goal Patient Goal Type Associated Problems Recent Progress Patient-Stated? Author Smoking cessation General No Amy Verdugo, PharmD documented as of this encounter Visit Diagnoses Not on filedocumented in this encounter Additional Health Concerns Assessment Noted Time PHQ-9 Depression Total Score: 14 024 3:23 PM EDT documented as of this encounter Care Teams Vacuum Evaporation Operator Relationship Specialty Start Date End Date Karina Wood MD [address] [place] [address] PCP - General Family Medicine 10/03/16 Marisel Alcala MD [address] [place] [address] Orthopaedic Surgery 03/31/24 Janel Lai [address] 3[address] [place] [address] Gastroenterology 03/31/24 documented as of this encounter
--- OUTSIDE RECORDS SUMMARY | 2024-07-11 11:43 | XMS_ITS | Encounter Summary ---
Author Organization [employer] Address 75 [facility] 7t [place] [address] Care Team Providers Care Arcade Game Technician Name Role Phone Karina Wood MD Primary Care Provider [phone] Marisel Alcala MD Unavailable [phone] Janel Lai Unavailable Reason for Visit * Reason Comments Med Refill Encounter Details Date Type Department Care Team (Late st Contact Info) Description 10/04/2023 Refill [facility] MEDICINE [address] [place], [place] [phone] Karina Wood MD [address] [place], [place] [phone] Fibromyalgia Social History Tobacco Use Types Packs/Day Years [...] Author Smoking cessation General No Amy Verdugo, MalvinD documented as of this encounter Visit Diagnoses Diagnosis Fibromyalgia Unspecified myalgia and myositis documented in this encounter Additional Health Concerns Assessment Noted Time PHQ-9 Depression Total Score: 14 024 3:23 PM EDT documented as of this encounter Care Teams Arcade Game Technician Relationship Specialty Start Date End Date Karina Wood MD [address] [place] [address] PCP - General Family Medicine 10/03/16 Marisel Alcala MD [address] [place] [address] Orthopaedic Surgery 03/31/24 Janel Lai [address]rd [place] [address] Gastroenterology 03/31/24 documented as of this encounter
--- OUTSIDE RECORDS SUMMARY | 2024-07-11 11:43 | XMS_ITS | Encounter Summary ---
Author Organization [employer] Address 75 [facility] 7t [place] [address] Care Team Providers Care Retail Reset Merchandiser Name Role Phone Karina Wood MD Primary Care Provider [phone] Marisel Alcala MD Unavailable Janel Lai Unavailable Reason for Visit * Reason Comments Med Refill Encounter Details Date Type Department Care Team (Late st Contact Info) Description 07/10/2024 Refill [facility] MEDICINE [address] [place], [place] [phone] Karina Wood MD [address] [place], [place] [phone] Gastroesophageal reflux disease, unspecified whether esophagitis present Social History Tobacco Use Types Packs/Day Years [...] as of this encounter Visit Diagnoses Diagnosis Gastroesophageal reflux disease, unspecified whether esophagitis present documented in this encounter Additional Health Concerns Assessment Noted Time PHQ-9 Depression Total Score: 11 025 10:09 AM EST documented as of this encounter Care Teams Retail Reset Merchandiser Relationship Specialty Start Date End Date Karina Wood MD [address] [place] [address] PCP - General Family Medicine 10/03/16 Marisel Alcala MD [address] [place] [address] Orthopaedic Surgery 03/31/24 Janel Lai [address]rd [place] [address] Gastroenterology 03/31/24 documented as of this encounter
--- OUTSIDE RECORDS SUMMARY | 2024-07-11 11:43 | XMS_ITS | Encounter Summary ---
Author Organization [employer] Address [address] [facility] 7t [place] [address] Care Team Providers Care Multimedia Designer Name Role Phone Karina Wood MD Primary Care Provider [phone]- [phone] Amy Shukla PharmD Unavailable [phone] Marisel Alcala MD Unavailable [phone] Janel Lai Unavailable Reason for Visit * Reason Comments Med Refill Encounter Details Date Type Department Care Team (Late st Contact Info) Description 08/27/2022 Refill [facility] MEDICINE [address] [place], [place] [phone] Karina Wood MD [address] [place], [place] [phone] Social History Tobacco Use Types Packs/Day Years Used Date Smoking Tobacco: Every Day Cigarettes Smokeless Tobacco: Former Alcohol Use Standard Drinks/Week Comments Never 0 (1 standard drink = 0.6 oz pur e alcohol) Comments Unknown Sex and Gender Information Value Date Recorded Sex Assigned at Female 01/06/2022 10:14 AM EDT Legal Sex Female 10:14 AM EDT Gender Identity Female 01/06/2022 10:14 AM EDT Sexual Orientation Straight 01/06/2022 10 :14 AM EDT COVID-19 Exposure Response Date Recorded In the last 10 days, have yo u been in contact with someone who was confirmed or suspected to have Coronavirus/COVID-19? No / Unsure 08/27/2022 9:01 AM EDT documented as of this encounter Plan of Treatment Not on file documented as of this encounter Goals Goal Patient Goal Type Associated Problems Recent Progress Patient-Stated? Author Smoking cessation General No Amy Verdugo PharmD documented as of this encounter Visit Diagnoses Not on filedocumented in this encounter Care Teams Multimedia Designer Relationship Specialty Start Date End Date Karina Wood MD [address] [place] [address] PCP - General Family Medicine 10/03/16 Amy Shukla, PharmD [address] [place] [address] Pharmacist Internal Medicine 07/17/22 01/05/23 Marisel Alcala MD [address] [place] [address] Orthopaedic Surgery 03/31/24 Janel Lai [address] 3rd [place] [address] Gastroenterology 03/31/24 documented as of this encounter
--- OUTSIDE RECORDS SUMMARY | 2024-07-11 11:43 | XMS_ITS | Encounter Summary ---
Author Organization [employer] Address [address] [facility] 7t [place] [address] Care Team Providers Care Manager Hydraulic Name Role Phone Karina Wood MD Primary Care Provider [phone]- [phone] Marisel Alcala MD Unavailable [phone] Janel Lai Unavailable Reason for Visit * Reason Onset Date Comments FYI 04/04/2024 Encounter Details Date Type Department Care Team (Late st Contact Info) Description 04/04/[address] [facility] MEDICINE [address] [place] [address] Karina Wood MD [address] [place], [place] [phone] FYI Social History Tobacco Use Types Packs/Day Years [...] Access Answer Date Recorded Internet Access Q1 Yes 12/15/2023 Internet Access Q2 Not on file 12/15/2023 Comments Unknown Sex and Gender Information Value Date Recorded Sex Assigned at Female 01/06/2022 10:14 AM EDT Legal Sex Female 10:14 AM EDT Gender Identity Female 01/06/2022 10:14 AM EDT Sexual Orientation Straight 01/06/2022 10 :14 AM EDT documented as of this encounter Miscellaneous Notes * Telephone Encounter - Karina Wood MD - 04/11/2024 9:40 AM EST Tc from pt stating she has a CT Scan she needs done seemingly urgent but has not received a call tohave CT Scan done. Pt states she was advised to contact PCP if she did not receive a call for CT Scan. Please contact pt at [phone]. (Equatorial [place] Speaker) * Telephone Encounter - Roland Lopez - 04/04/2024 9:46 AM EST Tc from pt stating she has a CT Scan she needs done seemingly urgent but has not received a call tohave CT Scan done. Pt states she was advised to contact PCP if she did not receive a call for CT Scan. Please contact pt at [phone]. (Equatorial [place] Speaker) documented in this encounter Plan of Treatment Not on file documented as of this encounter Goals Goal Patient Goal Type Associated Problems Recent Progress Patient-Stated? Author Smoking cessation General No Amy Verdugo, MalvinD documented as of this encounter Visit Diagnoses Not on filedocumented in this encounter Additional Health Concerns Assessment Noted Time PHQ-9 Depression Total Score: 11 03/25/ 025 10:09 AM EST documented as of this encounter Care Teams Manager Hydraulic Relationship Specialty Start Date End Date Karina Wood MD [address] [place] [address] PCP - General Family Medicine 10/03/16 Marisel Alcala MD [address] [place] [address] Orthopaedic Surgery 03/31/24 Janel Lai [address] 3rd [place] [address] Gastroenterology 03/31/24 documented as of this encounter
--- OUTSIDE RECORDS SUMMARY | 2024-07-11 11:43 | XMS_ITS | Encounter Summary ---
Author Organization [employer] Address [address] [facility] 7t [place] [address] Care Team Providers Care Barrel Header Name Role Phone NinaKarina julien MD Primary Care Provider [phone] Marisel Alcala MD Unavailable [phone] Janel Lai Unavailable Encounter Details Date Type Department Care Team (Latest Contact Info) Description 07/11/2024 Travel Social History Tobacco Use Types Packs/Day Years [...] documented as of this encounter Care Teams Barrel Header Relationship Specialty Start Date End Date Karina Wood MD [address] [place] [address] PCP - General Family Medicine 10/03/16 Marisel Alcala MD [address] [place] [address] Orthopaedic Surgery 03/31/24 Janel Lai [address] 3rd [place] [address] Gastroenterology 03/31/24 documented as of this encounter
--- OUTSIDE RECORDS SUMMARY | 2024-07-11 11:43 | XMS_ITS | Encounter Summary ---
Author Organization [employer] Address 75 [facility] 7t [place] [address] Care Team Providers Care Banquet Food Server Name Role Phone Karina Wood MD Primary Care Provider [phone] Marisel Alcala MD Unavailable [phone] Janel Lai Unavailable Encounter Details Date Type Department Care Team (Late st Contact Info) Description 07/15/2023 Orders Only [facility] [address] [place], [place] [phone] Karina Wood MD [address] [place], [place] [phone] Dyslipidemia (Primary Dx) Social History Tobacco Use Types Packs/Day Years [...] [place], MalvinD documented as of this encounter Procedures Procedure Name Priority Date/Time Associated Diagnosis Comments HEPATIC FUNCTION PANEL Routine 12/28/2023 9:55 AM EDT Dyslipidemia LIPID PANEL, STANDARD Routine 12/28/2023 9:55 AM EDT Dyslipidemia documented in this encounter Results * Hepatic Function Panel (12/28/2023 9:55 AM EDT) Bilirubin, Total 0.4 0.0 - 1.0 mg/dL [facility] Bilirubin, Direct 0.1 0.0 - 0.5 mg/dL [facility] Aspartate Amino Transferase 29 5 - 31 U/L [facility] Alanine Aminotransferase 25 0 - 31 U/L [facility] Total Protein 7.2 6.5 - 8.0 g/dL [facility] Albumin Level 4.0 3.5 - 5.0 g/dL [facility] Alkaline Phosphatase 93 39 - 117 U/L [facility] Blood Venous blood specimen / Unknown 12/28/2023 9:55 AM EDT 12/28/2023 12:05 PM EDT Karina Wood MD LAB BLOOD ORDERABLES Final Result Performing Organization Address [facility] Co de Phone Number [facility] [address] [place] [address] [phone] * (ABNORMAL) Lipid Panel, Standard (12/28/2023 9:55 AM EDT) Triglycerides 134 <150 mg/dL [facility] Comment:Desirable Triglyceri de: less than 150 mg/dLBorderline High Triglyceride 150-199 mg/dLHigh Triglyceride: 200-499 mg/dLVery High Triglyceride: greater than or equal to 5OO mg/dL Cholesterol 120 <200 mg/dL [facility] Comment:Desirable Cholestero l: less than 200 mg/dLBorderline High Cholesterol: 200-239 mg/dLHigh Cholesterol: greater than 239 mg/dL LDL Cholesterol Calculated 66 <100 mg/dL [facility] Comment:Desirable LDL: less than 100 mg/dLNear Optimal/Above Optimal LDL: 110- 129 mg/dLBorderline High LDL: 130-159 mg/dLHigh LDL: 160-189 mg/dLVery High LDL: greater than or equal to 190 mg/dL HDL Cholesterol 28(L) >40 mg/dL [facility] Comment:Desirable HDL: great er than 40 mg/dL Note: This HDL assay may give artificially low results in patients with liver disease. Blood Venous blood specimen / Unknown 12/28/2023 9:55 AM EDT 12/28/2023 12:05 PM EDT Karina Wood MD LAB BLOOD ORDERABLES Final Result Performing Organization Address [facility]/ZIP Co de Phone Number [facility] [address] [place] [address] [phone] documented in this encounter Visit Diagnoses Diagnosis Dyslipidemia- Primary Other and unspecified hyperlipidemia documented in this encounter Additional Health Concerns Assessment Noted Time PHQ-9 Depression Total Score: 14 05/2 024 3:23 PM EDT documented as of this encounter Care Teams Banquet Food Server Relationship Specialty Start Date End Date Karina Wood MD [address] [place] [phone] PCP - General Family Medicine 10/03/16 Marisel Alcala MD [address] [place] [address] Orthopaedic Surgery 03/31/24 Janel Lai [address] [place] [address] Gastroenterology 03/31/24 documented as of this encounter
--- OUTSIDE RECORDS SUMMARY | 2024-07-11 11:43 | XMS_ITS | Encounter Summary ---
Author Organization [employer] Address 75 [facility] 7t [place] [address] Care Team Providers Care Catering Director Name Role Phone Karina Wood MD Primary Care Provider [phone] Marisel Alcala MD Unavailable [phone] Janel Lai Unavailable Reason for Referral * Consultation (Routine) - Authorized Specialty Diagnoses / Procedures Referred By Contac t Referred To Contact Pharmacy Diagnoses Tobacco abuse Karina Wood MD [address] [place] [phone] Phone: tel: fax: Referral ID Status Reason Start Date Expiration Date Visits Requested Visits Authorized [id number] Authorized Consult and Treat 07/11/2024 07/11/2025 6 6 * Consultation (Routine) - Authorized Specialty Diagnoses / Procedures Referred By Contac t Referred To Contact Behavioral Health Diagnoses Positive depression screening Karina Wood MD [address] [place] [phone] Phone: tel: fax: Referral ID Status Reason Start Date Expiration Date Visits Requested Visits Authorized [id number] Authorized Specialty Services Required 07/11/2024 07/11/2025 1 1 * Consultation (Routine) - Pending Review Specialty Diagnoses / Procedures Referred By Contac t Referred To Contact Cardiology Diagnoses Atherosclerotic vascular disease Karina Wood MD [address] [place] [phone] Phone: tel: fax: Referral ID Status Reason Start Date Expiration Date Visits Requested Visits Authorized [id number] Pending Review Specialty Services Required 07/11/2024 07/11/2025 1 1 Encounter Details Date Type Department Care Team (Late st Contact Info) Description 07/11/2024 9:45 AM EDT Office Visit [facility] [address] [place] [address] Karina Wood MD [address] [place] [address] of the abdomen (Primary Dx); Atherosclerotic vascular disease; Positive depression screening; Tobacco abuse; Chronic midline back pain, unspecified back location; Prediabetes Social History Tobacco Use Types Packs/Day Years [...] AM EDT documented as of this encounter Last Filed Vital Signs Vital Sign Reading [...] Mass Index 34.61 07/11/2024 9:45 AM EDT documented in this encounter Patient Instructions * Patient Instructions* Karina Wood MD - 07/11/2024 9:45 AM EDT Please get your SINGLES VACCINE documented in this encounter Plan of Treatment Scheduled Orders Name Type Priority Associated Diagnoses Orde r Schedule XR Lumbar Spine 2-3 Views Imaging Routine Chronic midline back pain, unspecified back location Expected: 07/11/2024, Expires: 07/11/2025 XR CERVICAL SPINE 3V Imaging Routine Chronic midline back pain, unspecified back location Expected: 07/11/2024, Expires: 07/11/2025 XR Thoracic Spine 3 Views Imaging Routine Chronic midline back pain, unspecified back location Expected: 07/11/2024, Expires: 07/11/2025 Scheduled Referrals Name Type Priority Associated Diagnoses Order Schedule Referral to Cardiology Outpatient Referral Routine Atherosclerotic vascular disease Expected: 07/11/2024 (Approximate), Expires: 07/11/2025 Referral to Behavioral Health Outpatient Referral Routine Positive depression screening Expected: 07/11/2024 (Approximate), Expires: 07/11/2025 Referral to Pharmacy CD Outpatient Referral Routine Tobacco abuse Ordered: 07/11/2024 documented as of this encounter Goals Goal Patient Goal Type Associated Problems Recent Progress Patient-Stated? Author Smoking cessation General Amy Zazueta PharmD documented as of this encounter Procedures Procedure Name Priority Date/Time Associated Diagnosis Comments HEMOGLOBIN A1C Routine 07/11/2024 10:22 AM EDT Prediabetes documented in this encounter Results * (ABNORMAL) Hemoglobin A1c (07/11/2024 10:22 AM EDT) Hemoglobin A1c 6.2(H) <6.0 % [facility] Comment:Hemoglobin A1C Refer ence Range Adults: 4.8 - 6.0 % Non diabetic: < 6.0 % Goal: < 7.0 %Additional Action Suggested: > 8.0 %Note: Hemoglobin A1c results are invalid for patients with abnormal amounts of HbF. Blood transfusions may impact the HbA1c concentration in the patient sample. Estimated Average Glucose 131 mg/dL [facility] Comment:eAG = Estimated ave rage glucose which is %A1C expressed asaverage glucose, using the formula of the H9G-KavwbayLomrida Glucose study (ADAG), Diabetes Care, Vol.31,#8,Oct. 2007 Blood Venous blood specimen / Unknown 07/11/2024 10:22 AM EDT 07/11/2024 11:08 AM EDT us Karina Wood MD LAB BLOOD ORDERABLES Final Result [facility] [address] [place] [phone] documented in this encounter Visit Diagnoses Diagnosis Abnormal CT of the abdomen- Primary Nonspecific (abnormal) findings on radiological and other examination of abdominal area, including retroperitoneum Atherosclerotic vascular disease Generalized and unspecified atherosclerosis Positive depression screening Tobacco abuse Tobacco use disorder Chronic midline back pain, unspecified back location Prediabetes Other abnormal glucose documented in this encounter Additional Health Concerns Assessment Noted Time PHQ-9 Depression Total Score: 11 03/25/ 025 10:09 AM EST documented as of this encounter Care Teams Catering Director Relationship Specialty Start Date End Date Karina Wood MD [address] [place] [address] PCP - General Family Medicine 10/03/16 Marisel Alcala MD [address] [place] [address] Orthopaedic Surgery 03/31/24 Janel Lai [address] 3rd [place] [address] Gastroenterology 03/31/24 documented as of this encounter
--- OUTSIDE RECORDS SUMMARY | 2024-07-11 11:43 | XMS_ITS | Encounter Summary ---
Author Organization [employer] Address 75 [facility] 7t [place] [address] Care Team Providers Care Political Geographer Name Role Phone Karina Wood MD Primary Care Provider [phone] Marisel Alcala MD Unavailable [phone] Janel Lai Unavailable Reason for Visit * Reason Onset Date Comments chart prep 07/06/2024 Encounter Details Date Type Department Care Team (Late st Contact Info) Description 07/06/2024 Telephone [facility] [address] [place] [address] Karina Wood MD [address] [place], [place] [phone] chart prep Social History Tobacco Use Types Packs/Day Years [...] the past 12 months, has t he [employer], gas, oil or water company threatened to [...] encounter Miscellaneous Notes * Telephone Encounter - Daphney Allen [place] - 07/06/2024 9:57 AM EDT Chart Prep Labs: done Images: not done Referrals: Rheumatology Notes requested Vaccines due: Zoster Screenings: mammogram due 07/08/24 Overdue care gaps: ANDREY-7, Oral health screening, and Disability screen documented in this encounter Plan of Treatment [...] documented as of this encounter Care Teams Political Geographer Relationship Specialty Start Date End Date Karina Wood MD [address] [place] [address], [place] [address] PCP - General Family Medicine 10/03/16 Marisel Alcala MD [address] [place] [address] Orthopaedic Surgery 03/31/24 Janel Lai [address]rd [place] [address] Gastroenterology 03/31/24 documented as of this encounter
== END 2024-07-11 10:22 | disposition home or self-care (01) ==
LOC: HO.HHCL 10:21
PROVIDERS: Visit Provider Family Medicine
DX: R73.03 Prediabetes (principal); M54.9 Dorsalgia, unspecified; G89.29 Other chronic pain
CPT/HCPCS: 36415; 72040; 72072; 72100; 83036

== ENCOUNTER → 2024-07-11 10:29 | Outpatient (BNV) | payer MEDICAID, SELFPAY | PROVIDERS: Visit Provider Radiology Diagnostic Radiology | DX: M47.895 Other spondylosis, thoracolumbar region (principal); M47.812 Spondylosis without myelopathy or radiculopathy, cervical region | CPT/HCPCS: 72040; 72072; 72100 ==

== ENCOUNTER 2024-07-12 09:21 | Outpatient (REF) | payer MEDICAID, SELFPAY | END 2024-07-12 09:22 | disposition home or self-care (01) | LOC: HO.MAMMO 09:21 | PROVIDERS: PCP Family Medicine; Visit Provider Family Medicine | DX: Z12.31 Encounter for screening mammogram for malignant neoplasm of breast (principal) | CPT/HCPCS: 77063; 77067 ==

== ENCOUNTER → 2024-07-12 09:45 | Outpatient (BNV) | payer MEDICAID, SELFPAY | PROVIDERS: PCP Family Medicine; Visit Provider Internal Medicine | DX: Z12.31 Encounter for screening mammogram for malignant neoplasm of breast (principal) | CPT/HCPCS: 77063; 77067 ==

== ENCOUNTER 2024-08-31 07:38 | Outpatient (REF) | payer MEDICAID, SELFPAY ==
--- NOTE | ~2024-08-31 | MR_ITS ---
EXAMINATION: MR LUMBAR SPINE WITHOUT CONTRAST CLINICAL INFORMATION: Worsening right low back pain with right lower extremity radiculopathy. COMPARISON: No prior MRI. Correlation made with lumbar radiographs 07/11/2024. TECHNIQUE: Multiplanar multisequence MR imaging of the lumbar spine was done without IV contrast. Examination was performed on a 1.5 Betsey Siemens magnet, utilizing standard sequences. FINDINGS: CORONAL ALIGNMENT: -There is minimal right convex scoliosis. SAGITTAL ALIGNMENT: - There is a normal lumbar lordosis. -There are no subluxations. LUMBOSACRAL JUNCTION: -Normal. There are 5 [id number] lumbar-type vertebral bodies. VERTEBRAL BODIES/BONE MARROW: -No compression deformities or gross fractures. Normal vertebral stature. -Minimal edematous type endplate changes present at L2-3. -Mild fatty type endplate changes L1-2 and L2-3. -No abnormal infiltrating bone marrow signal. DISCS: -Mild diffuse loss of disc signal. -Mild loss of disc height at L1-2 and L2-3. SPINAL CANAL: -No abnormal developmental findings. CONUS MEDULLARIS: -Terminates at T12-L1. Morphology and signal is normal. INTRADURAL NERVE ROOTS: - Within normal limits. Axial Disc Space Images: T12-L1: There is no central canal or neural foraminal narrowing. L1-L2: Shallow concentric disc bulge present, extending into the bilateral foraminal zones. Mild hypertrophic degenerative facet changes. There is no central canal or lateral recess stenosis. There is mild bilateral neural foraminal stenosis. L2-L3: Shallow concentric disc bulge present with superimposed bilateral foraminal disc protrusions. There is annular fissuring in the left lateral zone. There are mild to moderate hypertrophic degenerative facet changes, with mild posterior ligamentous thickening/infolding. There is mild central canal narrowing, mild bilateral subarticular recess narrowing, and mild to moderate left and mild right neural foraminal narrowing. L3-L4: Shallow concentric disc bulge present with superimposed bilateral foraminal disc protrusions. There is annular fissuring in the right lateral zone. There are mild hypertrophic degenerative facet changes present with posterior ligamentous infolding/thickening. Combination of findings is resulting in mild central canal stenosis, mild bilateral subarticular recess stenosis, and mild to moderate left and mild right neural foraminal narrowing. L4-L5: Minimal disc bulge present. Annular fissuring present in the left foraminal zone. Mild hypertrophic degenerative facet changes bilaterally with mild posterior ligamentous infolding. Minimal central canal narrowing. No subarticular recess narrowing. Mild bilateral neural foraminal narrowing. L5-S1: Minimal disc bulge present with central annular fissuring. No significant central canal or neural foraminal narrowing. IMAGED SI JOINTS: -Mild degenerative arthritis. PARAVERTEBRAL AND INCLUDED EXTRASPINAL SOFT TISSUES: -Normal. The aorta is normal in caliber. MR/MR lumbar spine wo con IMPRESSION: 1. Mild lumbar spondylosis as detailed. 2. No high-grade central canal, lateral recess, or neural foraminal narrowing. 3. Please see the body the report for details. Electronically signed by: Abdias Luna MD 08/31/2024 09:59 AM EDT
== END 2024-08-31 07:39 | disposition home or self-care (01) ==
LOC: HO.MRI 07:38
PROVIDERS: PCP Family Medicine; Visit Provider Emergency Medicine
DX: M54.41 Lumbago with sciatica, right side (principal); G89.29 Other chronic pain
CPT/HCPCS: 72148

== ENCOUNTER → 2024-08-31 07:44 | Outpatient (BNV) | payer MEDICAID, SELFPAY | PROVIDERS: PCP Family Medicine; Visit Provider Radiology Diagnostic Radiology | DX: M54.50 Low back pain, unspecified (principal); M54.16 Radiculopathy, lumbar region | CPT/HCPCS: 72148 ==

== ENCOUNTER 2024-11-01 10:32 | Outpatient (REF) | payer MEDICAID, SELFPAY ==
--- OUTSIDE RECORDS SUMMARY | 2024-11-01 10:30 | XMS_ITS | Encounter Summary ---
Author Organization [employer] Address [address] [facility] [address] [place] [address] Care Team Providers Care Automotive Dismantler Name Role Phone Karina Wood MD Primary Care Provider [phone] Marisel Alcala MD Unavailable [phone] Janel Lai Unavailable Amy Shukla PharmD Unavailable Leeroy Cardenas MD Unavailable [phone] Encounter Details Date Type Department Care Team (Late st Contact Info) Description 11/01/2024 10:30 AM EDT Office Visit [facility] MEDICINE [address] [place], [place] [phone] Jacinto Allred MD [address] [place], [place] [phone] Routine physical examination (Primary Dx); Class 1 obesity due to excess calories with serious comorbidity and body mass index (BMI) of 34.0 to 34.9 in adult Social History Tobacco Use Types Packs/Day Years Used Date Smoking Tobacco: Every Day Cigarettes 1 31.6 Started: 1986; Last attempted to quit: 2007 Passive Smoke Exposure: Current Smokeless Tobacco: Never Alcohol Use Standard Drinks/Week Comments Never 0 (1 standard drink = 0.6 oz pur e alcohol) Alcohol Answer Date Recorded Frequency of Alcohol Consumption Not on file 12/28/2023 Average Number of Drinks Not on file 024 Frequency of Binge Drinking Not on file 12/08 Score 0 12/28/2023 Depression Answer Date Recorded Patient Health Questionnaire-9 Score 14 11/01/2024 Patient Health Questionnaire-9 Score 14 11/01/2024 Last PHQ-9: Questionnaire Data Not on file 0 11/01/2024 Housing Stability Answer Date Recorded What is [...] Answer Date Recorded Patient Health Questionnaire-2 Score 2 11/01/2024 Internet Access Answer Date Recorded Internet Access [...] Sign Reading Time Taken Comments Blood Pressure 138/84 11/01/2024 10:22 AM EDT Pulse 68 11/01/2024 10:01 AM EDT Temperature 36.6 C (97.9 F) 11/01/2024 10:01 AM EDT Respiratory Rate 22 11/01/2024 10:01 AM EDT Oxygen Saturation - - Inhaled Oxygen Concentration - - Weight 100 kg (221 lb 4 oz) 11/01/2024 10:01 AM EDT Height 170.2 cm (5' 7 ) 11/01/2024 10:01 AM EDT Body Mass Index 34.65 11/01/2024 10:01 AM EDT documented in this encounter Functional Status * Over the past 2 weeks, how often have you been bothered by any of the following problems? Question Answer Date of Assessment Author Patient Health Questionnaire-2 Score 2 10/08 10:02 AM EDT Octavio Hastings MA * Little interest or pleasure in doing things Answer Date of Assessment Author Several days 11/01/2024 10:02 AM SUSIT Miriam Hastings MA * Feeling down, depressed, or hopeless Answer Date of Assessment Author Several days 11/01/2024 10:02 AM EDT Miriam Hastings MA * Trouble falling or staying asleep, or sleeping too much Answer Date of Assessment Author Nearly every day 11/01/2024 10:02 AM EDT Benjamín Hastings MA * Feeling tired or having little energy Answer Date of Assessment Author Nearly every day 11/01/2024 10:02 AM SUSIT Benjamín Hastings MA * Poor appetite or overeating Answer Date of Assessment Author Nearly every day 11/01/2024 10:02 AM EDT Benjamín Hastings MA * Feeling bad about yourself - or that you are a failure or have let yourself or your family down Answer Date of Assessment Author Not at all 11/01/2024 10:02 AM EDMiriam Hicks MA * Trouble concentrating on things, such as reading the newspaper or watching television Answer Date of Assessment Author Nearly every day 11/01/2024 10:02 AM Benjamín Edwards MA * Moving or speaking so slowly that other people could have noticed? Or the opposite - being so fidgety or restless that you have been moving around a lot more than usual. Answer Date of Assessment Author Not at all 11/01/2024 10:02 AM EDMiriam Hicks MA * Thoughts that you would be better off or hurting yourself in some way Answer Date of Assessment Author Not at all 11/01/2024 10:02 AM Miriam Edwards MA * Patient Health Questionnaire-9 Score Answer Date of Assessment Author 14 11/01/2024 10:02 AM SUSIT Miriam Hastings MA * How difficult have these problems made it for you to do your work, take care of things at home, or get along with other people? Answer Date of Assessment Author Somewhat difficult 11/01/2024 10:02 AM EDT Octavio Hastings MA documented as of this encounter Progress Notes * Jacinto Oseguera MD - 11/01/2024 10:30 AM EDT SUBJECTIVE Jodi Scott is a 54 y.o. female who presents for No chief complaint on file.. Patient of Dr Wood here for a PE required for work Review of Systems Constitutional: Negative for appetite change, fatigue and fever. HENT: Negative for ear pain, hearing loss and sore throat. Eyes: Negative for pain and visual disturbance. Respiratory: Negative for cough and shortness of breath. Cardiovascular: Negative for chest pain and palpitations. Gastrointestinal: Negative for abdominal pain, nausea and vomiting. Genitourinary: Negative for dysuria. Skin: Negative for rash. Neurological: Negative for dizziness and headaches. Psychiatric/Behavioral: Negative for sleep disturbance. Allergies[1] OBJECTIVE Vitals: 11/01/24 1001 11/01/24 1022 BP: (!) 152/80 138/84 BP Location: Left arm Left arm Patient Position: Sitting Sitting BP Cuff Size: Large adult Pulse: 68 Resp: 22 Temp: 97.9 ??F (36.6 ??C) TempSrc: Oral Weight: 221 lb 4 oz (100 kg) Height: 5' 7 (1.702 m) Physical Exam Vitals reviewed. Constitutional: General: She is awake. Appearance: Normal appearance. She is well-developed. HENT: Head: Normocephalic and atraumatic. Right Ear: Tympanic membrane, ear canal and external ear normal. Left Ear: Tympanic membrane, ear canal and external ear normal. Nose: Nose normal. Mouth/Throat: Mouth: Mucous membranes are moist. Pharynx: Oropharynx is clear. Eyes: Extraocular Movements: Extraocular movements intact. Conjunctiva/sclera: Conjunctivae normal. Pupils: Pupils are equal, round, and reactive to light. Cardiovascular: Rate and Rhythm: Normal rate and regular rhythm. Pulses: Normal pulses. Heart sounds: Normal heart sounds. Pulmonary: Effort: Pulmonary effort is normal. Breath sounds: Normal breath sounds. Chest: Breasts: Right: Normal. No swelling, bleeding, inverted nipple, mass or nipple discharge. Left: Normal. No swelling, bleeding, inverted nipple, mass or nipple discharge. Abdominal: General: Bowel sounds are normal. Palpations: Abdomen is soft. Musculoskeletal: General: Normal range of motion. Cervical back: Normal range of motion and neck supple. Lymphadenopathy: Upper Body: Right upper body: No supraclavicular or axillary adenopathy. Left upper body: No supraclavicular or axillary adenopathy. Skin: General: Skin is warm. Capillary Refill: Capillary refill takes less than 2 seconds. Neurological: General: No focal deficit present. Mental Status: She is alert and oriented to person, place, and time. Deep Tendon Reflexes: Reflexes are normal and symmetric. Psychiatric: Mood and Affect: Mood normal. Assessment/Plan Problem List Items Addressed This Visit Routine physical examination - Primary Aside from obesity, all other chronic conditions are stable. 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 Personal goal of weight loss discussed Patient has comorbidity of: HTN Future Appointments Date Time Provider Department Center 11/01/2024 10:30 AM Jacinto Oseguera MD MEDICINE [facility] 01/18/2025 9:00 AM Amy Shukla PharmD MEDICINE [facility] 02/06/2025 10:30 AM Annamarie Loja OD VISION [facility] [1] Allergies Allergen Reactions Tramadol Trazodone Angioedema documented in this encounter Miscellaneous Notes * Assessment & Plan Note - Jacinto Oseguera MD - 11/01/2024 10:24 AM EDT Associated Problem(s): Routine physical examination Aside from obesity, all other chronic conditions are stable. 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 Personal goal of weight loss discussed Patient has comorbidity of: HTN documented in this encounter Plan of Treatment Upcoming Encounters Date Type Department Care Team (Late st Contact Info) Description 01/11/2025 9:30 AM EST Office Visit [facility] MEDICINE [address] [place] [address] Karina Wood MD [address] [place] [address] 01/18/2025 9:00 AM EST Telemedicine [facility] MEDICINE [address] [place] [address] Amy Shukla, PharmD [address] [place] [address] 02/06/2025 10:30 AM EST Office Visit [facility] OPTOMETRY [address] [place] [address] Annamarie Loja, OD [address] [place] [address] Scheduled Orders Name Type Priority Associated Diagnoses Orde r Schedule T-SPOT .TB Lab Routine Routine physical examination Expected: 11/01/2024 (Approximate), Expires: 11/01/2025 documented as of this encounter Goals Goal Patient Goal Type Associated Problems Recent Progress Patient-Stated? Author Smoking cessation General No Amy Verdugo, PharmD documented as of this encounter Visit Diagnoses Diagnosis Routine physical examination- Primary Routine general medical examination at a health care facility Class 1 obesity due to excess calories with serious comorbidity and body mass index (BMI) of 34.0 to 34.9 in adult documented in this encounter Additional Health Concerns Assessment Noted Time PHQ-9 Depression Total Score: 14 025 10:02 AM EDT documented as of this encounter Care Teams Automotive Dismantler Relationship Specialty Start Date End Date Karina Wood MD [address] [place] [address] PCP - General Family Medicine 10/03/16 Marisel Alcala MD [address] [place] [address] Orthopaedic Surgery 03/31/24 Janel Lai [address] [place] [address] Gastroenterology 03/31/24 Amy Shukla, MalvinD [address] [place] [address] Pharmacist Internal Medicine 07/15/24 Leeroy Cardenas MD [address] [place] [address] Rheumatology 09/07/24 documented as of this encounter
--- OUTSIDE RECORDS SUMMARY | 2024-11-01 11:19 | XMS_ITS | Encounter Summary ---
Author Organization [employer] Address [address] [facility] [address] [place] [address] Care Team Providers Care Parole Hearing Officer Name Role Phone Karina Wood MD Primary Care Provider [phone] Amy Shukla PharmD Unavailable Marisel Alcala MD Unavailable [phone] Janel Lai Unavailable Amy Shukla PharmD Unavailable Leeroy Cardenas MD Unavailable Encounter Details Date Type Department Care Team (Late st Contact Info) Description 04/11/2022 Abstract [facility] MEDICINE [address] [place] [phone] Karina Wood MD [address] [place] [phone] Social History Tobacco Use Types Packs/Day Years Used Date Smoking Tobacco: Never Assessed Comments Unknown Sex and Gender Information Value Date Recorded Sex Assigned at Female 01/06/2022 10:14 AM EDT Legal Sex Female 10:14 AM EDT Gender Identity Female 01/06/2022 10:14 AM EDT Sexual Orientation Straight 01/06/2022 10 :14 AM EDT documented as of this encounter Plan of Treatment Upcoming Encounters Date Type Department Care Team (Late Contact Info) Description 01/11/2025 9:30 AM EST Office Visit [facility] MEDICINE [address] [place], [place] [phone] Karina Wood MD [address] [place], [place] [phone] 01/18/2025 9:00 AM EST Telemedicine [facility] MEDICINE [address] [place] [address] Amy Shukla PharmD [address] [place] [address] 02/06/2025 10:30 AM EST Office Visit [facility] OPTOMETRY [address] [place] [address] Freedom, Annamarie, OD [address] [place] [address] documented as of this encounter Procedures Procedure Name Priority Date/Time Associated Diagnosis Comments COLONOSCOPY Routine 07/12/2021 MAMMOGRAPHY Routine 02/26/2021 PAP SMEAR Routine 12/26/2020 12:00 AM EDT documented in this encounter Results * Colonoscopy (07/12/2021) Colonoscopy tubular adenoma with Dr. Ortega Historical Provider HEALTH MAINTENANCE Final Result * Mammography (02/26/2021) Mammogram BIRADS 1 Anatomical Region Laterality Modality Other Historical Provider HEALTH MAINTENANCE Final Result * Pap Smear (12/26/2020 12:00 AM EDT) Swab [facility] Provider LAB CYTOLOGY ORDERABLES F inal Result IMAGING documented in this encounter Visit Diagnoses Not on filedocumented in this encounter Care Teams Parole Hearing Officer Relationship Specialty Start Date End Date Karina Wood MD [address] [place] [address] PCP - General Family Medicine 10/03/16 Amy Shukla PharmD [address] [place] [address] Pharmacist Internal Medicine 07/17/22 01/05/23 Marisel Alcala MD [address] [place] [address] Orthopaedic Surgery 03/31/24 Janel Lai [address] [place] [address] Gastroenterology 03/31/24 Amy Shukla PharmD [address] [place] [address] Pharmacist Internal Medicine 07/15/24 Leeroy Cardenas MD [address] [place] [address] Rheumatology 09/07/24 documented as of this encounter
--- OUTSIDE RECORDS SUMMARY | 2024-11-01 11:19 | XMS_ITS | Encounter Summary ---
Author Organization [employer] Address [address] [facility] [address]t [place] [address] Care Team Providers Care Chairman President And Chief Executive Officer Name Role Phone Karina Wood MD Primary Care Provider + [phone] Amy Shukla PharmD Unavailable [phone] Marisel Alcala MD Unavailable [phone] Janel Lai Unavailable Amy Shukla PharmD Unavailable [phone] Leeroy Cardenas MD Unavailable Encounter Details Date Type Department Care Team (Late st Contact Info) Description 03/31/2022 Orders Only [facility] MED & PEDS [address] [place] [address] Gauri Negron LPN Social History Tobacco Use [...] Description 01/11/2025 9:30 AM EST Office Visit [address] [address] Karina Wood MD [address] [place] [address] 01/18/2025 9:00 AM EST Telemedicine [facility] MEDICINE [address] [place] [address] Amy Shukla, PharmD [address] [place] [address] 02/06/2025 10:30 AM EST Office Visit [facility] OPTOMETRY [address] [place] [address] Freedom, Annamarie, OD [address] [place] [address] documented as of this encounter Visit Diagnoses Not on filedocumented in this encounter Care Teams Chairman President And Chief Executive Officer Relationship Specialty Start Date End Date Karina Wood MD [address] [place] [address] PCP - General Family Medicine 10/03/16 Amy Shukla, PharmD [address] [place] [address] Pharmacist Internal Medicine 07/17/22 01/05/23 Marisel Alcala MD [address] [place] [address] Orthopaedic Surgery 03/31/24 Janel Lai [address] [place] [address] Gastroenterology 03/31/24 Amy Shukla, PharmD [address] [place] [address] Pharmacist Internal Medicine 07/15/24 Leeroy Cardenas MD [address] [place] [address] Rheumatology 09/07/24 documented as of this encounter
--- OUTSIDE RECORDS SUMMARY | 2024-11-01 11:19 | XMS_ITS | Clinical Summary ---
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 Role Phone Karina Wood MD Primary Care Provider [phone] Marisel Alcala MD Unavailable Janel Lai Unavailable Amy Shukla PharmD Unavailable Leeroy Cardenas MD Unavailable [phone] Allergies Active Allergy Reactions Criticality Noted Date [...] MUSCLE SPASMS 90 tablet 04/06/19 24 Active QUEtiapine (SEROquel) 50 MG tabletIndicatio ns:Fibromyalgia TAKE 1 TABLET BY MOUTH AT BEDTIME 90 tablet 3 11/26/19 24 Active cyanocobalamin (Vitamin B-12) 1000 MCG tabletIndicatio ns:B12 deficiency TAKE 1 TABLET BY MOUTH EVERY DAY 90 tablet 3 12/08/19 24 Active lisinopril 10 MG tabletIndicatio ns:Essential hypertension TAKE 1 TABLET BY MOUTH EVERY MORNING 90 tablet 3 12/31/19 24 Active D3-1000 25 MCG (1000 UT) capsuleIndicati ons:Vitamin D deficiency TAKE 1 CAPSULE BY MOUTH EVERY MORNING 90 capsule 3 02/10/20 24 Active Ventolin HFA 108 (90 Base) MCG/ACT inhalerIndicati ons:Mild intermittent asthma without complication INHALE 2 PUFFS BY MOUTH EVERY 4 HOURS NEEDED FOR WHEEZING OR SHORTNESS OF BREATH 18 g 3 04/08/19 25 Active esomeprazole (NexIUM) [address] capsuleIndicati ons:Gastroesoph ageal reflux disease, unspecified whether esophagitis present TAKE 1 CAPSULE BY MOUTH EVERY DAY 90 capsule 1 07/12/19 25 Active nicotine (Nicoderm, Step 2) 14 MG/24HR patchIndication s:Nicotine Dependence Place 1 patch on the skin 1 (one) time each day at the same time. 42 patch 3 07/16/19 25 Active nicotine (Nicoderm CQ) 7 MG/24HR patchIndication s:Tobacco abuse Place 1 patch on the skin 1 (one) time each day at the same time. 14 patch 07/16/19 25 Active atorvastatin (Lipitor) 40 MG tabletIndicatio ns:Dyslipidemia TAKE 1 TABLET BY MOUTH AT BEDTIME 90 tablet 3 08/19/19 25 Active pregabalin (Lyrica) 200 MG capsuleIndicati ons:Fibromyalgi a TAKE 1 CAPSULE BY MOUTH TWICE DAILY 60 capsule 3 09/01/19 25 Active ibuprofen 400 MG tablet Take 1 tablet (400 mg) by mouth every 6 (six) hours if needed for moderate pain, fever or headaches for up to 30 doses. 20 tablet 10/04/19 25 Active magnesium oxide 250 MG tabletIndicatio ns:Fibromyalgia TAKE 1 TABLET BY MOUTH DAILY AT BEDTIME 90 tablet 10/12/19 25 Active acetaminophen (Tylenol 8 Hour) 650 MG ER tablet Take 1 tablet (650 mg) by mouth every 8 (eight) hours if needed for mild pain. Do not crush, chew, or split. 30 tablet 10/13/19 25 Active magnesium oxide 250 MG tabletIndicatio ns:Fibromyalgia Take 1 tablet (250 mg) by mouth at bedtime. 90 tablet 06/29/19 25 025 Discontinued ibuprofen 400 MG tablet Take 1 tablet (400 mg) by mouth every 6 (six) hours if needed for moderate pain, fever or headaches for up to 30 doses. 20 tablet 08/31/19 25 025 Discontinued(Re order (will not trigger notification to Pharmacy)) amoxicillin (Amoxil) 500 MG capsule Take 1 capsule (500 mg) by mouth every 8 (eight) hours for 7 days. 21 capsule 10/13/19 25 025 Active Problems Problem Noted Date Diagnosed Date Routine physical examination 11/01/2024 Assessment & Plan (11/01/2024 10:24 AM EDT): Aside from obesity, all other chronic conditions are stable. 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 CT 05/26/24 Moderate calcified atherosclerotic disease. No lymphadenopathy. 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 No ascites. -03/25/24, TSH was normal, UA contaminated, no culture available. Inflammatory markers normal, except MARIA ISABEL positive. -ordered additional XR's of lumbar, cervical and thoracic spine. 07/11/24L-spine IMPRESSION: Scoliosis and multilevel thoracolumbar spondylosis without acute fracture or gross listhesis. Stable. C-spine IMPRESSION: Cervical spondylosis C5-6 and C6-7 levels with the questionable grade 1 retrolisthesis C6-7.T-spine IMPRESSION: Mild scoliosis, thoracolumbar spine and mild to moderate multilevel thoracic spondylosis. No gross change. -MRI l spine 08/31/24 MR/MR lumbar spine wo con IMPRESSION: Mild lumbar spondylosis as detailed. No high-grade central canal, lateral recess, or neural foraminal narrowing. Assessment & Plan (07/11/2024 2:58 PM EDT): Chronic back pain that radiates down her spine. CT 05/26/24 Moderate calcified atherosclerotic disease. No lymphadenopathy. 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 No ascites. -03/25/24, TSH was normal, UA contaminated, no culture available. Inflammatory markers normal, except MARIA ISABEL positive. -ordered additional XR's of lumbar, cervical and thoracic spine. 07/11/24 L-spine IMPRESSION: Scoliosis and multilevel thoracolumbar spondylosis without acute fracture or gross listhesis. Stable. C-spine IMPRESSION: Cervical spondylosis C5-6 and C6-7 levels with the questionable grade 1 retrolisthesis C6-7. T-spine IMPRESSION: Mild scoliosis, thoracolumbar spine and mild to moderate multilevel thoracic spondylosis. No gross change. Positive depression screening 07/11/2024 Overview (07/11/2024): Patient Health Questionnaire-9 Score: 11 (03/25/2024 10:09 AM) -referred to behavioral health 07/11/24 Assessment & Plan (07/11/2024 2:59 PM EDT): Patient Health Questionnaire-9 Score: 11 (03/25/2024 10:09 AM) -referred to behavioral health 07/11/24 Atherosclerotic vascular disease 05/27/2024 Overview (05/27/2024): CT done 05/2024 incidentally showed Moderate calcified atherosclerotic disease. -lifestyle modification discussed Assessment & Plan (07/11/2024 2:52 PM EDT): CT done 05/2024 incidentally showed Moderate calcified [...] a ponytail. Will keep monitoring and follow-up. Abnormal CT of the abdomen 02/22/2024 Overview [...] mesenteric panniculitis. No ascites. Assessment & Plan (07/11/2024 2:58 PM EDT): CT/CT abdomen pelvis wo IV con done [...] obesity due to exces s calories with serious comorbidity and body mass index (BMI) of 34.0 to 34.9 in adult 12/28/2023 Overview (12/28/2023): Pt is drinking approx. a 2L bottle of soda/day. -recommended drinking with ice to decrease amount of intake as well as using a smaller cup. -discussed titrating the bottle to last longer than 1 day and then increasing the titration. Assessment & Plan (11/01/2024 10:23 AM EDT): Patient has been counseled and educated about diet and exercise. Personal goal of weight loss discussed Patient has comorbidity of: HTN Assessment & Plan (03/25/2024 10:20 AM EST): [...] on differential is fluid overload from untreated RFEEDOM or heart failure, low oncotic pressure, DVT, [...] Overview (12/28/2023): The 10-year ASCVD risk score (eLwis QUAN, et al., 2019) is: 13.2% Values [...] 06/05/2023 Overview (06/05/2023): - Referral place to behavioral health for further management 06/05/23 Assessment & Plan (06/05/2023 11:01 AM EDT): - Referral place to behavioral health for further management 06/05/23 Other specified health status 08/27/2022 Overview (07/12/2024): -next physical exam due after 07/12/25 -eye care facilitated by [facility] -dental home is [facility] - Health care proxy paperwork completed by the patient 06/05/23 Assessment & Plan (06/05/2023 10:58 AM EDT): -next physical exam due after 06/04/24 -eye care facilitated by [facility], [facility] -dental home is [facility] -Health care proxy paperwork completed by [...] hold x now Tobacco abuse 07/03/2022 Overview (07/11/2024): -Cigg/day: 10 -Age started: 17-quit for 7 years -Total years smokin -Pack year history: 21.75 -Discussed starting Chantix 08/27/22. -Declines Chantix as she tried Chantix in the past and reports unpleasant side effects (anxiety and shaking) Encouraged smoking cessation resources such as pharmacomtherapy, [facility] smoking cessation group, and [facility] pharmacy smoking cessation clinic Discussed USPSTF recommends annual lung cancer screening with low dose CT in people who meet the following criteria: -ages 50 to 80 years. -have a 20 pack-year smoking history. -currently smoke cigarettes or quit within the past 15 years. -LDCT 08/28/23 No evidence of pulmonary malignancy. Repeat in 1 year. -referred to Collaborative Drug Therapy Managment Program with our [facility] [place] 07/11/24 Assessment & Plan (07/11/2024 2:54 PM EDT): -Cigg/day: 10 -Age started: 17-quit for 7 years -Total years smokin -Pack year history: 21.75 -Discussed starting Chantix 08/27/22. -Declines Chantix as she tried Chantix in the past and reports unpleasant side effects (anxiety and shaking) Encouraged smoking cessation resources such as pharmacomtherapy, [facility] smoking cessation group, and [facility] pharmacy smoking cessation clinic Discussed USPSTF recommends annual lung cancer screening with low dose CT in people who meet the following criteria: -ages 50 to 80 years. -have a 20 pack-year smoking history. -currently smoke cigarettes or quit within the past 15 years. -LDCT 08/28/23 No evidence of pulmonary malignancy. Repeat in 1 year. -referred to Collaborative Drug Therapy Managment Program with our [facility] [place] 07/11/24 Assessment & Plan (12/28/2023 9:38 AM EDT): -Cigg/day: 10 -Age started: 17-quit for 7 years -Total years smokin -Pack year history: 21.75 -Discussed starting Chantix 08/27/22. -Declines Chantix as she tried Chantix in the past and reports unpleasant side effects (anxiety and shaking) Encouraged smoking cessation resources such as pharmacomtherapy, [facility] smoking cessation group, and [facility] pharmacy smoking cessation clinic Discussed USPSTF recommends [...] as pharmacomtherapy, [facility] smoking cessation group, and [facility] pharmacy smoking cessation clinic Discussed USPSTF recommends [...] as pharmacomtherapy, [facility] smoking cessation group, and [facility] pharmacy smoking cessation clinic Discussed USPSTF recommends [...] -referred today to opthalmologist Prediabetes 05/09/2022 Overview (07/11/2024): A1c 5.7% 02/08/2021. She is currently drinking 2L pepsi/day and 4 coffees with 2.5 tsp sugar/day. Motivational interviewing done. She wants to switch to tea and slowly cut down on Pepsi. She likes water. Lab Results Component Value Date HGBA1C 6.2 (H) 07/11/2024 HGBA1C 6.2 (A) 06/05/2023 HGBA1C 5.9 03/27/2022 HGBA1C 5.9 (H) 02/08/2021 GLUCOSE 103 03/29/2024 -Continue lisinopril 10mg daily. Assessment & Plan (07/11/2024 2:54 PM EDT): A1c 5.7% 02/08/2021. She is currently drinking 2L pepsi/day and 4 coffees with 2.5 tsp sugar/day. Motivational interviewing done. She wants to switch to tea and slowly cut down on Pepsi. She likes water. Lab Results Component Value Date HGBA1C 6.2 (H) 07/11/2024 HGBA1C 6.2 (A) 06/05/2023 HGBA1C 5.9 03/27/2022 HGBA1C 5.9 (H) 02/08/2021 GLUCOSE 103 03/29/2024 -Continue lisinopril 10mg daily. Assessment & Plan [...] C Cobalamin deficiency 10/22/2021 Fibromyalgia 10/22/2021 Overview (09/07/2024): Pt has chronic pain syndrome. Multiple work up are normal. I explained different treatment strategies for fibromyalgia. Continue Lyrica 200mg bid There is moderate evidence for efficacy [...] RA as well as underlying infections. 03/25/24 - continue Lyrica increased to 200 bid on 05/11/24 -Given MARIA ISABEL pos will refer to to rheumatology -referred to chronic pain group, did not find relief. -has pain management -acupuncture advised -no new medication changes. 07/11/24 -note from Dr. Leeroy Cardenas, truant officer 08/30/24 reviewed. Unlikely has autoimmune syndrome given low titer MARIA ISABEL, unremarkable physical and negative inflammatory labs. Assessment & Plan (07/11/2024 2:53 PM EDT): Pt has chronic pain syndrome. Multiple [...] RA as well as underlying infections. 03/25/24 - continue Lyrica increased to 200 bid on 05/11/24 -Given MARIA ISABEL pos will refer to to rheumatology -referred to chronic pain group, did not find relief. -has pain management -acupuncture advised -no new medication changes. 07/11/24 Assessment & Plan (05/16/2024 1:02 PM EDT): [...] Problem Noted Date Diagnosed Date Resolved Date Acute midline back pain 03/25/2024 05/0 08/2024 Overview (07/12/2024): Reports new acute back pain that radiates down her spine. Unable to evaluate given Televisit. Given previous abnormal CT, ordered repeat abdominal CT and will evaluate spine as well 03/25/24. -additionally ordered UA, inflammatory markers and TSH 03/25/24, TSH was normal, UA contaminated, no culture available. Inflammatory markers normal, except MARIA ISABEL positive. Xray 07/11/24 IMPRESSION: Scoliosis and multilevel thoracolumbar spondylosis without acute fracture or gross listhesis. Stable. Assessment & Plan (03/25/2024 10:25 AM EST): Reports new acute back pain that radiates down her spine. Unable to evaluate given Televisit. Given previous abnormal CT, ordered repeat abdominal CT and will evaluate spine as well 03/25/24. -additionally ordered UA, inflammatory markers and TSH 03/25/24. Moderate major depression 07/14/2023 Assessment & Plan [...] Encounters Date Type Department Care Team Description 11/01/2024 10:30 AM EDT Office Visit [address] [address] Jacinto Allred MD Routine physical examination (Primary Dx); Class 1 obesity due to excess calories with serious comorbidity and body mass index (BMI) of 34.0 to 34.9 in adult 11/01/2024 Travel 10/31/[address] [address] Karina Wood MD CHART PREP 10/25/2024 Patient Outreach [address] [address] Karina Wood MD Pre-visit Planning (SDOH screening completed on 05/11/24 ) 10/24/2024 9:00 AM EDT Telemedicine [address] [address] Amy Shukla, Cassandra Tobacco abuse (Primary Dx) 10/12/2024 11:00 AM EDT Office Visit [facility] [address] [place] [phone] Hermes Chambers DDS Open fracture of tooth, initial encounter (Primary Dx); Dental caries; Pain, dental 10/10/2024 Refill [facility] [address] [place] [address] Solange Jaeger MD Fibromyalgia 10/03/2024 Refill [facility] [address] [place] [address] Karina Wood MD 09/26/2024 Telephone [facility] [address] [place] [phone] Karina Wood MD Lab Orders 09/21/2024 Telephone [facility] [address] [place] [phone] Karina Wood MD 09/14/2024 Travel 08/31/2024 Results Follow-Up [facility] [address] [place] [phone] Pramod Elizondo MD MR Lumbar Spine w/o Contrast 08/31/2024 Refill [facility] [address] [place] [phone] Karnia Wood MD Fibromyalgia 08/30/2024 10:20 AM EDT Office Visit [facility] [address] [place] [phone] Pramod Elizondo MD Chronic right-sided low back pain with right-sided sciatica (Primary Dx); Chronic midline low back pain, unspecified whether sciatica present 08/18/2024 Refill [facility] [address] [place] [phone] Karina Wood MD Dyslipidemia 08/17/2024 9:30 AM EDT Telemedicine [facility] [address] [place] [phone] Amy Shukla PharmD Tobacco abuse (Primary Dx) 08/04/2024 9:00 AM EDT Telemedicine [facility] [address] [place] [address] Amy Shukla, MalvinD Tobacco abuse (Primary Dx) from Last 3 Months Immunizations Immunization Administration Dates Next Due Hep A, Adult [...] Tobacco: Never Tobacco Cessation:Ready to Q uit: No; Counseling Given: Yes Alcohol Use Standard Drinks/Week Comments Never 0 [...] 22 11/01/2024 10:01 AM EDT Oxygen Saturation 97% 08/30/2024 9:44 AM EDT Inhaled Oxygen Concentration - - Weight 100 kg (221 lb 4 oz) 11/01/2024 10:01 AM EDT Height 170.2 cm (5' 7 ) 11/01/2024 10:01 AM EDT Body Mass Index 34.65 11/01/2024 10:01 AM EDT Plan of Treatment Upcoming Encounters Date Type Department Care Team (Late st Contact Info) Description 01/11/2025 9:30 AM EST Office Visit [facility] [address] [place] [address] Karina Wood MD [address] [place] [address] 01/18/2025 9:00 AM EST Telemedicine [facility] [address] [place] [address] Amy Shukla, MalvinD [address] [place] [address] 02/06/2025 10:30 AM EST Office Visit [facility] [address] [place] [address] Annamarie Loja, OD [address] [place] [address] Health Maintenance Due Date Last Done Comments CT Colonography 1971 Dental Prophylaxis 1971 FIT DNA/Cologuard 1971 FIT 1971 FOBT 1970 Sigmoidoscopy 1970 Dental Oral Exam 08/17/2018 02/15/2018 Dental X-Ray: Bitewings 02/16/2019 02/15/2018 Zoster Vaccines (1 of 2) 2021 Dental X-Ray: Full Mouth 02/16/2021 02/15/2018 Lung Cancer Screening 08/27/2024 08/28/2023 Influenza Vaccine (#1) 2024 , 12/01/2022, 12/12/2021, Additional history exists DTaP/Tdap/Td Vaccines (3 - Td or Tdap) 12/25/2024 12/25/2014, 09/08/2011, 01/20/2006 Alcohol/Substance Use Screening 12/27/2024 12/28/2023 Depression Monitoring 05/04/2025 11/01/2024, 025 SDOH Screening 05/11/2025 05/11/2024 Diabetes: Hemoglobin A1C 07/11/2025 025, 06/05/2023, 03/27/2022, Additional history exists Disability Screening 07/11/2025 07/11/2024 Mammogram 07/12/2025 07/12/2024, 05/04/2023, 02/26/2021, Additional history exists Tobacco Screening 11/01/2025 11/01/2024 Cervical Cancer Screening 12/26/2025 HPV/Cotest 12/26/2025 12/26/2020 [...] Completed 12/28/2023, , 02/14/2021, Additional history exists Hepatitis A Vaccines Aged [...] patient's age to complete this topic Meningococcal B Vaccine Aged Out No l onger eligible based on patient's age to complete [...] Smoking cessation General No Amy Verdugo PharmD Procedures Procedure Name Priority Date/Time Associated Diagnosis Comments 14 EXTRACTION, ERUPTED TOOTH REQ REMOVAL OF BONE AND/OR SECTIONING OF TOOTH Routine 10/12/2024 11:00 AM EDT INTRAORAL - PERIAPICAL FIRST RADIOGRAPHIC IMAGE Routine 10/12/2024 11:00 AM EDT CASE PRESENTATION, DETAILED AND EXTENSIVE TREATMENT PLANNING Routine 10/12/2024 11:00 AM EDT MR LUMBAR SPINE WO CONTRAST Urgent 08/31/2024 7:30 AM EDT Chronic right-sided low back pain with right-sided sciatica BI MAMMOGRAM SCREENING TOMOSYNTHESIS BILATERAL Routine 07/12/2024 9:25 AM EDT Screening mammogram for breast cancer HEMOGLOBIN A1C Routine 07/11/2024 10:22 AM EDT Prediabetes LIPID PANEL, STANDARD Routine 03/29/2024 9:40 AM EST Dyslipidemia LDCT LUNG SCREENING Routine 08/28/2023 1 0:30 AM EDT HEPATITIS C AB W/REFL TO HCV RNA, QN, PCR Routine 08/27/2022 10:12 AM EDT Encounter for hepatitis C screening test for low risk patient HIV 1/2 ANTIGEN/ANTIBODY, FOURTH GENERATION W/RFL Routine 08/27/2022 10:12 AM EDT Routine screening for STI (sexually transmitted infection) HM COLONOSCOPY Routine 07/12/2021 HM PAP/HPV Routine 12/26/2020 PAP SMEAR Routine 12/26/2020 12:00 AM EDT INTRAORAL - COMPLETE SERIES OF RADIOGRAPHIC IMAGES Routine 02/15/2018 12:00 AM EST COMPREHENSIVE ORAL EVALUATION - NEW OR ESTABLISHED PATIENT Routine 02/15/2018 12:00 AM EST from Last 3 Months or Most Recently Relevant to Health Maintenance Results * MR Lumbar Spine w/o Contrast (08/31/2024 7:30 AM EDT) Anatomical Region Laterality Modality Spine, L-spine Magnetic Resonan ce 08/31/2024 7:30 AM EDT Narrative 08/31/2024 10:02 AM EDT [place] [address] Magnetic Resonance Report Signed Patient: Jodi Scott MR#: [id number] 98 : 1970 Acct:[id number] Age/Sex: 54 / F ADM Date: 08/31/24 Loc: HO.MRI Attending Dr: Pramod Elizondo MD Ordering Physician: PRAMOD ELIZONDO MD Date of Service: 08/31/24 Procedure(s): MR lumbar spine wo con Accession Number(s): [id number] cc: PRAMOD ELIZONDO MD; Karina Wood MD EXAMINATION: MR LUMBAR SPINE WITHOUT CONTRAST CLINICAL INFORMATION: Worsening right low back pain with right lower extremity radiculopathy. COMPARISON: No prior MRI. Correlation made with lumbar radiographs 07/11/2024. TECHNIQUE: Multiplanar multisequence MR imaging of the lumbar spine was done without IV contrast. Examination was performed on a 1.5 Betsey Siemens magnet, utilizing standard sequences. FINDINGS: CORONAL ALIGNMENT: -There is minimal right convex scoliosis. SAGITTAL ALIGNMENT: - There is a normal lumbar lordosis. -There are no subluxations. LUMBOSACRAL JUNCTION: -Normal. There are 5 xad-[id number]-[id number] lumbar-type vertebral bodies. VERTEBRAL BODIES/BONE MARROW: -No compression deformities or gross fractures. Normal vertebral stature. -Minimal edematous type endplate changes present at L2-3. -Mild fatty type endplate changes L1-2 and L2-3. -No abnormal infiltrating bone marrow signal. DISCS: -Mild diffuse loss of disc signal. -Mild loss of disc height at L1-2 and L2-3. SPINAL CANAL: -No abnormal developmental findings. CONUS MEDULLARIS: -Terminates at T12-L1. Morphology and signal is normal. INTRADURAL NERVE ROOTS: - Within normal limits. Axial Disc Space Images: T12-L1: There is no central canal or neural foraminal narrowing. L1-L2: Shallow concentric disc bulge present, extending into the bilateral foraminal zones. Mild hypertrophic degenerative facet changes. There is no central canal or lateral recess stenosis. There is mild bilateral neural foraminal stenosis. L2-L3: Shallow concentric disc bulge present with superimposed bilateral foraminal disc protrusions. There is annular fissuring in the left lateral zone. There are mild to moderate hypertrophic degenerative facet changes, with mild posterior ligamentous thickening/infolding. There is mild central canal narrowing, mild bilateral subarticular recess narrowing, and mild to moderate left and mild right neural foraminal narrowing. L3-L4: Shallow concentric disc bulge present with superimposed bilateral foraminal disc protrusions. There is annular fissuring in the right lateral zone. There are mild hypertrophic degenerative facet changes present with posterior ligamentous infolding/thickening. Combination of findings is resulting in mild central canal stenosis, mild bilateral subarticular recess stenosis, and mild to moderate left and mild right neural foraminal narrowing. L4-L5: Minimal disc bulge present. Annular fissuring present in the left foraminal zone. Mild hypertrophic degenerative facet changes bilaterally with mild posterior ligamentous infolding. Minimal central canal narrowing. No subarticular recess narrowing. Mild bilateral neural foraminal narrowing. L5-S1: Minimal disc bulge present with central annular fissuring. No significant central canal or neural foraminal narrowing. IMAGED SI JOINTS: -Mild degenerative arthritis. PARAVERTEBRAL AND INCLUDED EXTRASPINAL SOFT TISSUES: -Normal. The aorta is normal in caliber. MR/MR lumbar spine wo con IMPRESSION: 1. Mild lumbar spondylosis as detailed. 2. No high-grade central canal, lateral recess, or neural foraminal narrowing. 3. Please see the body the report for details. Electronically signed by: Abdias Luna MD 08/31/2024 09:59 AM EDT Dictated By: Abdias Luna MD Signed By: <Electronically signed by Abdias Luna MD in OV> 08/31/24 0959 DD/ 0730 TD/TT: 08/31/24 0820 [employer] Investigator: Procedure Note Donotuseinterpreter, Image - 08/31/[address] [place] [address] Magnetic Resonance Report Signed Patient: Jodi Scott [facility]#: [id number] 98 : 1970Acct:[id number] Age/Sex: 54 / FADM Date: 08/31/24 Loc: HO.MRI Attending Dr: Pramod Elizondo MD Ordering Physician: PRAMOD ELIZONDO MD Date of Service: 08/31/24 Procedure(s): MR lumbar spine wo con Accession Number(s): [id number] cc: PRAMOD ELIZONDO MD; Karian Wood MD EXAMINATION: MR LUMBAR SPINE WITHOUT CONTRAST CLINICAL INFORMATION: Worsening right low back pain with right lower extremity radiculopathy. COMPARISON: No prior MRI. Correlation made with lumbar radiographs 07/11/2024. TECHNIQUE: Multiplanar multisequence MR imaging of the lumbar spine was done without IV contrast. Examination was performed on a 1.5 Betsey Siemens magnet, utilizing standard sequences. FINDINGS: CORONAL ALIGNMENT: -There is minimal right convex scoliosis. SAGITTAL ALIGNMENT: - There is a normal lumbar lordosis. -There are no subluxations. LUMBOSACRAL JUNCTION: -Normal. There are 5 ips-qkk-lxskhhm lumbar-type vertebral bodies. VERTEBRAL BODIES/BONE MARROW: -No compression deformities or gross fractures. Normal vertebral stature. -Minimal edematous type endplate changes present at L2-3. -Mild fatty type endplate changes L1-2 and L2-3. -No abnormal infiltrating bone marrow signal. DISCS: -Mild diffuse loss of disc signal. -Mild loss of disc height at L1-2 and L2-3. SPINAL CANAL: -No abnormal developmental findings. CONUS MEDULLARIS: -Terminates at T12-L1. Morphology and signal is normal. INTRADURAL NERVE ROOTS: - Within normal limits. Axial Disc Space Images: T12-L1: There is no central canal or neural foraminal narrowing. L1-L2: Shallow concentric disc bulge present, extending into the bilateral foraminal zones. Mild hypertrophic degenerative facet changes. There is no central canal or lateral recess stenosis. There is mild bilateral neural foraminal stenosis. L2-L3: Shallow concentric disc bulge present with superimposed bilateral foraminal disc protrusions. There is annular fissuring in the left lateral zone. There are mild to moderate hypertrophic degenerative facet changes, with mild posterior ligamentous thickening/infolding. There is mild central canal narrowing, mild bilateral subarticular recess narrowing, and mild to moderate left and mild right neural foraminal narrowing. L3-L4: Shallow concentric disc bulge present with superimposed bilateral foraminal disc protrusions. There is annular fissuring in the right lateral zone. There are mild hypertrophic degenerative facet changes present with posterior ligamentous infolding/thickening. Combination of findings is resulting in mild central canal stenosis, mild bilateral subarticular recess stenosis, and mild to moderate left and mild right neural foraminal narrowing. L4-L5: Minimal disc bulge present. Annular fissuring present in the left foraminal zone. Mild hypertrophic degenerative facet changes bilaterally with mild posterior ligamentous infolding. Minimal central canal narrowing. No subarticular recess narrowing. Mild bilateral neural foraminal narrowing. L5-S1: Minimal disc bulge present with central annular fissuring. No significant central canal or neural foraminal narrowing. IMAGED SI JOINTS: -Mild degenerative arthritis. PARAVERTEBRAL AND INCLUDED EXTRASPINAL SOFT TISSUES: -Normal. The aorta is normal in caliber. MR/MR lumbar spine wo con IMPRESSION: 1. Mild lumbar spondylosis as detailed. 2. No high-grade central canal, lateral recess, or neural foraminal narrowing. 3. Please see the body the report for details. Electronically signed by: Abdias Luna MD 08/31/2024 09:59 AM EDT Dictated By: Abdias Luna MD Signed By: <Electronically signed by Abdias Luna MD in OV> 08/31/24 0959 DD/ 0730 TD/TT: 08/31/24 0820 [facility] Investigator: Pramod Elizondo MD IMG MRI PROCEDURES Final Result * BI Mammogram Screening Tomosynthesis Bilateral (07/12/2024 9:25 AM EDT) Anatomical Region Laterality Modality Breast Bilateral Mammography 07/12/2024 9:25 AM EDT Narrative 07/17/2024 9:44 PM EDT [facility] [address] [place] [address] Mammography Report Signed Patient: Jodi Scott MR#: [id number] 98 : 1970 Acct:[id number] Age/Sex: 54 / F ADM Date: 07/12/24 Loc: DINESH Attending Dr: Karina Wood MD Ordering Physician: Karina Wood MD Results: 1N egative Date of Service: 07/12/24 Follow Up: 1 Year From Orig ina Mammogram Procedure(s): MM tomosynthesis screening BI Accession Number(s): [id number] cc: Karina Wood MD EXAMINATION: MM SCREENING DIGITAL BREAST TOMOSYNTHESIS, BILATERAL CLINICAL INFORMATION: Screening. Asymptomatic. COMPARISON: Mammography: Comparison is made with available priors TECHNIQUE: Digital breast mammography with tomosynthesis is performed in both the craniocaudal and mediolateral oblique views along with computer-aided detection (CAD). FINDINGS: There are scattered areas of fibroglandular density (ACR BI-RADS breast composition Category b). There are no significant masses, abnormal calcifications, or other abnormalities. MM/MM tomosynthesis screening BI IMPRESSION: No mammographic evidence of malignancy. ASSESSMENT: BI-RADS BI-RADS 1 - Negative RECOMMENDATION: Routine annual mammography screening. 1 year F/U This examination should not preclude the clinical evaluation of a suspicious palpable abnormality. This patient's information was entered into a reminder system with a target due date for their next mammogram. Electronically signed by: Guillermina Camara DO 07/17/2024 09:41 PM EDT Dictated By: Guillermina Camara DO Signed By: <Electronically signed by Guillermina Camara DO in OV> 07/17/242140 DD/ 0925 TD/TT: 07/12/24 0940 [facility]bi Investigator: Procedure Note Donotuseinterpreter, Image - 07/17/2024 [facility] [address] [place] [address] [place] [address] Mammography Report Signed Patient: Jodi Scott#: [id number] 98 : 1970Acct:[id number] Age/Sex: 54 / FADM Date: 07/12/24 Loc: HO.MAMMO Attending Dr: Karina Wood MD Ordering Physician: Karina Wood MDResults: 1N egative Date of Service: 07/12/24Follow Up: 1 Year From Orig ina Mammogram Procedure(s): MM tomosynthesis screening BI Accession Number(s): [id number] cc: Karina Wood MD EXAMINATION: MM SCREENING DIGITAL BREAST TOMOSYNTHESIS, BILATERAL CLINICAL INFORMATION: Screening. Asymptomatic. COMPARISON: Mammography: Comparison is made with available priors TECHNIQUE: Digital breast mammography with tomosynthesis is performed in both the craniocaudal and mediolateral oblique views along with computer-aided detection (CAD). FINDINGS: There are scattered areas of fibroglandular density (ACR BI-RADS breast composition Category b). There are no significant masses, abnormal calcifications, or other abnormalities. MM/MM tomosynthesis screening BI IMPRESSION: No mammographic evidence of malignancy. ASSESSMENT: BI-RADS BI-RADS 1 - Negative RECOMMENDATION: Routine annual mammography screening. 1 year F/U This examination should not preclude the clinical evaluation of a suspicious palpable abnormality. This patient's information was entered into a reminder system with a target due date for their next mammogram. Electronically signed by: Guillermina Camara DO 07/17/2024 09:41 PM EDT Dictated By: Guillermina Camara DO Signed By: <Electronically signed by Guillermina Camara DO in OV> 07/17/24 2141 DD/ 0925 TD/TT: 07/12/24 0940 [facility] Investigator: Karina Wood MD IMG BI PROCEDURES Final Re sult * (ABNORMAL) Hemoglobin A1c (07/11/2024 10:22 AM EDT) Hemoglobin A1c 6.2(H) <6.0 % [facility] Comment:Hemoglobin A1C Refer ence Range Adults: 4.8 - 6.0 % Non diabetic: < 6.0 % Goal: < 7.0 %Additional Action Suggested: > 8.0 %Note: Hemoglobin A1c results are invalid for patients with abnormal amounts of HbF. Blood transfusions may impact the HbA1c concentration in the patient sample. Estimated Average Glucose 131 mg/dL [facility] Comment:eAG = Estimated ave rage glucose which is %A1C expressed asaverage glucose, using the formula of the L6E-LdxbyawXxeutjv Glucose study (ADAG), Diabetes Care, Vol.31,#8,Oct. 2007 Blood Venous blood specimen / Unknown 07/11/2024 10:22 AM EDT 07/11/2024 11:08 AM EDT Karina Wood MD LAB BLOOD ORDERABLES Final Result Performing Organization Address City/[facility] Co de Phone Number [facility] [address] [place] [phone] * (ABNORMAL) Lipid Panel, Standard (03/29/2024 9:40 AM EST) Triglycerides 119 <150 mg/dL [facility] Comment:Desirable Triglyceri de: less than 150 mg/dLBorderline High Triglyceride 150-199 mg/dLHigh Triglyceride: 200-499 mg/dLVery High Triglyceride: greater than or equal to 5OO mg/dL Cholesterol 135 <200 mg/dL [facility] Comment:Desirable Cholestero l: less than 200 mg/dLBorderline High Cholesterol: 200-239 mg/dLHigh Cholesterol: greater than 239 mg/dL LDL Cholesterol Calculated 80 <100 mg/dL [facility] Comment:Desirable LDL: less than 100 mg/dLNear Optimal/Above Optimal LDL: 110- 129 mg/dLBorderline High LDL: 130-159 mg/dLHigh LDL: 160-189 mg/dLVery High LDL: greater than or equal to 190 mg/dL HDL Cholesterol 32(L) >40 mg/dL [facility] Comment:Desirable HDL: great er than 40 mg/dL Note: This HDL assay may give artificially low results in patients with liver disease. Blood Venous blood specimen / Unknown 03/29/2024 9:40 AM EST 03/29/2024 11:17 AM EST Karina Wood MD LAB BLOOD ORDERABLES Final Result Performing Organization Address City/[facility]/ZIP Co de Phone Number [facility] [address] [place] [phone] * CT Lung Screening Low dose (08/28/2023 10:30 AM EDT) Anatomical Region Laterality Modality Lung Computed Tomogra phy 08/28/2023 10:3 0 AM EDT Narrative 09/18/2023 4:39 PM EDT [address] [address] [address] Scan Report Signed Patient: Jodi Scott MR#: [id number] 98 : 1970 Acct:[id number] Age/Sex: 53 / F ADM Date: 08/28/23 Loc: HO.CT Attending Dr: Kisha Green PA-C Ordering Physician: Kisha Green PA-C Date of Service: 08/28/23 Procedure(s): CT lung screening Accession Number(s): [id number] cc: Karina Wood MD; Kisha Green PA-C EXAMINATION: CT LOW-DOSE SCREENING CHEST WITHOUT CONTRAST CLINICAL INFORMATION: Nicotine dependence, cigarettes, uncomplicated. The patient is a current smoker with a 29 pack-year history of smoking. COMPARISON: Chest x-ray 09/14/2018. TECHNIQUE: Multidetector volumetric CT imaging of the chest is performed on a Siemens SOMATOM Definition scanner without contrast using low dose technique. Additional 2D coronal and sagittal reformatted images and axial 3D maximum intensity projection (MIP) images are generated on the CT workstation. This CT examination was performed using dose optimization techniques as appropriate, variously including the following: *Automated exposure control *Adjustment of mA and/or kV according to patient size (this includes techniques or standardized protocols for targeted exams where dose is matched to indication/reason for exam; i.e. extremities or head) *Use of iterative reconstruction technique TOTAL EXAM DLP: 58 mGy-cm. CTDIvol: 1.85 mGy. FINDINGS: PULMONARY NODULES: No suspicious pulmonary nodules. There is a tiny punctate left lower lobe calcified granuloma. There is a 3 mm perifissural nodule in the right lower lobe (5:197) LUNGS: Lungs bilaterally symmetrically expanded. No focal lung nodule or mass. No effusion or pneumothorax. Central airways patent. MEDIASTINUM: No mediastinal, hilar or axillary adenopathy or free fluid collection. There is a calcified left hilar lymph node present. CORONARY ARTERY CALCIFICATION: None visualized on this study. THYROID GLAND: Unremarkable to the extent seen. CARDIOVASCULAR STRUCTURES: Aortic and heart size normal. No pericardial effusion. CHEST WALL/AXILLA: Unremarkable. UPPER ABDOMEN: Included portions of the solid organs in the upper abdomen unremarkable on noncontrast imaging. OSSEOUS STRUCTURES: No suspicious focal findings. CT/CT lung screening IMPRESSION: 1. No evidence of pulmonary malignancy. 2. Evidence of prior granulomatous disease. 3. Incidental findings (s category): No incidental findings. ASSESSMENT: Lung-RADS Category 2: Benign appearance or behavior of nodules. N/A RECOMMENDATION: Continued routine annual low-dose CT lung screening in 1 year is recommended. An order for CT CHEST LOW DOSE CANCER SCREENING ([id number]) can be placed. Dictated By: Wei Jane MD Signed By: <Electronically signed by Wei Jane MD in OV> 09/18/23 1635 DD/ 1030 TD/TT: Fbi Investigator: SS Procedure Note Donotuseinterpreter, Image - 09/18/[address] [place] [address] [address] Scan Report Signed Patient: Jodi Scott NMR#: [id number] 98 : 1970Acct:[id number] Age/Sex: 53 / FADM Date: 08/28/23 Loc: HO.CT Attending Dr: Kisha Green PA-C Ordering Physician: Kisha Green PA-C Date of Service: 08/28/23 Procedure(s): CT lung screening Accession Number(s): [id number] cc: Karina Wood MD; Kisha Green PA-C EXAMINATION: CT LOW-DOSE SCREENING CHEST WITHOUT CONTRAST CLINICAL INFORMATION: Nicotine dependence, cigarettes, uncomplicated. The patient is a current smoker with a 29 pack-year history of smoking. COMPARISON: Chest x-ray 09/14/2018. TECHNIQUE: Multidetector volumetric CT imaging of the chest is performed on a Siemens SOMATOM Definition scanner without contrast using low dose technique. Additional 2D coronal and sagittal reformatted images and axial 3D maximum intensity projection (MIP) images are generated on the CT workstation. This CT examination was performed using dose optimization techniques as appropriate, variously including the following: *Automated exposure control *Adjustment of mA and/or kV according to patient size (this includes techniques or standardized protocols for targeted exams where dose is matched to indication/reason for exam; i.e. extremities or head) *Use of iterative reconstruction technique TOTAL EXAM DLP: 58 mGy-cm. CTDIvol: 1.85 mGy. FINDINGS: PULMONARY NODULES: No suspicious pulmonary nodules. There is a tiny punctate left lower lobe calcified granuloma. There is a 3 mm perifissural nodule in the right lower lobe (5:197) LUNGS: Lungs bilaterally symmetrically expanded. No focal lung nodule or mass. No effusion or pneumothorax. Central airways patent. MEDIASTINUM: No mediastinal, hilar or axillary adenopathy or free fluid collection. There is a calcified left hilar lymph node present. CORONARY ARTERY CALCIFICATION: None visualized on this study. THYROID GLAND: Unremarkable to the extent seen. CARDIOVASCULAR STRUCTURES: Aortic and heart size normal. No pericardial effusion. CHEST WALL/AXILLA: Unremarkable. UPPER ABDOMEN: Included portions of the solid organs in the upper abdomen unremarkable on noncontrast imaging. OSSEOUS STRUCTURES: No suspicious focal findings. CT/CT lung screening IMPRESSION: 1. No evidence of pulmonary malignancy. 2. Evidence of prior granulomatous disease. 3. Incidental findings (s category): No incidental findings. ASSESSMENT: Lung-RADS Category 2: Benign appearance or behavior of nodules. N/A RECOMMENDATION: Continued routine annual low-dose CT lung screening in 1 year is recommended. An order for CT CHEST LOW DOSE CANCER SCREENING ([id number]) can be placed. Dictated By: Wei Jane MD Signed By: <Electronically signed by Wei Jane MD in OV> 09/18/23 1635 DD/ 1030 TD/TT: [facility]bi Investigator: ERNESTO [facility] External Provider IMG CT PROCEDURES Final Result * Hepatitis C Antibody with Reflex to HCV, RNA, Quantitative, Real-Time PCR (08/27/2022 10:12 AM EDT) Hepatitis C Antibody NON-REACT FARHAN NON-REACT FARHAN [facility] Comment: HCV antibody was non-reactive. There is no laboratory evidence of HCV infection. In most cases, no further action is required. However, if recent HCV exposure is suspected, a test for HCV RNA (test code 03902) is suggested. For additional information please refer to http://[employer]/faq/YZG94g5 (This link is being provided for informational/ educational purposes only.) Blood Venous blood specimen / Unknown 08/27/2022 10:12 AM EDT 08/27/2022 10:13 AM EDT Narrative [facility] - 09/01/2022 12:38 AM EDT FASTING:YES REC'D IN [place] FASTING: YES us Karina Wood MD LAB BLOOD ORDERABLES Final Result [facility] [address], [place] [address] [facility] [address] [place] [address] * HIV-1/2 Antigen and Antibodies, Fourth Generation, with Reflexes (08/27/2022 10:12 AM EDT) Pathologist [facility] HIV Antigen/Antibody, 4th Generation NON-REAC TIVE NON-REAC TIVE [facility] Comment: HIV-1 antigen and HIV-1/HIV-2 antibodies were not detected. There is no laboratory evidence of HIV infection. PLEASE NOTE: This information has been disclosed to you from records whose confidentiality may be protected by state law. If your state requires such protection, then the state law prohibits you from making any further disclosure of the information without the specific written consent of the person to whom it pertains, or as otherwise permitted by law. A general authorization for the release of medical or other information is NOT sufficient for this purpose. For additional information please refer to http://[facility]/faq/MAI413 (This link is being provided for informational/ educational purposes only.) The performance of this assay has not been clinically validated in patients less than 2 years old. Blood Venous blood specimen / Unknown 08/27/2022 10:12 AM EDT 08/27/2022 10:13 AM EDT Narrative [facility] - 09/01/2022 12:38 AM EDT FASTING:YES REC'D IN [place] FASTING: YES Karina Wood MD LAB BLOOD ORDERABLES Final Result Performing Organization Address City/[facility] Co de Phone Number [facility] [address] [facility], [facility], [place] [address] [facility] [address] [place] [address] * Colonoscopy (07/12/2021) Colonoscopy tubular adenoma with Dr. Ortega Historical Provider HEALTH MAINTENANCE Final Result * Pap Smear (12/26/2020) Pap Negative for intraephithelial lesion or malignancy Negative for intraephithelial lesion or malignancy, Other HPV Not Detected Undetected, Indeterminate, Quantitative, Not Detected Historical Provider HEALTH MAINTENANCE Final Result * Pap Smear (12/26/2020 12:00 AM EDT) Swab Historical Provider LAB CYTOLOGY ORDERABLES F inal Result Performing Organization Address City/[facility] Co de Phone Number IMAGING from Last 3 Months or Most Recently Relevant to Health Maintenance Insurance [id number] Care Teams [employer] Power Plant Operator Relationship Specialty Start Date End Date [place], MD Karina [address] [place] [address] PCP - General Family Medicine 10/03/16 Marisel Alcala MD [address] [place] [address] Orthopaedic Surgery 03/31/24 Janel Lai [address] 3[address] Floor [place], [place] Gastroenterology 03/31/24 Amy Shukla, Cassandra [address] [place] [address] Pharmacist Internal Medicine 07/15/24 Leeroy Cardenas MD [address] [place] [address] Rheumatology 09/07/24
--- OUTSIDE RECORDS SUMMARY | 2024-11-01 11:19 | XMS_ITS | Encounter Summary ---
Author Organization [employer] Address [address] [facility] 7t [place] [address] Care Team Providers Care Hairmasters Manager Name Role Phone Karina Wood MD Primary Care Provider [phone] Marisel Alcala MD Unavailable Janel Lai Unavailable Amy Shukla PharmD Unavailable [phone] Leeroy Cardenas MD Unavailable [phone] Reason for Visit * Reason Onset Date Comments Nurse Triage 12/08/2023 Encounter Details Date Type Department Care Team (Late st Contact Info) Description 12/08/2023 Telephone [facility] [address] [place], [place] [phone] Karina Wood MD [address] [place], [place] [phone] Nurse Triage Social History Tobacco Use Types [...] the past 12 months, has t he [employer], gas, oil or water company threatened to [...] become worse * Telephone Encounter - Meghan Keshia - 12/08/2023 12:47 PM EDT Symptom: Abdominal Pain - Female - Not Outcome: Schedule an appointment to be seen within 24 hours Reason: Caller denied all higher acuity questions The caller accepted this outcome. documented in this encounter Plan of Treatment Upcoming Encounters Date Type Department Care Team (Late st Contact Info) Description 01/11/2025 9:30 AM EST Office Visit [facility] [address] [place] [address] Karina Wood MD [address] [place] [address] 01/18/2025 9:00 AM EST Telemedicine [facility] [address] [place] [address] Amy Shukla, PharmD [address] [place] [address] 02/06/2025 10:30 AM EST Office Visit [facility] [address] [place] [address] Annamarie Loja, OD [address] [place] [address] documented as of this encounter Goals Goal Patient Goal Type Associated Problems Recent Progress Patient-Stated? Author Smoking cessation General No Amy Verdugo, PharmD documented as of this encounter Visit Diagnoses Not on filedocumented in this encounter Additional Health Concerns Assessment Noted Time PHQ-9 Depression Total Score: 14 05/2 024 3:23 PM EDT documented as of this encounter Care Teams Hairmasters Manager Relationship Specialty Start Date End Date Karina Wood MD [address] [place] [phone] PCP - General Family Medicine 10/03/16 Marisel Alcala MD [address] [place] [address] Orthopaedic Surgery 03/31/24 Janel Lai [address] [place] [address] Gastroenterology 03/31/24 Amy Shukla, MalvinD [address] [place] [address] Pharmacist Internal Medicine 07/15/24 Leeroy Cardenas MD [address] [place] [address] Rheumatology 09/07/24 documented as of this encounter
--- OUTSIDE RECORDS SUMMARY | 2024-11-01 11:19 | XMS_ITS | Encounter Summary ---
Author Organization [employer] Address [address] [facility] 7t [place] [address] Care Team Providers Care Public Safety Dispatcher Name Role Phone Karina Wood MD Primary Care Provider [phone] Marisel Alcala MD Unavailable Janel Lai Unavailable Amy Shukla PharmD Unavailable Leeroy Cardenas MD Unavailable [phone] Reason for Visit * Reason Comments Med Refill Encounter Details Date Type Department Care Team (Late st Contact Info) Description 10/04/[address] [facility]INE [address] [place], [place] [phone] Karina Wood MD [address] [place], [place] [phone] Fibromyalgia Social History Tobacco Use Types Packs/Day [...] 9:30 AM EST Office Visit [facility] [address] [place] [address] Karina Wood MD [address] [place] [address] 01/18/2025 9:00 AM EST Telemedicine [facility]INE [address] [place] [address] Amy Shukla, PharmD [address] [place] [address] 02/06/2025 10:30 AM EST Office Visit [facility] OPTOMETRY [address] [place] [address] Annamarie Loja OD [address] [place] [address] documented as of this encounter Goals Goal Patient Goal Type Associated Problems Recent Progress Patient-Stated? Author Smoking cessation General No Amy Verdugo, PharmD documented as of this encounter Visit Diagnoses Diagnosis Fibromyalgia Unspecified myalgia and myositis documented in this encounter Additional Health Concerns Assessment Noted Time PHQ-9 Depression Total Score: 14 024 3:23 PM EDT documented as of this encounter Care Teams Public Safety Dispatcher Relationship Specialty Start Date End Date Karina Wood MD [address] [place] [address] PCP - General Family Medicine 10/03/16 Marisel Alcala MD [address] [place] [address] Orthopaedic Surgery 03/31/24 Janel Lai [address] 3rd [place] [address] Gastroenterology 03/31/24 Amy Shukla PharmD [address] [place] [address] Pharmacist Internal Medicine 07/15/24 Leeroy Cardenas MD [address] [place] [address] Rheumatology 09/07/24 documented as of this encounter
--- OUTSIDE RECORDS SUMMARY | 2024-11-01 11:20 | XMS_ITS | Encounter Summary ---
Author Organization [employer] Address [address] [facility] 7t [place] [address] Care Team Providers Care Radio Station Audio Engineer Name Role Phone Karina Wood MD Primary Care Provider [phone] Marisel Alcala MD Unavailable Janel Lai Unavailable Amy Shukla PharmD Unavailable Leeroy Cardenas MD Unavailable [phone] Reason for Visit * Reason Onset Date Comments FYI 04/04/2024 Encounter Details Date Type Department Care Team (Late Contact Info) Description 04/04/2024 Telephone [facility] [address] [place], [place] [phone] Karina Wood MD [address] [place], [place] [phone] FYI Social History Tobacco Use Types Packs/Day [...] for CT Scan. Please contact pt at [phone]. (Lao Speaker) * Telephone Encounter - Roland Lopez - 04/04/2024 9:46 AM EST Tc from pt stating she has a CT Scan she needs done seemingly urgent but has not received a call tohave CT Scan done. Pt states she was advised to contact PCP if she did not receive a call for CT Scan. Please contact pt at [phone]. (Lao Speaker) documented in this encounter Plan of Treatment Upcoming Encounters Date Type Department Care Team ([facility] st Contact Info) Description 01/11/2025 9:30 AM EST Office Visit [facility] [address] [place] [address] Karina Wood MD [address] [place] [address] 01/18/2025 9:00 AM EST Telemedicine [facility] [address] [place] [address] Amy Shukla, PharmD [address] [place] [address] 02/06/2025 10:30 AM EST Office Visit [facility] [address] [place] [address] Annamarie Loja, OD [address] [place] [address] documented as of this encounter Goals Goal Patient Goal Type Associated Problems Recent Progress Patient-Stated? Author Smoking cessation General No Amy Verdugo PharmD documented as of this encounter Visit Diagnoses Not on filedocumented in this encounter Additional Health Concerns Assessment Noted Time PHQ-9 Depression Total Score: 11 03/25/ 025 10:09 AM EST documented as of this encounter Care Teams Radio Station Audio Engineer Relationship Specialty Start Date End Date Karina Wood MD [address] [place] [address] PCP - General Family Medicine 10/03/16 Marisel Alcala MD [address] [place] [address] Orthopaedic Surgery 03/31/24 Janel Lai [address] 3rd [place] [address] Gastroenterology 03/31/24 Amy Shukla, Cassandra [address] [place] [address] Pharmacist Internal Medicine 07/15/24 Leeroy Cardenas MD [address] [place] [address] Rheumatology 09/07/24 documented as of this encounter
--- OUTSIDE RECORDS SUMMARY | 2024-11-01 11:20 | XMS_ITS | Encounter Summary ---
Author Organization [employer] Address [address] [facility] [address] 7t [place] [address] Care Team Providers Care Manager Mechanical Maintenance Name Role Phone Montcalm, Karina FAY Primary Care Provider [phone] Marisel Alcala MD Unavailable [phone] Janel Lai Unavailable Amy Shukla PharmD Unavailable [phone] Leeroy Cardenas MD Unavailable [phone] Encounter Details Date Type Department Care Team (Latest Contact Info) Description 11/01/2024 Travel Social History Tobacco Use Types Packs/Day [...] AM EDT documented as of this encounter Functional Status * Over the past 2 weeks, how often have you been bothered by any of the following problems? Question Answer Date of Assessment Author Patient Health Questionnaire-2 Score 2 10/08 10:02 AM EDT Octavio Hastings [place] * Little interest or pleasure in doing things Answer Date of Assessment Author Several days 11/01/2024 10:02 AM EDT Miriam Hastings MA * Feeling down, depressed, [...] 10:02 AM EDT Benjamín Hastings MA * Poor appetite or overeating Answer Date of Assessment Author Nearly every day 11/01/2024 10:02 AM EDT Benjamín Hastings MA * Feeling bad about yourself - or that you are a failure or have let yourself or your family down Answer Date of Assessment Author Not at all 11/01/2024 10:02 AM EDT Miriam Hastings MA * Trouble concentrating on things, such as reading the newspaper or watching television Answer Date of Assessment Author Nearly every day 11/01/2024 10:02 AM EDBenjamín Hicks MA * Moving or speaking so slowly that other people could have noticed? Or the opposite - being so fidgety or restless that you have been moving around a lot more than usual. Answer Date of Assessment Author Not at all 11/01/2024 10:02 AM EDT Miriam Hastings MA * Thoughts that you would be better off or hurting yourself in some way Answer Date of Assessment Author Not at all 11/01/2024 10:02 AM EDMiriam Hicks MA * Patient Health Questionnaire-9 Score Answer Date of Assessment Author 14 11/01/2024 10:02 AM EDT Miriam Hastings MA * How difficult have these problems made it for you to do your work, take care of things at home, or get along with other people? Answer Date of Assessment Author Somewhat difficult 11/01/2024 10:02 AM EDT Octavio Hastings [place] documented as of this encounter Plan of Treatment Upcoming Encounters Date Type Department Care Team (Late st Contact Info) Description 01/11/2025 9:30 AM EST Office Visit [facility] [address] [place] [address] Karina Wood MD [address] [place] [address] 01/18/2025 9:00 AM EST Telemedicine [facility] [address] [place] [address] Amy Shukla PharmD [address] [place] [address] 02/06/2025 10:30 AM EST Office Visit [facility] [address] [place] [address] Annamarie Loja, OD [address] [place] [address] documented as of this encounter Goals Goal Patient Goal Type Associated Problems Recent Progress Patient-Stated? Author Smoking cessation General No Amy Verdugo, PharmD documented as of this encounter Visit Diagnoses Not on filedocumented in this encounter Additional Health Concerns Assessment Noted Time PHQ-9 Depression Total Score: 14 025 10:02 AM EDT documented as of this encounter Care Teams Manager Mechanical Maintenance Relationship Specialty Start Date End Date Karina Wood MD [address] [place] [address] PCP - General Family Medicine 10/03/16 Marisel Alcala MD [address] [place] [address] Orthopaedic Surgery 03/31/24 Janel Lai [address] 3rd [place] [address] Gastroenterology 03/31/24 Amy Shukla, PharmD [address] [place] [address] Pharmacist Internal Medicine 07/15/24 Leeroy Cardenas MD [address] [place] [address] Rheumatology 09/07/24 documented as of this encounter
--- OUTSIDE RECORDS SUMMARY | 2024-11-01 11:20 | XMS_ITS | Encounter Summary ---
Author Organization [employer] Address [address] [facility] 7t [place] [address] Care Team Providers Care Catering Convention Services Manager Name Role Phone Karina Wood MD Primary Care Provider Amy Shukla PharmD Unavailable [phone] Marisel Alcala MD Unavailable [phone] Janel Lai Unavailable Amy Shukla PharmD Unavailable [phone] Leeroy Cardenas MD Unavailable Reason for Visit * Reason Comments Med Refill Encounter Details Date Type Department Care Team (Late Contact Info) Description 08/27/2022 Refill [facility] [address] [place], [place] [phone] Karina Wood MD [address] [place], [place] [phone] Social History Tobacco Use Types Packs/Day Years [...] Description 01/11/2025 9:30 AM EST Office Visit [facility] [address] [place] [address] Karina Wood MD [address] [place] [address] 01/18/2025 9:00 AM EST Telemedicine [facility] [address] [place] [address] Amy Shukla, PharmD [address] [place] [address] 02/06/2025 10:30 AM EST Office Visit [facility] [address] [place] [address] Annamarie Loja, OD [address] [place] [address] documented as of this encounter Goals Goal Patient Goal Type Associated Problems Recent Progress Patient-Stated? Author Smoking cessation General No Amy Verdugo PharmD documented as of this encounter Visit Diagnoses Not on filedocumented in this encounter Care Teams Catering Convention Services Manager Relationship Specialty Start Date End Date Karina Wood MD [address] [place] [address] PCP - General Family Medicine 10/03/16 Amy Shukla, PharmD [address] [place] [address] Pharmacist Internal Medicine 07/17/22 01/05/23 Marisel Alcala MD [address] [place] [address] Orthopaedic Surgery 03/31/24 Janel Lai [address] 3rd [place] [address] Gastroenterology 03/31/24 Amy Shukla, MalvinD [address] [place] [address] Pharmacist Internal Medicine 07/15/24 Leeroy Cardenas MD [address] [place] [address] Rheumatology 09/07/24 documented as of this encounter
--- OUTSIDE RECORDS SUMMARY | 2024-11-01 11:20 | XMS_ITS | Encounter Summary ---
Author Organization [employer] Address [address] [facility] 7t [place] [address] Care Team Providers Care Assistant Manager Retail Name Role Phone Karina Wood MD Primary Care Provider [phone] Marisel Alcala MD Unavailable [phone] Janel Lai Unavailable Amy Shukla PharmD Unavailable [phone] Leeroy Cardenas MD Unavailable [phone] Encounter Details Date Type Department Care Team (Late st Contact Info) Description 07/15/2023 Orders Only [facility] [address] [place], [place] [phone] Karina Wood MD [address] [place], [place] [phone] Dyslipidemia (Primary Dx) Social History Tobacco Use [...] 9:30 AM EST Office Visit [facility] [address] [place] [address] Karina Wood MD [address] [place] [address] 01/18/2025 9:00 AM EST Telemedicine [facility] [address] [place] [address] Amy Shukla PharmD [address] [place] [address] 02/06/2025 10:30 AM EST Office Visit [facility] [address] [place] [address] Annamarie Loja, ASHLEY [address] [place] [address] documented as of this encounter Goals Goal Patient Goal Type Associated Problems Recent Progress Patient-Stated? Author Smoking cessation General No Amy Verdugo PharmD documented as of this encounter Procedures Procedure Name Priority Date/Time Associated Diagnosis Comments HEPATIC FUNCTION PANEL Routine 12/28/2023 9:55 AM EDT Dyslipidemia LIPID PANEL, STANDARD Routine 12/28/2023 9:55 AM EDT Dyslipidemia documented in this encounter Results * Hepatic Function Panel (12/28/2023 9:55 AM EDT) Bilirubin, Total 0.4 0.0 - 1.0 mg/dL [facility] Bilirubin, Direct 0.1 0.0 - 0.5 mg/dL [facility] Aspartate Amino Transferase 29 5 - 31 U/L [facility] Alanine Aminotransferase 25 0 - 31 U/L [facility] Total Protein 7.2 6.5 - 8.0 g/dL [facility] Albumin Level 4.0 3.5 - 5.0 g/dL [facility] Alkaline Phosphatase 93 39 - 117 U/L [facility] Blood Venous blood specimen / Unknown 12/28/2023 9:55 AM EDT 12/28/2023 12:05 PM EDT us Karina Wood MD LAB BLOOD ORDERABLES Final Result [facility] [address] [place] [phone] * (ABNORMAL) Lipid Panel, Standard (12/28/2023 9:55 AM EDT) Triglycerides 134 <150 mg/dL [facility] Comment:Desirable Triglyceri de: less than 150 mg/dLBorderline High Triglyceride 150-199 mg/dLHigh Triglyceride: 200-499 mg/dLVery High Triglyceride: greater than or equal to 5OO mg/dL Cholesterol 120 <200 mg/dL [facility] Comment:Desirable Cholestero l: less than 200 mg/dLBorderline High Cholesterol: 200-239 mg/dLHigh Cholesterol: greater than 239 mg/dL LDL Cholesterol Calculated 66 <100 mg/dL [facility] Comment:Desirable LDL: less than 100 mg/dLNear Optimal/Above Optimal LDL: 110- 129 mg/dLBorderline High LDL: 130-159 mg/dLHigh LDL: 160-189 mg/dLVery High LDL: greater than or equal to 190 mg/dL HDL Cholesterol 28(L) >40 mg/dL [facility] Comment:Desirable HDL: great er than 40 mg/dL Note: This HDL assay may give artificially low results in patients with liver disease. Blood Venous blood specimen / Unknown 12/28/2023 9:55 AM EDT 12/28/2023 12:05 PM EDT us Karina Wood MD LAB BLOOD ORDERABLES Final Result [facility] [address] [place] [phone] documented in this encounter Visit Diagnoses Diagnosis Dyslipidemia- Primary Other and unspecified hyperlipidemia documented in this encounter Additional Health Concerns Assessment Noted Time PHQ-9 Depression Total Score: 14 024 3:23 PM EDT documented as of this encounter Care Teams Assistant Manager Retail Relationship Specialty Start Date End Date Karina Wood MD [address] [place] [address] PCP - General Family Medicine 10/03/16 Marisel Alcala MD [address] [place] [address] Orthopaedic Surgery 03/31/24 Janel Lai [address] 3rd [place] [address] Gastroenterology 03/31/24 Amy Shukla, MalvinD [address] [place] [address] Pharmacist Internal Medicine 07/15/24 Leeroy Cardenas MD [address] [place] [address] Rheumatology 09/07/24 documented as of this encounter
--- OUTSIDE RECORDS SUMMARY | 2024-11-01 11:20 | XMS_ITS | Encounter Summary ---
Author Organization [employer] Address [address] [facility] 7t [place] [address] Care Team Providers Care Er Rn Name Role Phone Karina Wood MD Primary Care Provider [phone] Marisel Alcala MD Unavailable [phone] Janel Lai Unavailable Amy Shukla PharmD Unavailable Leeroy Cardenas MD Unavailable [phone] Reason for Visit * Reason Onset Date Comments CHART PREP 10/31/2024 Encounter Details Date Type Department Care Team (Late st Contact Info) Description 10/31/2024 Telephone [facility] [address] [place], [place] [phone] Karina Wood MD [address] [place], [place] [phone] CHART PREP Social History Tobacco Use Types Packs/Day Years [...] your housing situation today? I have octavio sing 12/21/[address] you li [...] encounter Miscellaneous Notes * Telephone Encounter - Octavio Hastings [place] - 10/31/2024 6:23 PM EDT Chart Prep Labs: not applicable Images: done MRI Lumbar 08/31/24 Referrals: not applicable Vaccines due: Zoster Screenings: Lung CA screening Overdue care gaps: PHQ-9 documented in this encounter Plan of Treatment Upcoming Encounters Date Type Department Care Team (Late st Contact Info) Description 01/11/2025 9:30 AM EST Office Visit [facility] [address] [place] [address] Karina Wood MD [address] [place] [address] 01/18/2025 9:00 AM EST Telemedicine [facility] [address] [place] [address] Amy Shukla, Cassandra [address] [place] [address] 02/06/2025 10:30 AM EST Office Visit [facility] [address] [place] [address] [place], Annamarie, OD [address] [place] [address] documented as of this encounter Goals Goal Patient Goal Type Associated Problems Recent Progress Patient-Stated? Author Smoking cessation General No Amy Verdugo PharmD documented as of this encounter Visit Diagnoses Not on filedocumented in this encounter Additional Health Concerns Assessment Noted Time PHQ-9 Depression Total Score: 11 025 10:09 AM EST documented as of this encounter Care Teams Er Rn Relationship Specialty Start Date End Date Karina Wood MD [address] [place] [address] PCP - General Family Medicine 10/03/16 Marisel Alcala MD [address] [place] [address] Orthopaedic Surgery 03/31/24 Janel Lai [address] 3rd [place] [address] Gastroenterology 03/31/24 Amy Shukla, PharmD [address] [place] [address] Pharmacist Internal Medicine 07/15/24 Leeroy Cardenas MD [address] [place] [address] Rheumatology 09/07/24 documented as of this encounter
[2024-11-04 18:24] LABS: TS Negative Control Passed; TS Panel A 0; TS Panel B 1; TS Positive Control Passed; TSpotTB Negative (Negative)
== END 2024-11-01 10:33 | disposition home or self-care (01) ==
LOC: HO.HHCL 10:32
PROVIDERS: PCP Family Medicine; Visit Provider Internal Medicine
DX: Z00.00 Encounter for general adult medical examination without abnormal findings (principal); Z11.1 Encounter for screening for respiratory tuberculosis
CPT/HCPCS: 36415; 86481

== ENCOUNTER 2024-11-30 09:32 | Outpatient (AMB) | payer MEDICAID, SELFPAY ==
--- NOTE | 2024-11-30 09:39 | MHC.OFFVIS ---
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/atherosclerotic vascular disease Intake Note: New patient dx acvd seen on CT 05/31 with ekg c/o palpitations at times Flight Engineer Helicopter Required: Yes Flight Engineer Helicopter Name: Glen Simona Allergies trazodone (TRAZODONE) Allergy (Severe, Verified 02/20/24 22:20) SEIZURE Medication List - Last Reconciled 11/30/24 by Matthew Stauffer MD albuterol sulfate 90 mcg/actuation (Ventolin HFA) 2 puffs inhalation Q4H PRN amlodipine 10 mg PO DAILY atorvastatin 40 mg PO BEDTIME cholecalciferol (vitamin D3) 50 mcg PO DAILY cyclobenzaprine 10 mg PO TID PRN esomeprazole magnesium (Nexium) 40 mg PO DAILY ibuprofen 600 mg PO TID PRN lisinopril 10 mg PO QAM mecobalamin (vitamin B12) 1,000 mcg sublingual BEDTIME methylcellulose (laxative) (Citrucel) 500 mg PO DAILY polyethylene glycol 3350 (Miralax) 17 grams PO DAILY pregabalin (Lyrica) 150 mg PO BID quetiapine (Seroquel) 50 mg PO BEDTIME sennosides (Natural Senna Laxative) 8.6 mg PO BEDTIME simethicone (Gas Relief (simethicone)) 125 mg PO TID-QID PRN HPI Comments Details: Thank you for referring Jodi in cardiology consultation today for noted abdominal aortic calcification on recent non vascular imaging. Patient is having lot of spine issues. Complains of numbness in his right arm. Also not able to exercise much and has numbness in her buttocks. Patient has not seen a spine surgeon as yet. One of the imaging suggested abdominal aortic atherosclerosis as she was referred here. She has prior history of hypertension, hyperlipidemia, chronic smoking as well as obesity. Patient has no prior cardiovascular history. Denies any symptoms of actual angina. Although she has limited activity level and does not have exertional chest pain but does have exertional shortness of breath. She denies any orthopnea, PND, leg edema. She has never had prior myocardial infarction. Takes all her medications and smokes about 10 cigarettes a day. No strong family history for premature atherosclerosis. History was obtained with help of runner on. [facility] Medical History Fibromyalgia HTN (hypertension) Elevated cholesterol Asthma Nicotine dependence, cigarettes, uncomplicated History of COVID-19 Gastritis Tubular adenoma of colon Carpal tunnel syndrome of right wrist Surgical History History of carpal tunnel surgery of right wrist History of colonoscopy History of esophagogastroduodenoscopy (EGD) History of meniscectomy of right knee History of bilateral salpingectomy Family History Mother HTN (hypertension) Brother HTN (hypertension) Social History Alcohol intake: current Alcohol intake frequency: a few times a week Alcohol type: beer Patient Tobacco Use Status: Current everyday Tobacco user Years Smoked: (onset 16yo, 1/2-3/4ppd x 38yrs - 22pyh) Review of Systems Const Denies chills, Denies daytime sleepiness, Denies fatigue, Denies fever(s), Denies frequent falls, Denies poor appetite, Denies snoring, Denies stops breathing during sleep, Denies weakness, Denies weight gain and Denies weight loss Eyes Denies loss of vision ENT Denies dizziness and Denies hearing loss Card Denies chest pain, Denies claudication, Denies leg edema, Denies lightheadedness, Denies palpitations, Denies dyspnea, Denies dyspnea on exertion and Denies orthopnea Resp Denies cough, Denies excessive phlegm production, Denies dyspnea, Denies dyspnea on exertion, Denies snoring and Denies wheezing GI Denies abdominal pain, Denies hematochezia, Denies change in bowel habits, Denies nausea and Denies vomiting Denies urinary frequency and Denies dysuria Musc Denies arthralgias, Denies muscle weakness and Denies numbness Skin/Breast Denies nail changes and Denies rash Neuro Denies Abnormal speech present, Denies dizziness, Denies frequent falls, Denies loss of vision, Denies memory loss, Denies numbness and Denies weakness Psych Denies depression and Denies memory loss Endo Denies fatigue and Denies palpitations Ivan/Lymph Reports easy bruising and Reports other (anemia) Aller/Immun Denies wheezing Physical Exam Vital Signs: Last Vital Signs Pulse 68 11/30/24 09:40 BP 124/82 11/30/24 09:40 BMI result Body Mass Index 35.6 Const General: cooperative, comfortable, no acute distress, alert and awake Nutritional Appearance: obese Orientation/consciousness: patient oriented x3 Limitations: no limitations HEENT Head: Yes normocephalic and Yes atraumatic Neck Neck: Yes trachea midline, Yes supple and Yes no JVD Resp Effort & Inspection: normal respiratory effort Auscultation: clear to auscultation bilaterally Cardio Jugular venous distension: no JVD Palpation: normal PMI Rate: regular rate Rhythm: regular rhythm Heart sounds: S1 normal heart sound present, S2 normal heart sound present, no click, no gallops, no murmurs and no rubs Bruits: no carotid bruits GI Auscultation: normal bowel sounds Skin General skin exam: no rashes or lesions noted Neuro General: patient oriented x3 and no focal motor deficits Speech: No Abnormal speech present Extrem General: Yes no clubbing, cyanosis or edema Psych Appearance: grossly normal Office Procedures EKG Details: EKG shows normal sinus rhythm with nonspecific diffuse ST T wave changes with T-wave inversion inferior leads [id number]-[id number], Complete Assessment & Plan Assessment & Plan (1) Abnormal EKG: Code(s): R94.31 - Abnormal electrocardiogram [ECG] [EKG] Category: Medical Plan: Abnormal EKG in this middle-aged woman with multiple risk factors with reduced exercise capacity. Need to rule out structural heart disease especially ruled out hypertensive heart disease and/or myocardial ischemia. Will suggest a vasodilating myocardial perfusion imaging to evaluate for significant obstructive coronary artery disease as a cause for shortness of breath as well as abnormal EKG. Also suggest an echocardiogram to evaluate for LV systolic and diastolic function to evaluate for LV wall thickness to assess for hypertensive heart disease. These tests will be scheduled in near future. The reason for these test was discussed clearly with her and she understands and agrees. If these tests are within normal limits she will need to pursue aggressive treatment of atherosclerosis. See below. (2) Abdominal aortic atherosclerosis: Code(s): I70.0 - Atherosclerosis of aorta Category: Medical Plan: Premature presents of abdominal aortic atherosclerosis suggestive of presence of systemic atherosclerotic process. She has multiple risk factors for the same including smoking, hypertension, hyperlipidemia as well as obesity and inactivity. Strongly discussed about management of atherosclerotic events and pathophysiology of atherosclerosis. Discussed complete smoking cessation, she will be trying for the same. Her blood pressure is currently well optimized on current medication importance of good blood pressure control was discussed. Advised to continue the same. She is currently on high-intensity statin therapy and advised to repeat lipid panel as well as CRP in near future to further guide aggressive lipid modification if needed. Target goal LDL less than 60 mg/dL. Eventually participate in regular physical activity was discussed and she says she has limitations due spine issues. Consider referral to minimally invasive spine surgery institute here. Will follow up in the clinic in 6 weeks time, sooner p.r.n.. Thank you for allowing me to partake in her care Orders: Orders CA lexiscan stress w jessica Today R94.31 - Abnormal electrocardiogram [ECG] [EKG] CA echo transthoracic complete Today R94.31 - Abnormal electrocardiogram [ECG] [EKG] CRP High Sensitivity Today E78.5 - Hyperlipidemia, unspecified, I70.0 - Atherosclerosis of aorta Lipid Panel Today I70.0 - Atherosclerosis of aorta Medications: New aspirin (Ecotrin Low Strength) 81 mg PO DAILY 30 tabs 5RF I70.0 - Atherosclerosis of aorta Coding Level of Care Code New Pt Level 4 (04016) Complex EM visit Add On G2211 Diagnoses Abnormal EKG R94.31 Abdominal aortic atherosclerosis I70.0 CPT Codes EKG - CPT: 12235-[id number], Complete ([id number])
[2024-11-30 09:40] VITALS: BP 124/82; PULSE 68; BMI 35.6
--- OUTSIDE RECORDS SUMMARY | 2024-11-30 11:25 | XMS_ITS | Encounter Summary ---
Author Organization [employer] Address [address] [facility] 7t [place] [address] Care Team Providers Care Child Support Specialist Name Role Phone Karina Wood MD Primary Care Provider Marisel Alcala MD Unavailable [phone] Janel Lai Unavailable Amy Shukla PharmD Unavailable Leeroy Cardenas MD Unavailable [phone] Matthew Stauffer MD Unavailable Reason for Visit * Reason Comments Med Refill Encounter Details Date Type Department Care Team (Late st Contact Info) Description 10/04/2023 Refill [facility] [address] [place], [place] [phone] Karina Wood MD [address] [place], [place] [phone] Fibromyalgia Social History Tobacco Use Types Packs/Day [...] the past 12 months, has t he [employer], gas, oil or water [employer] threatened to shut off services in your [...] Care Team (Late st Contact Info) Description 01/02/2025 9:00 AM EDT Office Visit [facility] [address] [place] [address] Karina Wood MD [address] [place] [address] 01/18/2025 9:00 AM EST Telemedicine [facility] [address] [place] [address] Amy Shukla, PharmD [address] [place] [address] 02/06/2025 10:30 AM EST Office Visit [facility] [address] [place] [address] Annamarie Loja OD [address] [place] [address] documented as of this encounter Goals Goal Patient Goal Type Associated Problems Recent Progress Patient-Stated? Author Smoking cessation General No Amy Verdugo, PharmD documented as of this encounter Visit Diagnoses Diagnosis Fibromyalgia Unspecified myalgia and myositis documented in this encounter Additional Health Concerns Assessment Noted Time PHQ-9 Depression Total Score: 14 024 3:23 PM EDT documented as of this encounter Care Teams Child Support Specialist Relationship Specialty Start Date End Date Karina Wood MD [address] [place] [address] PCP - General Family Medicine 10/03/16 Marisel Alcala MD [address] [place] [address] Orthopaedic Surgery 03/31/24 Janel Lai [address] [facility] 3rd [place] [address] Gastroenterology 03/31/24 Amy Shukla PharmD [address] [place] [address] Pharmacist Internal Medicine 07/15/24 Leeroy Cardenas MD [address] [place] [address] Rheumatology 09/07/24 Matthew Stauffer MD 11 [facility] 3rd [place] [address] Cardiology 11/30/24 documented as of this encounter
--- OUTSIDE RECORDS SUMMARY | 2024-11-30 11:25 | XMS_ITS | Encounter Summary ---
Author Organization [employer] Address [address] [facility] 7t [place] [address] Care Team Providers Care Pencil Inspector Name Role Phone Karina Wood MD Primary Care Provider [phone] Marisel Alcala MD Unavailable [phone] Janel Lai Unavailable Amy Shukla PharmD Unavailable [phone] Leeroy Cardenas MD Unavailable Matthew Stauffer MD Unavailable Reason for Visit * Reason Onset Date Comments Referral 11/30/2024 Encounter Details Date Type Department Care Team (Late st Contact Info) Description 11/30/2024 Telephone [facility] [address] [place], [place] [phone] Karina Wood MD [address] [place], [place] [phone] Referral Social History Tobacco Use Types Packs/Day Years Used Date Smoking Tobacco: Every Day Cigarettes 1 31.7 Started: 1986; Last attempted to quit: 2007 [...] encounter Miscellaneous Notes * Telephone Encounter - Heather Borjas - 11/30/2024 10:48 AM EDT Tc from pt requesting an referral for an specialist for her spine Contact pt at [phone] documented in this encounter Plan of Treatment Upcoming Encounters Date Type Department Care Team (Late st Contact Info) Description 01/02/2025 9:00 AM EDT Office Visit [facility] [address] [place] [address] Karina Wood MD [address] [place], [place] [phone] 01/18/2025 9:00 AM EST Telemedicine [facility] [address] [place] [address] Amy Shukla, Cassandra [address] [place] [address] 02/06/2025 10:30 AM EST Office Visit [facility] [address] [place] [address] [place], Annamarie, OD [address] [place] [address] documented as of this encounter Goals Goal Patient Goal Type Associated Problems Recent Progress Patient-Stated? Author Smoking cessation General No Amy Verdugo PharmD documented as of this encounter Visit Diagnoses Not on filedocumented in this encounter Additional Health Concerns Assessment Noted Time PHQ-9 Depression Total Score: 14 025 10:02 AM EDT documented as of this encounter Care Teams Pencil Inspector Relationship Specialty Start Date End Date Karina Wood MD [address] [place] [address] PCP - General Family Medicine 10/03/16 Marisel Alcala MD [address] [place] [address] Orthopaedic Surgery 03/31/24 Janel Lai [address] 3rd [place] [address] Gastroenterology 03/31/24 Amy Shukla, PharmD [address] [place] [address] Pharmacist Internal Medicine 07/15/24 Leeroy Cardenas MD [address] [place] [address] Rheumatology 09/07/24 Matthew Stauffer MD [address] [place] [address] 3rd Floor [place], [place] [phone] Cardiology 11/30/24 documented as of this encounter
--- OUTSIDE RECORDS SUMMARY | 2024-11-30 11:25 | XMS_ITS | Encounter Summary ---
Author Organization [employer] Address [address] [facility] 7t [place] [address] Care Team Providers Care [employer] Insurance Claim Examiner Name Role Phone Karina Wood MD Primary Care Provider + [phone] Marisel Alcala MD Unavailable [phone] Janel Lai Unavailable Amy Shukla PharmD Unavailable Leeroy Cardenas MD Unavailable [phone] Matthew Stauffer MD Unavailable Encounter Details Date Type Department Care Team (Late st Contact Info) Description 07/15/2023 Orders Only [facility] [address] [place], [place] [phone] Karina Wood MD [address] [place], [place] [phone] Dyslipidemia (Primary Dx) Social History Tobacco Use [...] the past 12 months, has t he [employer], gas, oil or water [employer] threatened to shut off services in your [...] Description 01/02/2025 9:00 AM EDT Office Visit [facility] [address] [place] [address] Karina Wood MD [address] [place] [address] 01/18/2025 9:00 AM EST Telemedicine [facility] [address] [place] [address] Amy Shukla, PharmD [address] [place] [address] 02/06/2025 10:30 AM EST Office Visit [facility] OPTOMETRY [address] [place] [address] Annamarie Loja OD [address] [place] [address] documented as of this encounter Goals Goal [...] Bilirubin, Total 0.4 0.0 - 1.0 mg/dL [facility] Bilirubin, Direct 0.1 0.0 - 0.5 mg/dL [facility] Aspartate Amino Transferase 29 5 - 31 U/L [facility] Alanine Aminotransferase 25 0 - 31 U/L [facility] Total Protein 7.2 6.5 - 8.0 g/dL [facility] Albumin Level 4.0 3.5 - 5.0 g/dL [facility] Alkaline Phosphatase 93 39 - 117 U/L [facility] Blood Venous blood specimen / Unknown 12/28/2023 9:55 AM EDT 12/28/2023 12:05 PM EDT us Karina Wood MD LAB BLOOD ORDERABLES Final Result [facility] [address] [place] [phone] * (ABNORMAL) Lipid Panel, Standard (12/28/2023 9:55 AM EDT) Triglycerides 134 <150 mg/dL [facility] Comment:Desirable Triglyceri de: less than 150 mg/dLBorderline High Triglyceride 150-199 mg/dLHigh Triglyceride: 200-499 mg/dLVery High Triglyceride: greater than or equal to 5OO mg/dL Cholesterol 120 <200 mg/dL [facility] Comment:Desirable Cholestero l: less than 200 mg/dLBorderline High Cholesterol: 200-239 mg/dLHigh Cholesterol: greater than 239 mg/dL LDL Cholesterol Calculated 66 <100 mg/dL [facility] Comment:Desirable LDL: less than 100 mg/dLNear Optimal/Above Optimal LDL: 110- 129 mg/dLBorderline High LDL: 130-159 mg/dLHigh LDL: 160-189 mg/dLVery High LDL: greater than or equal to 190 mg/dL HDL Cholesterol 28(L) >40 mg/dL [facility] Comment:Desirable HDL: great er than 40 mg/dL Note: This HDL assay may give artificially low results in patients with liver disease. Blood Venous blood specimen / Unknown 12/28/2023 9:55 AM EDT 12/28/2023 12:05 PM EDT Karina Wood MD LAB BLOOD ORDERABLES Final Result [facility] [address] [place] [address] [phone] documented in this encounter Visit Diagnoses Diagnosis Dyslipidemia- Primary Other and unspecified hyperlipidemia documented in this encounter Additional Health Concerns Assessment Noted Time PHQ-9 Depression Total Score: 14 024 3:23 PM EDT documented as of this encounter Care Teams Marine Insurance Claim Examiner Relationship Specialty Start Date End Date Karina Wood MD [address] [place] [address] PCP - General Family Medicine 10/03/16 Marisel Alcala MD [address] [place] [address] Orthopaedic Surgery 03/31/24 Janel Lai [address] 3rd [place] [address] Gastroenterology 03/31/24 Amy Shukla, Cassandra [address] [place] [address] Pharmacist Internal Medicine 07/15/24 [place] [address] [place] [phone] Rheumatology 09/07/24 Matthew Stauffer MD [address] [place] [address] 3rd Floor [place] [phone] Cardiology 11/30/24 documented as of this encounter
--- OUTSIDE RECORDS SUMMARY | 2024-11-30 11:25 | XMS_ITS | Encounter Summary ---
Author Organization [employer] Address [address] [facility] 7t [place] [address] Care Team Providers Care Lean Process Deployment Consultant Name Role Phone Karina Wood MD Primary Care Provider [phone] Marisel Alcala MD Unavailable Janel Lai Unavailable Amy Shukla PharmD Unavailable Leeroy Cardenas MD Unavailable [phone] Matthew Stauffer MD Unavailable Reason for Visit * Reason Onset Date Comments FYI 04/04/2024 Encounter Details Date Type Department Care Team (Late st Contact Info) Description 04/04/2024 Telephone [facility] [address] [place], [place] [phone] Karina Wood MD [address] [place], [place] [phone] FYI Social History Tobacco Use Types Packs/Day [...] for CT Scan. Please contact pt at [phone]. (Indian Speaker) * Telephone Encounter - Rolandheike Lopez - 04/04/2024 9:46 AM EST Tc from pt stating she has a CT Scan she needs done seemingly urgent but has not received a call tohave CT Scan done. Pt states she was advised to contact PCP if she did not receive a call for CT Scan. Please contact pt at [phone]. (Indian Speaker) documented in this encounter Plan of Treatment Upcoming Encounters Date Type Department Care Team ([facility] st Contact Info) Description 01/02/2025 9:00 AM EDT Office Visit [facility] [address] [place] [address] Karina Wood MD [address] [place] [address] 01/18/2025 9:00 AM EST Telemedicine [facility] [address] [place] [address] Amy Shukla, PharmD [address] [place] [address] 02/06/2025 10:30 AM EST Office Visit [facility] [address] [place] [address] [place], Annamarie, OD [address] [place] [address] documented as of this encounter Goals Goal Patient Goal Type Associated Problems Recent Progress Patient-Stated? Author Smoking cessation General No Amy Verdugo PharmD documented as of this encounter Visit Diagnoses Not on filedocumented in this encounter Additional Health Concerns Assessment Noted Time PHQ-9 Depression Total Score: 11 025 10:09 AM EST documented as of this encounter Care Teams Lean Process Deployment Consultant Relationship Specialty Start Date End Date Karina Wood MD [address] [place] [address] PCP - General Family Medicine 10/03/16 Marisel Alcala MD [address] [place] [address] Orthopaedic Surgery 03/31/24 Janel Lai [address] 3rd [place] [address] Gastroenterology 03/31/24 Amy Shukla PharmD [address] [place] [address] Pharmacist Internal Medicine 07/15/24 Leeroy Cardenas MD [address] [place] [address] Rheumatology 09/07/24 Matthew Stauffer MD [address] [place] [address] Cardiology 11/30/24 documented as of this encounter
--- OUTSIDE RECORDS SUMMARY | 2024-11-30 11:25 | XMS_ITS | Encounter Summary ---
Author Organization [employer] Address [address] [facility] 7t [place] [address] Care Team Providers Care President [employer] Name Role Phone Karina Wood MD Primary Care Provider [phone] Marisel Alcala MD Unavailable [phone] Janel Lai Unavailable Amy Shukla PharmD Unavailable [phone] Leeroy Cardenas MD Unavailable [phone] Matthew Stauffer MD Unavailable Reason for Visit * Reason Onset Date Comments Nurse Triage 12/08/2023 Encounter Details Date Type Department Care Team (Late st Contact Info) Description 12/08/2023 Telephone [facility] MEDICINE [address] [place], [place] [phone] Karina Wood MD [address] [place], [place] [phone] Nurse Triage Social History Tobacco Use Types [...] the past 12 months, has t he [employer], gas, oil or water [employer] threatened to shut off services in your [...] Description 01/02/2025 9:00 AM EDT Office Visit [facility] [address] [place] [address] Karina Wood MD [address] [place] [address] 01/18/2025 9:00 AM EST Telemedicine [facility]INE [address] [place] [address] Amy Shukla, PharmD [address] [place] [address] 02/06/2025 10:30 AM EST Office Visit [facility] OPTOMETRY [address] [place] [address] Annamarie Loja, ASHLEY [address] [place] [address] documented as of this encounter Goals Goal Patient Goal Type Associated Problems Recent Progress Patient-Stated? Author Smoking cessation General No Amy Verdugo, PharmD documented as of this encounter Visit Diagnoses Not on filedocumented in this encounter Additional Health Concerns Assessment Noted Time PHQ-9 Depression Total Score: 14 05/ 024 3:23 PM EDT documented as of this encounter Care Teams President [employer] Relationship Specialty Start Date End Date Karina Wood MD [address] [place] [address] PCP - General Family Medicine 10/03/16 Marisel Alcala MD [address] [place] [address] Orthopaedic Surgery 03/31/24 Janel Lai [address] 3rd [place] [address] Gastroenterology 03/31/24 Amy Shukla, MalvinD 230 [place] [address] Pharmacist Internal Medicine 07/15/24 Leeroy Cardenas MD [address] [place] [address] Rheumatology 09/07/24 Matthew Stauffer MD [address] 3rd [place] [address] Cardiology 11/30/24 documented as of this encounter
--- OUTSIDE RECORDS SUMMARY | 2024-11-30 11:25 | XMS_ITS | Clinical Summary ---
Author Organization [employer] Address [address] [facility] 7[address] [place] [address] Care Team Providers Care Shipping/Receiving Manager Name Role Phone Karina Wood MD Primary Care Provider [phone] Marisel Alcala MD Unavailable Janel Lai Unavailable Amy Shukla PharmD Unavailable Leeroy Cardenas MD Unavailable Matthew Stauffer MD Unavailable Allergies Active Allergy Reactions Criticality Noted [...] MUSCLE SPASMS 90 tablet 04/06/19 24 Active cyanocobalamin (Vitamin B-12) 1000 MCG [...] or split. 30 tablet 10/13/19 25 Active terbinafine (LamISIL AT) 1 % creamIndication s:Tinea corporis Apply topically 2 times daily. 42 g 3 11/09/19 25 Active QUEtiapine (SEROquel) 50 MG tabletIndicatio ns:Fibromyalgia TAKE 1 TABLET BY MOUTH AT BEDTIME 90 tablet 3 11/30/19 25 Active QUEtiapine (SEROquel) 50 MG tabletIndicatio ns:Fibromyalgia TAKE 1 TABLET BY MOUTH AT BEDTIME 90 tablet 3 11/26/19 24 025 Discontinued(Re order (will not trigger notification to Pharmacy)) Active Problems Problem Noted Date Diagnosed Date Atherosclerosis of aorta 11/30/2024 Overview (11/30/2024): -seen by Dr. Stauffer 11/30/24 Premature presents of abdominal aortic atherosclerosis suggestive of presence of systemic atherosclerotic process. She has multiple risk factors for the same including smoking, hypertension, hyperlipidemia as well as obesity and inactivity. Strongly discussed about management of atherosclerotic events and pathophysiology of atherosclerosis. Discussed complete smoking cessation, she will be trying for the same. Her blood pressure is currently well optimized on current medication importance of good blood pressure control was discussed. Advised to continue the same. She is currently on high-intensity statin therapy and advised to repeat lipid panel as well as CRP in near future to further guide aggressive lipid modification if needed. Target goal LDL less than 60 mg/dL. Eventually participate in regular physical activity was discussed and she says she has limitations due spine issues. Consider referral to minimally invasive spine surgery institute here. Chronic midline back pain 07/11/2024 Overview (09/07/2024): [...] (12/28/2023): The 10-year ASCVD risk score (Lewis QUAN et al., 2019) is: 13.2% Values used [...] due after 07/12/25 -eye care facilitated by [facility] -dental home is [facility] - Health care proxy paperwork completed by the patient 06/05/23 Assessment & Plan (06/05/2023 10:58 AM EDT): -next physical exam due after 06/04/24 -eye care facilitated by [facility] -dental home is [facility] -Health care proxy paperwork completed [...] as pharmacomtherapy, [facility] smoking cessation group, and [facility] pharmacy smoking cessation clinic Discussed USPSTF recommends annual lung cancer screening with low dose CT in people who meet the following criteria: -ages 50 to 80 years. -have a 20 pack-year smoking history. -currently smoke cigarettes or quit within the past 15 years. -LDCT 08/28/23 No evidence of pulmonary malignancy. Repeat in 1 year. -referred to Collaborative Drug Therapy Managment Program with our PharmDGERI 07/11/24 Assessment & Plan (07/11/2024 2:54 PM EDT): -Cigg/day: 10 -Age started: 17-quit for 7 years -Total years smokin -Pack year history: 21.75 -Discussed starting Chantix 08/27/22. -Declines Chantix as she tried Chantix in the past and reports unpleasant side effects (anxiety and shaking) Encouraged smoking cessation resources such as pharmacomtherapy, [facility] smoking cessation group, and [facility] pharmacy smoking cessation clinic Discussed USPSTF recommends annual lung cancer screening with low dose CT in people who meet the following criteria: -ages 50 to 80 years. -have a 20 pack-year smoking history. -currently smoke cigarettes or quit within the past 15 years. -LDCT 08/28/23 No evidence of pulmonary malignancy. Repeat in 1 year. -referred to Collaborative Drug Therapy Managment Program with our PharmDGERI 07/11/24 Assessment & Plan (12/28/2023 9:38 AM EDT): -Cigg/day: 10 -Age started: 17-quit for 7 years -Total years smokin -Pack year history: 21.75 -Discussed starting Chantix 08/27/22. -Declines Chantix as she tried Chantix in the past and reports unpleasant side effects (anxiety and shaking) Encouraged smoking cessation resources such as pharmacomtherapy, [facility] smoking cessation group, and [facility] pharmacy smoking cessation clinic Discussed USPSTF recommends [...] as pharmacomtherapy, [facility] smoking cessation group, and [facility] pharmacy smoking cessation clinic Discussed USPSTF recommends [...] as pharmacomtherapy, [facility] smoking cessation group, and [facility] pharmacy smoking cessation clinic Discussed USPSTF recommends [...] changes. 07/11/24 -note from Dr. Leeroy Cardenas, encoding clerk 08/30/24 reviewed. Unlikely has autoimmune syndrome given [...] will refer to to rheumatology -referred to [facility] pain group -has pain management -acupuncture advised [...] risk 16%, intermediate risk. -atorvastatin 40mg started 4/8/124 with goal LDL < 100, recheck FLP [...] Problem Noted Date Diagnosed Date Resolved Date Routine physical examination 11/01/2024 11/30/2024 Assessment & Plan (11/01/2024 10:24 AM EDT): Aside from obesity, all other chronic conditions are stable. 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 Open fracture of tooth 10/12/202411/30 Dental caries 10/12/2024 11/30/2024 Pain, dental 10/12/2024 11/30/2024 Acute midline back pain 03/25/2024 05/0 08/2024 [...] Encounters Date Type Department Care Team Description 11/30/2024 Telephone [facility] MEDICINE [address] [place] [address] Karina Wood MD Referral 11/27/[address] [address] Karina Wood MD Fibromyalgia 11/08/2024 Orders Only [address] [address] Jacinto Allred MD Tinea corporis (Primary Dx) 11/01/2024 10:30 AM EDT Office Visit [address] [address] Jacinto Allred MD Routine physical examination (Primary Dx); Class 1 obesity due to excess calories with serious comorbidity and body mass index (BMI) of 34.0 to 34.9 in adult 11/01/[address] [address] Jacinto Allred MD Telephone call 11/01/2024 Travel 10/31/[address] [address] Karina Wood MD CHART PREP 10/25/2024 Patient Outreach [address] [address] Karina Wood MD Pre-visit Planning ([facility] screening completed on 05/11/24 ) 10/24/2024 9:00 AM EDT Telemedicine [address] [address] Amy Shukla, PharmD Tobacco abuse (Primary Dx) 10/12/2024 11:00 AM EDT Office Visit [facility] ADULT DENTAL [address] [place] [address] Hermes Chambers DDS Open fracture of tooth, initial encounter (Primary Dx); Dental caries; Pain, dental 10/10/2024 Refill [facility] CHC MED & PEDS [address] [place], [place] [phone] Solange Jaeger MD Fibromyalgia 10/03/2024 Refill [facility] MED [facility] PEDS [address] [place] [address] Karina Wood MD 09/26/2024 Telephone [facility] MEDICINE [address] [place] [address] Karina Wood MD Lab Orders 09/21/2024 Telephone [facility] MEDICINE [address] [place] [address] Karina Wood MD 09/14/2024 Travel 08/31/2024 Results Follow-Up [facility] WALK-IN CENTER [address] [place] [address] Pramod Elizondo MD MR Lumbar Spine w/o Contrast 08/31/2024 Refill [facility] MEDICINE [address] [place] [address] Karina Wood MD Fibromyalgia 08/30/2024 10:20 AM EDT Office Visit [facility] WALK-IN CENTER [address] [place] [address] Pramod Elizondo MD Chronic right-sided low back pain with right-sided sciatica (Primary Dx); Chronic midline low back pain, unspecified whether sciatica present from Last 3 Months Immunizations Immunization Administration [...] 02/14/2021,08/08/19 21,07/11/2020 Pfizer Covid-19 Vaccine 12+ 12/28/2023, Pneumococcal Conjugate PCV 20 08/27/2022 Pneumococcal Polysaccharide [...] Description 01/02/2025 9:00 AM EDT Office Visit [facility] MEDICINE [address] [place] [address] Karina Wood MD [address] [place] [address] 01/18/2025 9:00 AM EST Telemedicine [facility] MEDICINE [address] [place] [address] Amy Shukla, PharmD [address] [place] [address] 02/06/2025 10:30 AM EST Office Visit [facility] OPTOMETRY [address] [place] [address] Annamarie Loja, OD [address] [place] [address] Health Maintenance Due Date Last Done Comments [...] Disability Screening 07/11/2025 07/11/2024 Mammogram 07/12/2025 07/12/2024, 0504/2023, 02/26/2021, Additional history exists Tobacco Screening 11/01/2025 [...] Author Smoking cessation General No Amy Verdugo, Cassandra Procedures Procedure Name Priority Date/Time Associated Diagnosis Comments T-SPOT(R).TB Routine 11/01/2024 10:48 AM EDT Screening for tuberculosis 14 EXTRACTION, ERUPTED TOOTH REQ REMOVAL OF [...] Recently Relevant to Health Maintenance Results * T-SPOT??.TB (11/01/2024 10:48 AM EDT) T Spot TB Negative Negative [facility] Comment:A negative test resu lt does not exclude the possibilityof exposure to or infection with Mycobacteriumtuberculosis (M. tuberculosis). Patients with recentexposure to TB infected individuals exhibiting anegative T-SPOT.TB result should be considered forretesting within 6 weeks or if other relevant clinicalsymptoms indicate. Results from T-SPOT.TB testing mustbe used in conjunction with each individual'sepidemiological history, current medical status,and results of other diagnostic evaluations.The T-SPOT.TB test is qualitative and results arereported as positive, borderline, or negative, giventhat the test controls perform as expected. In linewith the Centers for Disease Control and Prevention's2010 recommendation to report quantitative measurementsalongside the qualitative result, the laboratoryprovides spot counts for informational purposes only.The T-SPOT.TB test should not be interpreted as aquantitative test. TS PANEL A 0 [facility] TS PANEL B 1 [facility] Negative Control Passed [facility] Positive Control Passed [facility] Comment:For additional infor arcadio, please refer tohttp://education.[employer]/faq/ABQ243(This link is being provided for informational/educational purposes only.)THIS TEST WAS PERFORMED AT:[employer] [id number] [place] [address]PTMNOMYWENDY HARLEY MD,PHD 11/01/2024 10:4 8 AM EDT 11/01/2024 1:08 PM EDT Karina Wood MD LAB BLOOD ORDERABLES Final Result Performing Organization Address City/State/[facility] Co de Phone Number [facility] [address] [place] [phone] * MR Lumbar Spine w/o Contrast (08/31/2024 7:30 AM EDT) Anatomical Region Laterality Modality Spine, L-spine Magnetic Resonan ce 08/31/2024 7:30 AM EDT Narrative 08/31/2024 10:02 AM EDT [place] [address] Magnetic Resonance Report Signed Patient: Jodi Scott MR#: [id number] 98 : 1970 Acct:[id number] Age/Sex: 54 / F ADM Date: 08/31/24 Loc: HO.MRI Attending Dr: Pramod Elizondo MD Ordering Physician: PRAMOD ELIZONDO MD Date of Service: 08/31/24 Procedure(s): MR lumbar spine wo con Accession Number(s): [id number] cc: PRAMOD ELIZONDO MD; Karina Wood MD [...] subluxations. LUMBOSACRAL JUNCTION: -Normal. There are 5 ouw-swk-kxrpipz lumbar-type vertebral bodies. VERTEBRAL BODIES/BONE MARROW: -No [...] 08/31/24 0959 DD/ 0730 TD/TT: 08/31/24 0820 [employer] Tutor: Procedure Note Donotuseinterpreter, Image - 08/31/2024 [place] [address] Magnetic Resonance Report Signed Patient: Jodi Scott [facility]#: [id number] 98 : 1970Acct:[id number] Age/Sex: 54 / FADM Date: 08/31/24 Loc: HO.MRI Attending Dr: Pramod Elizondo MD Ordering Physician: PRAMOD ELIZONDO MD Date of Service: 08/31/24 Procedure(s): MR lumbar spine wo con Accession Number(s): [id number] cc: PRAMOD ELIZONDO MD; Karina Wood MD [...] subluxations. LUMBOSACRAL JUNCTION: -Normal. There are 5 rsd-sfi-ablgjqj lumbar-type vertebral bodies. VERTEBRAL BODIES/BONE MARROW: -No [...] 08/31/24 0959 DD/ 0730 TD/TT: 08/31/24 0820 [employer] Tutor: Pramod Elizondo MD IM MRI PROCEDURES Final Result * BI Mammogram Screening Tomosynthesis Bilateral (07/12/2024 9:25 AM EDT) Anatomical Region Laterality Modality Breast Bilateral Mammography 07/12/2024 9:25 AM EDT Narrative 07/17/2024 9:44 PM EDT [facility] [place] [address] Mammography Report Signed Patient: Jodi Scott MR#: [id number] 98 : 1970 Acct:[id number] Age/Sex: 54 / F ADM Date: 07/12/24 Loc: HO.MAMMO Attending Dr: Karina Wood MD Ordering Physician: Karina Wood MD Results: 1N egative Date of Service: 07/12/24 Follow Up: 1 Year From Orig ina Mammogram Procedure(s): MM tomosynthesis screening BI Accession Number(s): [id number] cc: Karina Wood MD EXAMINATION: MM SCREENING [...] Guillermina Camara DO 07/17/2024 09:41 PM EDT RP Dictated By: Guillermina Camara DO Signed By: <Electronically signed by Guillermina Camara DO in OV> 07/17/24 214 DD/ 4 TD/TT: 07/12/24 0940 [employer] Tutor: Procedure Note Donotuseinterpreter, Image - 07/17/20[facility] [address] [place] [address] Mammography Report Signed Patient: Jodi Scott [facility]#: [id number] 98 : 1970Acct:[id number] Age/Sex: 54 / FADM Date: 07/12/24 Loc: HO.MAMMO Attending Dr: Karina Wood MD Ordering Physician: Karina Wood MDResults: 1N egative Date of Service: 07/12/24Follow Up: 1 Year From Orig inal Mammogram Procedure(s): MM tomosynthesis screening BI Accession Number(s): [id number] cc: Karina Wood MD EXAMINATION: MM SCREENING [...] Guillermina Camara DO 07/17/2024 09:41 PM EDT RP Dictated By: Guillermina Camara DO Signed By: <Electronically signed by Guillermina Camara DO in OV> 07/17/242140 DD/ 4 TD/TT: 07/12/24 09 [employer] Tutor: Karina Wood MD IMG BI PROCEDURES Final Re sult * (ABNORMAL) Hemoglobin A1c (07/11/2024 10:22 AM EDT) Hemoglobin A1c 6.2(H) <6.0 % [facility] Comment:Hemoglobin A1C Refer ence Range Adults: 4.8 - 6.0 % Non diabetic: < 6.0 % Goal: < 7.0 %Additional Action Suggested: > 8.0 %Note: Hemoglobin A1c results are invalid for patients with abnormal amounts of HbF. Blood transfusions may impact the HbA1c concentration in the patient sample. Estimated Average Glucose 131 mg/dL [facility] Comment:eAG = Estimated ave rage glucose which is %A1C expressed asaverage glucose, using the formula of the G0D-TpwpcoiBfhllhp Glucose study (ADAG), Diabetes Care, Vol.31,#8,Oct. 2007 Blood Venous blood specimen / Unknown 07/11/2024 10:22 AM EDT 07/11/2024 11:08 AM EDT Karina Wood MD LAB BLOOD ORDERABLES Final Result [facility] [address] [place] [phone] * (ABNORMAL) Lipid Panel, Standard (03/29/2024 9:40 AM EST) Triglycerides 119 <150 mg/dL [facility] Comment:Desirable Triglyceri de: less than 150 mg/dLBorderline High Triglyceride 150-199 mg/dLHigh Triglyceride: 200-499 mg/dLVery High Triglyceride: greater than or equal to 5OO mg/dL Cholesterol 135 <200 mg/dL [facility] Comment:Desirable Cholestero l: less than 200 mg/dLBorderline High Cholesterol: 200-239 mg/dLHigh Cholesterol: greater than 239 mg/dL LDL Cholesterol Calculated 80 <100 mg/dL [facility] Comment:Desirable LDL: less than 100 mg/dLNear Optimal/Above Optimal LDL: 110- 129 mg/dLBorderline High LDL: 130-159 mg/dLHigh LDL: 160-189 mg/dLVery High LDL: greater than or equal to 190 mg/dL HDL Cholesterol 32(L) >40 mg/dL [facility] Comment:Desirable HDL: great er than 40 mg/dL Note: This HDL assay may give artificially low results in patients with liver disease. Blood Venous blood specimen / Unknown 03/29/2024 9:40 AM EST 03/29/2024 11:17 AM EST Karina Wood MD LAB BLOOD ORDERABLES Final Result Performing Organization Address City/State/[facility] Co de Phone Number [facility] [address] [place] [address] [phone] * CT Lung Screening Low dose (08/28/2023 10:30 AM EDT) Anatomical Region Laterality Modality Lung Computed Tomogra phy 08/28/2023 10:3 0 AM EDT Narrative 09/18/2023 4:39 PM EDT [place] [address] CT Scan Report Signed Patient: Jodi Scott MR#: [id number] 98 : 1970 Acct:[id number] Age/Sex: 53 / F ADM Date: 08/28/23 Loc: HO.CT Attending Dr: Kisha Green PA-C Ordering Physician: Kisha Green PA-C Date of Service: 08/28/23 Procedure(s): CT lung screening Accession Number(s): [id number] cc: Karina Wood MD; Kisha Green PA-C [...] for CT CHEST LOW DOSE CANCER SCREENING ([id number]) can be placed. Dictated By: Wei Jane MD Signed By: <Electronically signed by Wei Jane MD in OV> 09/18/23 1635 DD/ 1030 TD/TT: [employer] Tutor: Procedure Note Donotuseinterpreter, Image - 09/18/2023 [facility] [address] [place] [address] CT Scan Report Signed Patient: Jodi Scott [facility]#: [id number] 98 : 1970Acct:[id number] Age/Sex: 53 / FADM Date: 08/28/23 Loc: HO.CT Attending Dr: Kisha Green PA-C Ordering Physician: Kisha Green PA-C Date of Service: 08/28/23 Procedure(s): CT lung screening Accession Number(s): [id number] cc: Karina Wood MD; Kisha Green PA-C [...] for CT CHEST LOW DOSE CANCER SCREENING ([id number]) can be placed. Dictated By: Wei Jane MD Signed By: <Electronically signed by Wei Jane MD in OV> 09/18/23 1635 DD/ 1030 TD/TT: Elementary [employer] Tutor: ERNESTO [facility] External Provider IMG CT PROCEDURES Final Result * Hepatitis C Antibody with Reflex to HCV, RNA, Quantitative, Real-Time PCR (08/27/2022 10:12 AM EDT) Hepatitis C Antibody NON-REACT FARHAN NON-REACT FARHAN [employer] [place] [employer] Comment: HCV antibody was non-reactive. There is no laboratory evidence of HCV infection. In most cases, no further action is required. However, if recent HCV exposure is suspected, a test for HCV RNA (test code 09059) is suggested. For additional information please refer to http://education.[employer]/faq/VGE80g8 (This link is being provided for informational/ educational purposes only.) Blood Venous blood specimen / Unknown 08/27/2022 10:12 AM EDT 08/27/2022 10:13 AM EDT Narrative [facility] - 09/01/2022 12:38 AM EDT FASTING:YES REC'D IN WEBBER FASTING: YES Karina Wood MD LAB BLOOD ORDERABLES Final Result [facility] [address], [place] [address] [employer] [facility] [address] [place] [address] * HIV-1/2 Antigen and Antibodies, Fourth Generation, with Reflexes (08/27/2022 10:12 AM EDT) HIV Antigen/Antibody, 4th Generation NON-REAC TIVE NON-REAC TIVE [facility] Comment: HIV-1 antigen and HIV-1/HIV-2 antibodies [...] purpose. For additional information please refer to http://education.[employer]/faq/VZU291 (This link is being provided for informational/ educational purposes only.) The performance of this assay has not been clinically validated in patients less than 2 years old. Blood Venous blood specimen / Unknown 08/27/2022 10:12 AM EDT 08/27/2022 10:13 AM EDT Narrative [facility] - 09/01/2022 12:38 AM EDT FASTING:YES REC'D IN WEBBER FASTING: YES Karina Wood MD LAB BLOOD ORDERABLES Final Result Performing Organization Address City/State/[facility] Co de Phone Number [facility] [address], [place] [address] [employer] [place] [employer] [address] [place] [address] * Colonoscopy (07/12/2021) Colonoscopy tubular adenoma with Dr. Ortega Historical Provider HEALTH MAINTENANCE Final Result * Hm Pap Smear (12/26/2020) Pap Negative for intraephithelial lesion or malignancy Negative for intraephithelial lesion or malignancy, Other HPV Not Detected Undetected, Indeterminate, Quantitative, Not Detected Historical Provider HEALTH MAINTENANCE Final Result * Pap Smear (12/26/2020 12:00 AM EDT) Swab us Historical Provider MD LAB CYTOLOGY ORDERABLES F inal Result IMAGING from Last 3 Months or Most Recently Relevant to Health Maintenance Insurance Care Teams Shipping/Receiving Manager Relationship Specialty Start Date End Date Blairsden Graeagle, MD Karina [address] [place] [address] PCP - General Family Medicine 10/03/16 Marisel Alcala MD [address] [place] [address] Orthopaedic Surgery 03/31/24 Janel Lai [address]rd [place] [address] Gastroenterology 03/31/24 Amy Shukla, MalvinD [address] [place] [address] Pharmacist Internal Medicine 07/15/24 Leeroy Cardenas MD [facility] [place] [address] Rheumatology 09/07/24 Matthew Stauffer MD [address] [place] [address] Cardiology 11/30/24
--- OUTSIDE RECORDS SUMMARY | 2024-11-30 11:25 | XMS_ITS | Encounter Summary ---
Author Organization [email or web address] Address [address] [facility] 7t [place] [address] Care Team Providers Care Forklift Technician Name Role Phone Karina Wood MD Primary Care Provider [phone] Marisel Alcala MD Unavailable Janel Lai Unavailable Amy Shukla PharmD Unavailable [phone] Leeroy Cardenas MD Unavailable [phone] Reason for Visit * Reason Comments Med Refill Encounter Details Date Type Department Care Team (Late st Contact Info) Description 11/27/2024 Refill [facility] MEDICINE [address] [place], [place] [phone] Karina Wood MD [address] [place], [place] [phone] Fibromyalgia Social History Tobacco Use Types Packs/Day [...] Upcoming Encounters Date Type Department Care Team ([facility] st Contact Info) Description 01/02/2025 9:00 AM EDT Office Visit [facility] MEDICINE [address] [place] [phone] Karina Wood MD [address] [place] [address] 01/18/2025 9:00 AM EST Telemedicine [facility] MEDICINE [address] [place] [address] Amy Shukla, MalvinD [address] [place] [address] 02/06/2025 10:30 AM EST Office Visit [facility] OPTOMETRY [address] [place] [phone] Annamarie Loja, OD [address] [place] [address] documented as of this encounter Goals Goal Patient Goal Type Associated Problems Recent Progress Patient-Stated? Author Smoking cessation General No Amy Verdugo PharmD documented as of this encounter Visit Diagnoses Diagnosis Fibromyalgia Unspecified myalgia and myositis documented in this encounter Additional Health Concerns Assessment Noted Time PHQ-9 Depression Total Score: 14 025 10:02 AM EDT documented as of this encounter Care Teams Forklift Technician Relationship Specialty Start Date End Date Karina Wood MD [address] [place] [address] PCP - General Family Medicine 10/03/16 Marisel Alcala MD [address] [place] [address] Orthopaedic Surgery 03/31/24 Janel Lai [address] [place] [address] Gastroenterology 03/31/24 Amy Shukla, MalvinD [address] [place] [address] Pharmacist Internal Medicine 07/15/24 Leeroy Cardenas MD [address] [place] [address] Rheumatology 09/07/24 documented as of this encounter
--- OUTSIDE RECORDS SUMMARY | 2024-11-30 11:25 | XMS_ITS | Encounter Summary ---
Author Organization [email or web address] Address [address] [facility] 7t [place] [address] Care Team Providers Care Book Binder Name Role Phone Karina Wood MD Primary Care Provider Amy Shukla PharmD Unavailable [phone] Marisel Alcala MD Unavailable Janel Lai Unavailable Amy Shukla PharmD Unavailable [phone] Leeroy Cardenas MD Unavailable [phone] Matthew Stauffer MD Unavailable Encounter Details Date Type Department Care Team (Late st Contact Info) Description 03/31/2022 Orders Only [facility] MED & PEDS [address] [place], [place] [phone] Gauri Negron LPN Social History Tobacco Use [...] Department Care Team (Late Contact Info) Description 01/02/2025 9:00 AM EDT Office Visit [facility] MEDICINE [address] [place], [place] [phone] Karina Wood MD [address] [place], [place] [phone] 01/18/2025 9:00 AM EST Telemedicine [facility] MEDICINE [address] [place] [address] Amy Shukla PharmD [address] [place] [address] 02/06/2025 10:30 AM EST Office Visit [facility] OPTOMETRY [address] [place] [address] Freedom, Annamarie, OD [address] [place] [address] documented as of this encounter Visit Diagnoses Not on filedocumented in this encounter Care Teams Book Binder Relationship Specialty Start Date End Date Karina Wood MD [address] [place] [address] PCP - General Family Medicine 10/03/16 Amy Shukla, PharmD [address] [place] [address] Pharmacist Internal Medicine 07/17/22 01/05/23 Marisel Alcala MD [address] [place] [address] Orthopaedic Surgery 03/31/24 Janel Lai [address] 3rd [place] [address] Gastroenterology 03/31/24 Amy Shukla, PharmD [address] [place] [address] Pharmacist Internal Medicine 07/15/24 Leeroy Cardenas MD [address] [place] [address] Rheumatology 09/07/24 Matthew Stauffer MD [address] 3rd Floor [place] [address] Cardiology 11/30/24 documented as of this encounter
--- OUTSIDE RECORDS SUMMARY | 2024-11-30 11:25 | XMS_ITS | Encounter Summary ---
Author Organization [employer] Address [address] [facility] 7t [place] [address] Care Team Providers Care Documentation Consultant Name Role Phone Kairna Wood MD Primary Care Provider [phone] Amy Shukla PharmD Unavailable [phone] Marisel Alcala MD Unavailable Janel Lai Unavailable Amy Shukla PharmD Unavailable [phone] Leeroy Cardenas MD Unavailable Matthew Stauffer MD Unavailable Encounter Details Date Type Department Care Team (Late st Contact Info) Description 04/11/2022 Abstract [facility] MEDICINE [address] [place] [address] [phone] Karina Wood MD [address] [place] [address] [phone] Social History Tobacco Use Types Packs/Day Years [...] Description 01/02/2025 9:00 AM EDT Office Visit [facility] MEDICINE [address] [place] [address] [phone] Karina Wood MD [address] [place] [address] 01/18/2025 9:00 AM EST Telemedicine [facility] MEDICINE [address] [place] [address] Amy Shukla, PharmD [address] [place] [address] 02/06/2025 10:30 AM EST Office Visit [facility] OPTOMETRY [address] [place] [address] Freedom, Annamarie, OD [address] [place] [address] documented as of this encounter Procedures Procedure [...] on filedocumented in this encounter Care Teams Documentation Consultant Relationship Specialty Start Date End Date Karina Wood MD [address] [place] [address] PCP - General Family Medicine 10/03/16 Amy Shukla, PharmD [address] [place] [address] Pharmacist Internal Medicine 07/17/22 01/05/23 Marisel Alcala MD [address] [place] [address] Orthopaedic Surgery 03/31/24 Janel Lai [address] 3rd [place] [address] Gastroenterology 03/31/24 Amy Shukla PharmD [address] [place] [address] Pharmacist Internal Medicine 07/15/24 Leeroy Cardenas MD [address] [place] [address] Rheumatology 09/07/24 Matthew Stauffer MD [address] 3rd [place] [address] Cardiology 11/30/24 documented as of this encounter
--- OUTSIDE RECORDS SUMMARY | 2024-11-30 11:25 | XMS_ITS | Encounter Summary ---
Author Organization [employer] Address [address] [facility] 7t [place] [address] Care Team Providers Care Leather Leveler Name Role Phone Karina Wood MD Primary Care Provider + [phone] Amy Shukla PharmD Unavailable [phone] Marisel Alcala MD Unavailable Janel Lai Unavailable Amy Shukla PharmD Unavailable [phone] Leeroy Cardenas MD Unavailable [phone] Matthew Stauffer MD Unavailable Reason for Visit * Reason Comments Med Refill Encounter Details Date Type Department Care Team (Late st Contact Info) Description 08/27/[address] [facility] MEDICINE [address] [place], [place] [phone] Karina Wood MD [address] [place], [place] [phone] Social History Tobacco Use Types [...] Description 01/02/2025 9:00 AM EDT Office Visit [facility] MEDICINE [address] [place] [address] Karina Wood MD [address] [place] [address] 01/18/2025 9:[address] [facility] MEDICINE [address] [place] [address] Amy Shukla PharmD [address] [place] [address] 02/06/2025 10:30 AM EST Office Visit [facility] OPTOMETRY [address] [place] [address] Annamarie Loja, OD [address] [place] [address] documented as of this encounter Goals Goal Patient Goal Type Associated Problems Recent Progress Patient-Stated? Author Smoking cessation General No Amy Verdugo PharmD documented as of this encounter Visit Diagnoses Not on filedocumented in this encounter Care Teams Leather Leveler Relationship Specialty Start Date End Date Karina Wood MD [address] [place] [address] PCP - General Family Medicine 10/03/16 Aym Shukla, PharmD [address] [place] [address] Pharmacist Internal Medicine 07/17/22 01/05/23 Marisel Alcala MD [address] [place] [address] Orthopaedic Surgery 03/31/24 Janel Lai [address] [place] [address] Gastroenterology 03/31/24 Amy Shukla PharmD [address] [place] [address] Pharmacist Internal Medicine 07/15/24 Leeroy Cardenas MD [address] [place] [address] Rheumatology 09/07/24 Matthew Stauffer MD [address] [place] [address] Cardiology 11/30/24 documented as of this encounter
== END 2024-11-30 10:14 | disposition home or self-care (01) ==
LOC: HO.HCS 09:33
PROVIDERS: PCP Family Medicine; Visit Provider Internal Medicine Cardiovascular Disease
DX: R94.31 Abnormal electrocardiogram [ECG] [EKG] (principal); I70.0 Atherosclerosis of aorta
CPT/HCPCS: 93010; 99204

== ENCOUNTER → 2024-11-30 09:32 | Outpatient (BNVA) | payer MEDICAID, SELFPAY | PROVIDERS: PCP Family Medicine; Visit Provider Internal Medicine Cardiovascular Disease | DX: R94.31 Abnormal electrocardiogram [ECG] [EKG] (principal); I70.0 Atherosclerosis of aorta | CPT/HCPCS: 93005; 99202 ==

== ENCOUNTER → 2024-12-28 07:16 | Outpatient (REF) | payer MEDICAID, SELFPAY ==
--- NOTE | 2024-12-28 07:36 | CA_ITS ---
Transthoracic Echocardiogram Patient (Last, First, Middle): Jodi Scott N Gender: F Date of : 1970 Age: 54 Procedure Date: 12/28/2024 Procedure Type: Transthoracic Echocardiogram Location: OP Height: 170.18 cm Weight: 99.34 kg BSA: 2.10 m2 Heart Rate: bpm BP: 130 / 90 mmHg Regulatory Attorney: TIM Referring MD: Matthew Stauffer MD Embossing Toolsetter: Matthew Stauffer MD Symptoms: R94.31 - Abnormal electrocardiogram [ECG] [EKG] Study Quality: Adequate ECG Rhythm: Sinus Conclusions: - 1. Normal LV ejection fraction 65-70% with mild LVH with impaired relaxation filling pattern 2. Normal cardiac valvular Dopplers 3. Normal RV systolic pressure 4. No pericardial effusion Findings Left Ventricle Normal left ventricular size and systolic function. There is mildly increased left ventricular wall thickness. The visually estimated ejection fraction is between 65-70%. Spectral Doppler is indicative of an impaired relaxation filling pattern. Right Ventricle Normal right ventricular cavity size and systolic function. Atria The left atrium is mildly dilated. There is a mobile atrial septum noted. Interatrial shunt cannot be excluded. The right atrium is normal in size. Aortic Valve Normal aortic valve structure and function. There is no aortic valve stenosis. There is no aortic valve regurgitation. Mitral Valve Normal mitral valve structure and function. There is trace mitral valve regurgitation. There is no mitral valve stenosis. Pulmonic Valve The pulmonic valve is likely normal. Tricuspid Valve Normal tricuspid valve structure. There is trace tricuspid valve regurgitation. The right ventricular systolic pressure is normal. The right ventricular systolic pressure is 19 mmHg. Normal right atrial pressure. There is no evidence of pulmonary hypertension. Great Vessels All visible segments of the aorta are normal in size. The pulmonary artery was not well visualized. There is no dilatation of the ascending aorta measuring 3.10 cm. Venous The inferior vena cava is normal in size and collapses greater than 50% with inspiration. Pericardium/Pleural There is no evidence of pericardial effusion. Prior Study Comparison No prior study available for comparison. Measurements 2D Linear Measurements IVSd: 1.33 0.6-0.9/0.6-1.0 cm LVIDd: 5.10 3.9-5.3/4.2-5.9 cm LVIDd Index: 2.43 2.4-3.2/2.2-3.1 cm/m2 LVIDs: 3.23 2.0-3.6 cm LVPWd: 1.22 0.7-1.1 cm Ao Root: 3.20 2.1-3.5 cm LA Diam: 4.20 2.7-3.8/3.0-4.0 cm LAIDs Index: 2.00 1.5-2.3 cm/m2 LV Mass: 327.65 67-162/88-224 g LV Mass Index: 156.02 43-95/49-115 g/m2 LVOT Diam: 2.20 3.0+(-)1.3 cm 2D Systolic Function EF 4C: 66.60 >55% EF 2C: 64.60 >55% EF BiP: 66.60 >55% Mitral Valve MV Pk E: 0.70 MV PK A: 0.78 MV Decel Time: 239.00 E/A: 0.90 E'Lateral: 7.72 E'Medial: 5.98 E/E' Med: 11.80 E/E' Lat: 9.10 PHT: 70.00 MVA PHT: 3.[address] [place]: 2.94 Aortic Valve AoV Pk Mert: 1.48 AoV Mn Mert: 0.93 AoV VTI: 0.34 AoV Pk Grad: 9.00 Aov Mn Grad: 4.00 ALTA Cont.VTI: 2.64 LVOT LVOT Pk Mert: 0.97 LVOT Mn Mert: 0.66 LVOT VTI: 0.23 LVOT Pk Grad: 4.00 LVOT Mn Grad: 2.00 LVOT Diam: 2.20 LVOT Area: 3.80 Diastolic Function MV Pk E: 0.70 MV Pk A: 0.78 E/A: 0.90 E'Medial: 5.98 E/E' Med: 11.80 E' Laterial: 7.72 E/E' Lat: 9.10 Right Ventricle TAPSE (mm): 25.00 TVS' Mert: 11.00 Tricuspid Valve TR Pk Mert: 2.02 TR Pk Grad: 16.00 RA Press: 3.00 RVSP: 19.00 Great Vessels Aorta Ao Root-2D: 3.20 2.0-3.7 cm Ao Asc: 3.10 2.1-3.4 cm Pulmonary Valve PV Pk Mert: 1.00 Peak PV Grad: 4.00 Updated in Other Vendor System with Status of Final Matthew Stauffer MD electronically signed on 12/29/2024 4:09:18 PM with status of Final
[2024-12-28 08:45] LABS: Cholesterol 126 mg/dL (<200); HDL Cholesterol 28 mg/dL (>40); Triglycerides 160 mg/dL (<150)
== END ==
LOC: HO.CARD 07:16
PROVIDERS: PCP Family Medicine; Visit Provider Internal Medicine Cardiovascular Disease
DX: I70.0 Atherosclerosis of aorta (principal); E78.5 Hyperlipidemia, unspecified; R94.31 Abnormal electrocardiogram [ECG] [EKG]
CPT/HCPCS: 36415; 80061; 86141; 93306

== ENCOUNTER → 2024-12-28 07:36 | Outpatient (BNV) | payer MEDICAID, SELFPAY | PROVIDERS: PCP Family Medicine; Visit Provider Internal Medicine Cardiovascular Disease | DX: R94.31 Abnormal electrocardiogram [ECG] [EKG] (principal); I51.89 Other ill-defined heart diseases | CPT/HCPCS: 93306 ==